=== PATIENT | male | born 1940 | race Caucasian/White ===

== ENCOUNTER 2022-12-26 21:05 | Inpatient (IN) | payer MEDICAID, OTHER ==
[~2022-12-26] VITALS: Ht 182.9 cm; Wt 77.1 kg
[~2022-12-26 21:05] MED LIST: ETOMIDATE 20 MG/10 ML VIAL ONE; SUCCINYLCHOLINE CHLORIDE 200 MG/10 ML VIAL ONE
[2022-12-26] MEDS ORDERED: levoFLOXacin 750MG/D5W 150 ML IV ONE ×2 (21:30→22:35)
[2022-12-26] MEDS ORDERED: ETOMIDATE 20 MG/10 ML VIAL IV ONE (21:30)
[2022-12-26] MEDS ORDERED: CEFTRIAXONE 1 G in IV DEXTROSE 5% 50 ML IV ONE (21:30)
[2022-12-26] MEDS ORDERED: IV NORMAL SALINE 1000 ML BAG IV ONE (21:30)
[2022-12-26] MEDS ORDERED: SUCCINYLCHOLINE CHLORIDE 200 MG/10 ML VIAL IV ONE (21:30)
[2022-12-26] MEDS ORDERED: PROPOFOL 100 ML ONE (21:31)
[2022-12-26] MEDS ORDERED: CARB1TAB21 PO (21:37)
[2022-12-26] MEDS ORDERED: ZOLP5TAB8 PO (21:37)
[2022-12-26] MEDS ORDERED: QUET25TA PO (21:37)
[2022-12-26] MEDS ORDERED: CHOL10005 PO (21:37)
[2022-12-26 21:57] LABS: BASOPHILS % (AUTO) 0.5 % (0.0-2.0); EOSINOPHILS % (AUTO) 0.5 % (0.0-7.0); HEMATOCRIT 38.8 % (36.7-47.1); HEMOGLOBIN 12.9 g/dL (12.5-16.3); LYMPHOCYTES % (AUTO) 12.1 % (20.5-51.5); MEAN CORPUSCULAR HEMOGLOBIN 28.4 uug (23.8-33.4); MEAN CORPUSCULAR HGB CONC 33 g/dL (32.5-36.3); MEAN CORPUSCULAR VOLUME 85.4 fL (73.0-96.2); MONOCYTES # (AUTO) 0.8 K/uL (0.1-1.30); MONOCYTES % (AUTO) 9.8 % (0.0-11.0); NEUTROPHILS # (AUTO) 6.2 K/uL (1.8-8.9); NEUTROPHILS % (AUTO) 77.1 % (38.5-71.5); PLATELET COUNT (AUTO) 126 K/uL (152-348); RED BLOOD CELL COUNT(AUTO) 4.54 MIL/uL (4.06-5.63); RED CELL DISTRIBUTION WIDTH 16.5 % (12.1-16.2)
[2022-12-26 22:03] LABS: DIFFERENTIAL COMMENT 1
[2022-12-26 22:17] LABS: ABG BASE EXCESS -3.8 mmol/L; ABG HCO3 20.6 mmol/L; ABG PCO2 35.2 mmHg (35.0-45.0); ABG PH 7.385 (7.350-7.450); ABG PO2 162.9 mmHg (75.0-100.0); ABG SITE LEFT RADIAL; ABG TOTAL HEMOGLOBIN 13.3 G/dL (13.5-18.0); COHb 1.4 % (0.5-1.5); MetHb 0.2 % (0.0-1.5); O2Hb 97.5 % (94.0-97.0); VENT MODE VENT - A/C; VT, ABG 550 mL
[2022-12-26 22:23] LABS: ALANINE AMINOTRANSFERASE 6 U/L (16-63); ALBUMIN 3.2 g/dL (3.4-5.0); ALKALINE PHOSPHATASE 55 U/L (50-136); ASPARTATE AMINOTRANSFERASE 6 U/L (15-37); BILIRUBIN,DIRECT 0.2 mg/dL (0.0-0.2); BILIRUBIN,TOTAL 0.9 mg/dL (0.2-1.0); CALCIUM 8.3 mg/dL (8.5-10.1); CARBON DIOXIDE 30 mmol/L (21-32); CHLORIDE 107 mmol/L (98-107); CREATININE 2.2 mg/dL (0.6-1.3); GLUCOSE 105 mg/dL (74-106); NT-PRO BNP 2416 pg/mL (0-125); POTASSIUM 5.1 mmol/L (3.5-5.1); SODIUM SERUM 142 mmol/L (136-145); TOTAL PROTEIN, SERUM 6.6 g/dL (6.4-8.2); UREA NITROGEN, BLOOD 45 mg/dL (7-18)
[2022-12-26] MEDS ORDERED: CEFTRIAXONE /D5W 50ML IVPB **ER PYXIS IV ONE (22:35)
[2022-12-26] MEDS ORDERED: ONDANSETRON 4 MG/2 ML VIAL IV PRN (23:15)
[2022-12-26] MEDS ORDERED: PROPOFOL 100 ML IV ONE (23:30)
[2022-12-27] VITALS (36 sets, daily range): BP systolic 51–149; BP diastolic 27–90; TEMP 97.8–101.8; O2SAT 80–100
[2022-12-27 00:34] LABS: *BILIRUBIN,URIN NEGATIVE (NEGATIVE); *BLOOD, URINE 2+ (NEGATIVE); *CLARITY,URINE CLEAR (CLEAR); *COLOR,URINE YELLOW (YELLOW); *KETONES,URINE TRACE (NEGATIVE); *PROTEIN,URINE NEGATIVE (NEGATIVE); *UROBILINOGEN,URINE 0.2 E.U./dl (NORMAL); LEUKOCYTE ESTERASE ,URINE NEGATIVE (NEGATIVE); NITRITE, URINE NEGATIVE (NEGATIVE); PH,URINE 5.5 (5.0-8.0); UGLUCOSE NEGATIVE (NEGATIVE)
[2022-12-27 00:48] LABS: BACTERIA,URINE FEW /HPF (NONE SEEN); RBC,URINE 20-50 /HPF (0-3)
[2022-12-27 00:49] LABS: SQUAMOUS EPITHELIAL CELL,UR FEW /HPF (NONE SEEN)
[2022-12-27] MEDS ORDERED: VANCOMYCIN HCL 500 MG VIAL ONE ×2 (01:32→21:41)
[2022-12-27] MEDS ORDERED: VANCOMYCIN 1000 MG VIAL ONE ×2 (01:32→21:41)
[2022-12-27] MEDS ORDERED: CEFEPIME HCL 1 G VIAL ONE ×2 (01:32→21:41)
[2022-12-27] MEDS: VANCOMYCIN IV 1,500 MG in IV DEXTROSE 5% 500 ML IV ONE ×2 (01:45→02:01)
[2022-12-27] MEDS: CEFEPIME HCL 2 G in IV DEXTROSE 5% 100 ML IV SCH ×3 (01:45→13:23)
[2022-12-27] MEDS: IV NS 1000 ML 1,000 ML IV PRN ×3 (01:59→18:04)
[2022-12-27] MEDS ORDERED: PROPOFOL 100 ML IV ONE (02:15)
[2022-12-27] MEDS ORDERED: PROPOFOL 100 ML ONE ×3 (02:21→17:11)
[2022-12-27 05:27] LABS: BASOPHILS % (AUTO) 0.7 % (0.0-2.0); EOSINOPHILS # (AUTO) 0.1 K/uL (0.0-0.7); EOSINOPHILS % (AUTO) 2.3 % (0.0-7.0); HEMATOCRIT 33.7 % (36.7-47.1); LYMPHOCYTES # (AUTO) 0.8 K/uL (0.8-4.8); LYMPHOCYTES % (AUTO) 21.7 % (20.5-51.5); MEAN CORPUSCULAR HEMOGLOBIN 27.9 uug (23.8-33.4); MEAN CORPUSCULAR HGB CONC 33 g/dL (32.5-36.3); MEAN CORPUSCULAR VOLUME 85.1 fL (73.0-96.2); MONOCYTES # (AUTO) 0.3 K/uL (0.1-1.30); MONOCYTES % (AUTO) 8.8 % (0.0-11.0); NEUTROPHILS # (AUTO) 2.5 K/uL (1.8-8.9); NEUTROPHILS % (AUTO) 66.5 % (38.5-71.5); PLATELET COUNT (AUTO) 97 K/uL (152-348); RED BLOOD CELL COUNT(AUTO) 3.96 MIL/uL (4.06-5.63); RED CELL DISTRIBUTION WIDTH 16.6 % (12.1-16.2); WHITE BLOOD COUNT (AUTO) 3.8 K/uL (3.6-10.2)
[2022-12-27 05:29] LABS: DIFFERENTIAL COMMENT 1
[2022-12-27] MEDS ORDERED: CEFEPIME HCL 2 G in IV DEXTROSE 5% 100 ML IV SCH (06:00)
[2022-12-27 06:06] LABS: CHLORIDE 110 mmol/L (98-107); POTASSIUM 4.9 mmol/L (3.5-5.1); SODIUM SERUM 141 mmol/L (136-145)
[2022-12-27 06:07] LABS: CALCIUM 7.3 mg/dL (8.5-10.1); CARBON DIOXIDE 24 mmol/L (21-32); CREATININE 1.8 mg/dL (0.6-1.3); GLUCOSE 114 mg/dL (74-106); PHOSPHOROUS 3.3 mg/dL (2.5-4.9); UREA NITROGEN, BLOOD 41 mg/dL (7-18)
[2022-12-27 06:08] LABS: ALANINE AMINOTRANSFERASE < 6 U/L (16-63); ALBUMIN 2.5 g/dL (3.4-5.0); ALKALINE PHOSPHATASE 50 U/L (50-136); ASPARTATE AMINOTRANSFERASE 9 U/L (15-37); BILIRUBIN,TOTAL 0.5 mg/dL (0.2-1.0); MAGNESIUM 1.7 mg/dL (1.8-2.4); TOTAL PROTEIN, SERUM 5.6 g/dL (6.4-8.2)
[2022-12-27 06:24] LABS: EOSINOPHILS % (MANUAL) 2 % (0-8); LYMPHOCYTES % (MANUAL) 22 % (20-40); MONOCYTES % (MANUAL) 7 % (2-10); NEUTROPHILS % (MANUAL) 69 % (42-75); PLATELET ESTIMATE MARKED DECREASED
[2022-12-27 06:25] LABS: ANISOCYTOSIS 1+
[2022-12-27] MEDS ORDERED: NOREPINEPHRINE BITARTRATE 32 MG in IV NORMAL SALINE 218 ML IV PRN (07:00)
[2022-12-27] MEDS ORDERED: NOREPINEPHRINE BITARTRATE 4 MG/4 ML VIAL IV ONE (07:01)
[2022-12-27] MEDS: PHENYLEPHRINE IV 100 MG in IV NORMAL SALINE 240 ML IV PRN ×2 (08:17→18:21)
[2022-12-27] MEDS ORDERED: MAGNESIUM SULFATE/D5W 100 ML IV SCH (09:30)
[2022-12-27] MEDS: PROPOFOL 100 ML IV PRN ×2 (10:04→17:53)
[2022-12-27 10:08] LABS: ABG BASE EXCESS -10.3 mmol/L; ABG HCO3 16.6 mmol/L; ABG PCO2 40.3 mmHg (35.0-45.0); ABG PH 7.233 (7.350-7.450); ABG PO2 110.5 mmHg (75.0-100.0); ABG SITE RIGHT RADIAL; ABG TOTAL HEMOGLOBIN 14.8 G/dL (13.5-18.0); COHb 0.9 % (0.5-1.5); MetHb 0.2 % (0.0-1.5); O2Hb 97.1 % (94.0-97.0); VENT MODE VENT - A/C; VT, ABG 550 mL
[2022-12-27] MEDS ORDERED: HEPARIN SODIUM,PORCINE 5,000 UNITS/ML VIAL ONE (11:08)
[2022-12-27] MEDS: HEPARIN SODIUM,PORCINE 5,000 UNITS/ML VIAL SQ SCH ×2 (11:13→21:19)
[2022-12-27] MEDS: ACETAMINOPHEN 650 MG SUPP.RECT RC PRN (16:42)
[2022-12-28] VITALS (29 sets, daily range): BP systolic 88–148; BP diastolic 40–83; TEMP 97.8–103.9; O2SAT 96–100
[2022-12-28] MEDS: CEFEPIME HCL 2 G in IV DEXTROSE 5% 100 ML IV SCH ×2 (01:41→14:25)
[2022-12-28] MEDS: PROPOFOL 100 ML IV PRN ×4 (02:42→18:58)
[2022-12-28] MEDS ORDERED: VANCOMYCIN IV 1,250 MG in IV DEXTROSE 5% 250 ML IV SCH (04:00)
[2022-12-28 05:01] LABS: BASOPHILS % (AUTO) 0.5 % (0.0-2.0); EOSINOPHILS % (AUTO) 0.3 % (0.0-7.0); HEMATOCRIT 39.3 % (36.7-47.1); HEMOGLOBIN 12.8 g/dL (12.5-16.3); LYMPHOCYTES # (AUTO) 0.9 K/uL (0.8-4.8); LYMPHOCYTES % (AUTO) 13.4 % (20.5-51.5); MEAN CORPUSCULAR HEMOGLOBIN 27.8 uug (23.8-33.4); MEAN CORPUSCULAR HGB CONC 33 g/dL (32.5-36.3); MEAN CORPUSCULAR VOLUME 85.6 fL (73.0-96.2); MONOCYTES # (AUTO) 0.7 K/uL (0.1-1.30); MONOCYTES % (AUTO) 10.2 % (0.0-11.0); NEUTROPHILS # (AUTO) 5.1 K/uL (1.8-8.9); NEUTROPHILS % (AUTO) 75.6 % (38.5-71.5); PLATELET COUNT (AUTO) 136 K/uL (152-348); RED CELL DISTRIBUTION WIDTH 17.2 % (12.1-16.2); WHITE BLOOD COUNT (AUTO) 6.7 K/uL (3.6-10.2)
[2022-12-28 05:07] LABS: *SODIUM RNDM,URINE 70 mmol/L (40-220)
[2022-12-28 05:08] LABS: DIFFERENTIAL COMMENT 1
[2022-12-28 05:11] LABS: ALANINE AMINOTRANSFERASE 24 U/L (16-63); ALBUMIN 2.2 g/dL (3.4-5.0); ALKALINE PHOSPHATASE 63 U/L (50-136); ASPARTATE AMINOTRANSFERASE 36 U/L (15-37); BILIRUBIN,TOTAL 0.6 mg/dL (0.2-1.0); CALCIUM 7.9 mg/dL (8.5-10.1); CARBON DIOXIDE 22 mmol/L (21-32); CHLORIDE 110 mmol/L (98-107); CREATININE 2.1 mg/dL (0.6-1.3); GLUCOSE 133 mg/dL (74-106); POTASSIUM 5.4 mmol/L (3.5-5.1); SODIUM SERUM 140 mmol/L (136-145); TOTAL PROTEIN, SERUM 5.8 g/dL (6.4-8.2); UREA NITROGEN, BLOOD 42 mg/dL (7-18)
[2022-12-28] MEDS: IV NS 1000 ML 1,000 ML IV PRN ×2 (06:35→18:58)
[2022-12-28] MEDS: ACETAMINOPHEN 650 MG SUPP.RECT RC PRN ×2 (08:10→18:39)
[2022-12-28 08:13] LABS: ABG BASE EXCESS -5.7 mmol/L; ABG HCO3 19.1 mmol/L; ABG PCO2 35.7 mmHg (35.0-45.0); ABG PH 7.347 (7.350-7.450); ABG PO2 85.1 mmHg (75.0-100.0); ABG SITE LEFT RADIAL; ABG TOTAL HEMOGLOBIN 13.9 G/dL (13.5-18.0); COHb 0.5 % (0.5-1.5); MetHb 0.3 % (0.0-1.5); O2Hb 95.7 % (94.0-97.0); VENT MODE VENT - A/C; VT, ABG 550 mL
[2022-12-28] MEDS: HEPARIN SODIUM,PORCINE 5,000 UNITS/ML VIAL SQ SCH ×2 (08:16→20:53)
[2022-12-28] MEDS ORDERED: SODIUM POLYSTYRENE SULFONATE 15 G/60 ML LIQUID UDC PO ONE (08:30)
[2022-12-28] MEDS ORDERED: SODIUM POLYSTYRENE SULFONATE 15 G/60 ML LIQUID UDC NG ONE (09:00)
[2022-12-28] MEDS: FAMOTIDINE. 20 MG/2 ML VIAL IV SCH (09:24)
[2022-12-28] MEDS: PHENYLEPHRINE IV 100 MG in IV NORMAL SALINE 240 ML IV PRN (11:49)
[2022-12-28] MEDS: JEVITY 1.2 1000 ML LIQUID GT PRN (14:55)
[2022-12-28] MEDS: PROTEIN SUPPLEMENT (PROSTAT) 30 ML LIQUID GT SCH (17:25)
[2022-12-29] VITALS (41 sets, daily range): BP systolic 95–150; BP diastolic 50–100; TEMP 97.7–100; O2SAT 94–100
[2022-12-29] MEDS: CEFEPIME HCL 2 G in IV DEXTROSE 5% 100 ML IV SCH ×2 (02:50→13:31)
[2022-12-29] MEDS: PROPOFOL 100 ML IV PRN ×3 (03:01→21:31)
[2022-12-29 04:46] LABS: BASOPHILS % (AUTO) 0.7 % (0.0-2.0); EOSINOPHILS # (AUTO) 0.2 K/uL (0.0-0.7); EOSINOPHILS % (AUTO) 3.5 % (0.0-7.0); HEMATOCRIT 34.6 % (36.7-47.1); HEMOGLOBIN 11.4 g/dL (12.5-16.3); LYMPHOCYTES # (AUTO) 0.8 K/uL (0.8-4.8); LYMPHOCYTES % (AUTO) 15.4 % (20.5-51.5); MEAN CORPUSCULAR HEMOGLOBIN 27.8 uug (23.8-33.4); MEAN CORPUSCULAR HGB CONC 33 g/dL (32.5-36.3); MEAN CORPUSCULAR VOLUME 84.7 fL (73.0-96.2); MONOCYTES # (AUTO) 0.5 K/uL (0.1-1.30); NEUTROPHILS # (AUTO) 3.7 K/uL (1.8-8.9); NEUTROPHILS % (AUTO) 71.4 % (38.5-71.5); PLATELET COUNT (AUTO) 109 K/uL (152-348); RED BLOOD CELL COUNT(AUTO) 4.09 MIL/uL (4.06-5.63); RED CELL DISTRIBUTION WIDTH 16.9 % (12.1-16.2); WHITE BLOOD COUNT (AUTO) 5.2 K/uL (3.6-10.2)
[2022-12-29 05:19] LABS: CARBON DIOXIDE 22 mmol/L (21-32); CHLORIDE 113 mmol/L (98-107); CREATININE 1.5 mg/dL (0.6-1.3); GLUCOSE 123 mg/dL (74-106); MAGNESIUM 1.9 mg/dL (1.8-2.4); PHOSPHOROUS 2.4 mg/dL (2.5-4.9); POTASSIUM 4.3 mmol/L (3.5-5.1); SODIUM SERUM 144 mmol/L (136-145); UREA NITROGEN, BLOOD 36 mg/dL (7-18); VANCOMYCIN,RANDOM 14.5 ug/mL (18.0-26.0)
[2022-12-29 05:20] LABS: DIFFERENTIAL COMMENT 1
[2022-12-29] MEDS ORDERED: ACETAMINOPHEN 650 MG/20.3 ML LIQUID UDC NG PRN (07:30)
[2022-12-29] MEDS: IV NS 1000 ML 1,000 ML IV PRN ×2 (07:49→21:30)
[2022-12-29 08:07] LABS: ABG BASE EXCESS -5.9 mmol/L; ABG HCO3 17.5 mmol/L; ABG PCO2 28.1 mmHg (35.0-45.0); ABG PH 7.412 (7.350-7.450); ABG PO2 66.4 mmHg (75.0-100.0); ABG SITE RIGHT RADIAL; ABG TOTAL HEMOGLOBIN 11.8 G/dL (13.5-18.0); COHb 0.7 % (0.5-1.5); MetHb 0.3 % (0.0-1.5); O2Hb 92.6 % (94.0-97.0); VENT MODE VENT - A/C; VT, ABG 550 mL
[2022-12-29] MEDS: FAMOTIDINE. 20 MG/2 ML VIAL IV SCH (08:32)
[2022-12-29] MEDS: PROTEIN SUPPLEMENT (PROSTAT) 30 ML LIQUID GT SCH ×2 (08:32→17:07)
[2022-12-29] MEDS: HEPARIN SODIUM,PORCINE 5,000 UNITS/ML VIAL SQ SCH ×2 (08:34→21:22)
[2022-12-29] MEDS ORDERED: VANCOMYCIN IV 1,250 MG in IV DEXTROSE 5% 250 ML IV ONE (10:00)
[2022-12-29] MEDS ORDERED: VANCOMYCIN IV 1,500 MG in IV DEXTROSE 5% 500 ML IV ONE (10:30)
[2022-12-29] MEDS ORDERED: NEUTRA PHOS PACKET PO ONE ×2 (16:00→18:00)
[2022-12-29] MEDS ORDERED: HEPARIN SODIUM,PORCINE 5,000 UNITS/ML VIAL ONE (21:09)
[2022-12-29] MEDS ORDERED: PROPOFOL 100 ML ONE (21:10)
[2022-12-29] MEDS ORDERED: CEFEPIME HCL 1 G VIAL ONE (23:50)
[2022-12-30] VITALS (32 sets, daily range): BP systolic 60–147; BP diastolic 49–74; TEMP 97.7–98.2; O2SAT 91–98
[2022-12-30] MEDS: JEVITY 1.2 1000 ML LIQUID GT PRN (00:01)
[2022-12-30] MEDS: CEFEPIME HCL 2 G in IV DEXTROSE 5% 100 ML IV SCH ×2 (01:27→13:02)
[2022-12-30 05:19] LABS: BASOPHILS % (AUTO) 0.7 % (0.0-2.0); EOSINOPHILS # (AUTO) 0.2 K/uL (0.0-0.7); EOSINOPHILS % (AUTO) 6.9 % (0.0-7.0); HEMATOCRIT 30.7 % (36.7-47.1); HEMOGLOBIN 10.2 g/dL (12.5-16.3); LYMPHOCYTES # (AUTO) 0.6 K/uL (0.8-4.8); LYMPHOCYTES % (AUTO) 18.3 % (20.5-51.5); MEAN CORPUSCULAR HEMOGLOBIN 28.2 uug (23.8-33.4); MEAN CORPUSCULAR HGB CONC 33 g/dL (32.5-36.3); MEAN CORPUSCULAR VOLUME 84.7 fL (73.0-96.2); MONOCYTES # (AUTO) 0.3 K/uL (0.1-1.30); MONOCYTES % (AUTO) 10.4 % (0.0-11.0); NEUTROPHILS % (AUTO) 63.7 % (38.5-71.5); PLATELET COUNT (AUTO) 89 K/uL (152-348); RED BLOOD CELL COUNT(AUTO) 3.63 MIL/uL (4.06-5.63); RED CELL DISTRIBUTION WIDTH 17.2 % (12.1-16.2); WHITE BLOOD COUNT (AUTO) 3.1 K/uL (3.6-10.2)
[2022-12-30 05:33] LABS: DIFFERENTIAL COMMENT 1
[2022-12-30 05:34] LABS: ALANINE AMINOTRANSFERASE 25 U/L (16-63); ALBUMIN 1.7 g/dL (3.4-5.0); ALKALINE PHOSPHATASE 55 U/L (50-136); ASPARTATE AMINOTRANSFERASE 12 U/L (15-37); BILIRUBIN,TOTAL 0.5 mg/dL (0.2-1.0); CALCIUM 7.6 mg/dL (8.5-10.1); CARBON DIOXIDE 24 mmol/L (21-32); CHLORIDE 113 mmol/L (98-107); CREATININE 1.4 mg/dL (0.6-1.3); GLUCOSE 136 mg/dL (74-106); MAGNESIUM 1.3 mg/dL (1.8-2.4); PHOSPHOROUS 2.8 mg/dL (2.5-4.9); SODIUM SERUM 144 mmol/L (136-145); UREA NITROGEN, BLOOD 35 mg/dL (7-18)
[2022-12-30] MEDS ORDERED: PROPOFOL 100 ML ONE ×3 (05:55→23:57)
[2022-12-30] MEDS: PROPOFOL 100 ML IV PRN ×2 (05:56→15:53)
[2022-12-30] MEDS ORDERED: HEPARIN SODIUM,PORCINE 5,000 UNITS/ML VIAL ONE ×2 (07:45→20:24)
[2022-12-30] MEDS ORDERED: FAMOTIDINE. 20 MG/2 ML VIAL IV ONE (07:46)
[2022-12-30 07:59] LABS: ABG BASE EXCESS -4.4 mmol/L; ABG HCO3 18.9 mmol/L; ABG PCO2 30.5 mmHg (35.0-45.0); ABG PH 7.409 (7.350-7.450); ABG PO2 66.5 mmHg (75.0-100.0); ABG SITE LEFT RADIAL; ABG TOTAL HEMOGLOBIN 15.5 G/dL (13.5-18.0); COHb 0.8 % (0.5-1.5); MetHb 0.2 % (0.0-1.5); O2Hb 92.7 % (94.0-97.0); VENT MODE VENT - A/C; VT, ABG 550 mL
[2022-12-30] MEDS: FAMOTIDINE. 20 MG/2 ML VIAL IV SCH (08:01)
[2022-12-30] MEDS: HEPARIN SODIUM,PORCINE 5,000 UNITS/ML VIAL SQ SCH ×2 (08:02→20:26)
[2022-12-30] MEDS: PROTEIN SUPPLEMENT (PROSTAT) 30 ML LIQUID GT SCH ×2 (08:24→17:19)
[2022-12-30] MEDS ORDERED: MAGNESIUM SULFATE/D5W 200 ML ONE (09:23)
[2022-12-30] MEDS: MAGNESIUM SULFATE/D5W 100 ML IV SCH ×2 (09:24→10:25)
[2022-12-30] MEDS: IV NS 1000 ML 1,000 ML IV PRN (12:58)
[2022-12-31] VITALS (25 sets, daily range): BP systolic 109–184; BP diastolic 54–100; TEMP 97.8–98.7; O2SAT 94–99
[2022-12-31] MEDS: PROPOFOL 100 ML IV PRN ×2 (00:02→07:23)
[2022-12-31] MEDS: CEFEPIME HCL 2 G in IV DEXTROSE 5% 100 ML IV SCH (01:08)
[2022-12-31] MEDS: IV NS 1000 ML 1,000 ML IV PRN ×2 (01:08→15:58)
[2022-12-31 04:59] LABS: BASOPHILS % (AUTO) 1.1 % (0.0-2.0); EOSINOPHILS # (AUTO) 0.2 K/uL (0.0-0.7); EOSINOPHILS % (AUTO) 7.5 % (0.0-7.0); HEMOGLOBIN 10.2 g/dL (12.5-16.3); LYMPHOCYTES # (AUTO) 0.6 K/uL (0.8-4.8); LYMPHOCYTES % (AUTO) 17.7 % (20.5-51.5); MEAN CORPUSCULAR HEMOGLOBIN 27.9 uug (23.8-33.4); MEAN CORPUSCULAR HGB CONC 33 g/dL (32.5-36.3); MEAN CORPUSCULAR VOLUME 84.5 fL (73.0-96.2); MONOCYTES # (AUTO) 0.5 K/uL (0.1-1.30); MONOCYTES % (AUTO) 14.9 % (0.0-11.0); NEUTROPHILS # (AUTO) 1.9 K/uL (1.8-8.9); NEUTROPHILS % (AUTO) 58.8 % (38.5-71.5); PLATELET COUNT (AUTO) 95 K/uL (152-348); RED BLOOD CELL COUNT(AUTO) 3.67 MIL/uL (4.06-5.63); RED CELL DISTRIBUTION WIDTH 16.7 % (12.1-16.2); WHITE BLOOD COUNT (AUTO) 3.3 K/uL (3.6-10.2)
[2022-12-31 05:09] LABS: DIFFERENTIAL COMMENT 1
[2022-12-31 05:18] LABS: CALCIUM 7.2 mg/dL (8.5-10.1); CARBON DIOXIDE 23 mmol/L (21-32); CHLORIDE 113 mmol/L (98-107); CREATININE 1.2 mg/dL (0.6-1.3); GLUCOSE 144 mg/dL (74-106); PHOSPHOROUS 2.5 mg/dL (2.5-4.9); POTASSIUM 4.3 mmol/L (3.5-5.1); SODIUM SERUM 143 mmol/L (136-145); TRIGLYCERIDES 116 MG/DL (30-150); UREA NITROGEN, BLOOD 41 mg/dL (7-18)
[2022-12-31] MEDS ORDERED: PROPOFOL 100 ML ONE (07:21)
[2022-12-31] MEDS ORDERED: HEPARIN SODIUM,PORCINE 5,000 UNITS/ML VIAL ONE ×2 (07:50→21:02)
[2022-12-31] MEDS ORDERED: FAMOTIDINE. 20 MG/2 ML VIAL IV ONE (07:51)
[2022-12-31] MEDS: FAMOTIDINE. 20 MG/2 ML VIAL IV SCH (07:53)
[2022-12-31] MEDS: HEPARIN SODIUM,PORCINE 5,000 UNITS/ML VIAL SQ SCH ×2 (07:54→21:07)
[2022-12-31] MEDS: PROTEIN SUPPLEMENT (PROSTAT) 30 ML LIQUID GT SCH ×2 (07:56→17:17)
[2022-12-31] MEDS ORDERED: ENALAPRILAT DIHYDRATE 1.25 MG/1 ML VIAL IV ONE ×2 (08:54→20:39)
[2022-12-31] MEDS: ENALAPRILAT DIHYDRATE 1.25 MG/1 ML VIAL IV PRN ×2 (08:56→20:42)
[2022-12-31] MEDS: MEROPENEM 1 G in IV NORMAL SALINE 100 ML IV SCH ×2 (09:52→17:17)
[2022-12-31] MEDS ORDERED: MEROPENEM 1 G in IV NORMAL SALINE 100 ML IV SCH (10:00)
[2023-01-01] VITALS (26 sets, daily range): BP systolic 134–181; BP diastolic 55–83; TEMP 98.3–98.9; O2SAT 92–99
[2023-01-01 00:04] LABS: ABG BASE EXCESS -3.7 mmol/L; ABG HCO3 20.2 mmol/L; ABG PCO2 33.1 mmHg (35.0-45.0); ABG PH 7.404 (7.350-7.450); ABG PO2 88.2 mmHg (75.0-100.0); ABG SITE LEFT RADIAL; ABG TOTAL HEMOGLOBIN 12.5 G/dL (13.5-18.0); COHb 0.6 % (0.5-1.5); MetHb 0.3 % (0.0-1.5); O2Hb 96.1 % (94.0-97.0); VENT MODE CPAP
[2023-01-01] MEDS: MEROPENEM 1 G in IV NORMAL SALINE 100 ML IV SCH ×3 (01:22→18:11)
[2023-01-01 04:44] LABS: BASOPHILS % (AUTO) 0.7 % (0.0-2.0); EOSINOPHILS # (AUTO) 0.2 K/uL (0.0-0.7); EOSINOPHILS % (AUTO) 3.7 % (0.0-7.0); HEMATOCRIT 32.2 % (36.7-47.1); HEMOGLOBIN 10.6 g/dL (12.5-16.3); LYMPHOCYTES # (AUTO) 0.7 K/uL (0.8-4.8); LYMPHOCYTES % (AUTO) 14.4 % (20.5-51.5); MEAN CORPUSCULAR HEMOGLOBIN 27.9 uug (23.8-33.4); MEAN CORPUSCULAR HGB CONC 33 g/dL (32.5-36.3); MEAN CORPUSCULAR VOLUME 84.6 fL (73.0-96.2); MONOCYTES # (AUTO) 0.8 K/uL (0.1-1.30); MONOCYTES % (AUTO) 16.9 % (0.0-11.0); NEUTROPHILS # (AUTO) 2.9 K/uL (1.8-8.9); NEUTROPHILS % (AUTO) 64.3 % (38.5-71.5); PLATELET COUNT (AUTO) 115 K/uL (152-348); RED BLOOD CELL COUNT(AUTO) 3.81 MIL/uL (4.06-5.63); RED CELL DISTRIBUTION WIDTH 16.3 % (12.1-16.2); WHITE BLOOD COUNT (AUTO) 4.6 K/uL (3.6-10.2)
[2023-01-01 04:50] LABS: DIFFERENTIAL COMMENT 1
[2023-01-01 04:53] LABS: CALCIUM 7.6 mg/dL (8.5-10.1); CREATININE 1.2 mg/dL (0.6-1.3); MAGNESIUM 1.8 mg/dL (1.8-2.4); PHOSPHOROUS 2.9 mg/dL (2.5-4.9); POTASSIUM 4.7 mmol/L (3.5-5.1)
[2023-01-01] MEDS ORDERED: ENALAPRILAT DIHYDRATE 1.25 MG/1 ML VIAL IV ONE (05:42)
[2023-01-01] MEDS: ENALAPRILAT DIHYDRATE 1.25 MG/1 ML VIAL IV PRN ×2 (05:44→18:13)
[2023-01-01 06:58] LABS: ABG BASE EXCESS 0.2 mmol/L; ABG HCO3 23.5 mmol/L; ABG PCO2 34.1 mmHg (35.0-45.0); ABG PH 7.457 (7.350-7.450); ABG PO2 67.9 mmHg (75.0-100.0); ABG SITE LEFT RADIAL; ABG TOTAL HEMOGLOBIN 12.4 G/dL (13.5-18.0); COHb 0.5 % (0.5-1.5); CPAP,BG 8 cmH20; O2Hb 94.1 % (94.0-97.0); VENT MODE CPAP
[2023-01-01] MEDS ORDERED: DC PROPOFOL ONCE EXTUBATED XX PRN (08:15)
[2023-01-01] MEDS ORDERED: HEPARIN SODIUM,PORCINE 5,000 UNITS/ML VIAL ONE ×2 (08:38→20:13)
[2023-01-01] MEDS ORDERED: FAMOTIDINE. 20 MG/2 ML VIAL IV ONE (08:38)
[2023-01-01] MEDS: FAMOTIDINE. 20 MG/2 ML VIAL IV SCH (08:39)
[2023-01-01] MEDS: HEPARIN SODIUM,PORCINE 5,000 UNITS/ML VIAL SQ SCH ×2 (08:40→20:19)
[2023-01-01] MEDS: PROTEIN SUPPLEMENT (PROSTAT) 30 ML LIQUID GT SCH ×2 (08:43→18:12)
[2023-01-01 11:40] LABS: ANISOCYTOSIS 2+; BAND % (MANUAL) 2 % (0-10); EOSINOPHILS % (MANUAL) 4 % (0-8); LYMPHOCYTES % (MANUAL) 24 % (20-40); MONOCYTES % (MANUAL) 14 % (2-10); NEUTROPHILS % (MANUAL) 56 % (42-75); PLATELET ESTIMATE DECREASED
[2023-01-01] MEDS: IV NS 1000 ML 1,000 ML IV PRN (18:14)
[2023-01-01] MEDS ORDERED: FUROSEMIDE 40 MG/4 ML VIAL IV ONE (18:45)
[2023-01-01] MEDS ORDERED: METOPROLOL TARTRATE 5 MG/5 ML VIAL IVP PRN (19:45)
[2023-01-01] MEDS ORDERED: FUROSEMIDE 40 MG/4 ML VIAL ONE (20:13)
[2023-01-02] VITALS (29 sets, daily range): BP systolic 127–162; BP diastolic 55–89; TEMP 98.4–99.2; O2SAT 91–99
[2023-01-02] MEDS: MEROPENEM 1 G in IV NORMAL SALINE 100 ML IV SCH ×3 (02:13→17:01)
[2023-01-02 04:38] LABS: BASOPHILS % (AUTO) 0.8 % (0.0-2.0); EOSINOPHILS # (AUTO) 0.2 K/uL (0.0-0.7); HEMATOCRIT 34.3 % (36.7-47.1); HEMOGLOBIN 11.3 g/dL (12.5-16.3); LYMPHOCYTES # (AUTO) 0.6 K/uL (0.8-4.8); LYMPHOCYTES % (AUTO) 11.2 % (20.5-51.5); MEAN CORPUSCULAR HEMOGLOBIN 27.8 uug (23.8-33.4); MEAN CORPUSCULAR HGB CONC 33 g/dL (32.5-36.3); MEAN CORPUSCULAR VOLUME 84.3 fL (73.0-96.2); MONOCYTES # (AUTO) 0.8 K/uL (0.1-1.30); NEUTROPHILS # (AUTO) 3.7 K/uL (1.8-8.9); PLATELET COUNT (AUTO) 123 K/uL (152-348); RED BLOOD CELL COUNT(AUTO) 4.07 MIL/uL (4.06-5.63); RED CELL DISTRIBUTION WIDTH 16.6 % (12.1-16.2); WHITE BLOOD COUNT (AUTO) 5.4 K/uL (3.6-10.2)
[2023-01-02 04:56] LABS: CREATININE 1.2 mg/dL (0.6-1.3); MAGNESIUM 1.7 mg/dL (1.8-2.4); PHOSPHOROUS 3.5 mg/dL (2.5-4.9); POTASSIUM 4.7 mmol/L (3.5-5.1)
[2023-01-02 05:01] LABS: DIFFERENTIAL COMMENT 1
[2023-01-02 05:14] LABS: NEUTROPHILS % (MANUAL) 0 % (42-75)
[2023-01-02] MEDS ORDERED: FAMOTIDINE 20 MG TABLET ONE (09:02)
[2023-01-02] MEDS ORDERED: HEPARIN SODIUM,PORCINE 5,000 UNITS/ML VIAL ONE ×2 (09:02→20:18)
[2023-01-02] MEDS: PROTEIN SUPPLEMENT (PROSTAT) 30 ML LIQUID GT SCH ×2 (09:06→16:54)
[2023-01-02] MEDS: HEPARIN SODIUM,PORCINE 5,000 UNITS/ML VIAL SQ SCH ×2 (09:06→20:21)
[2023-01-02] MEDS: FAMOTIDINE 20 MG TABLET GT SCH (09:06)
[2023-01-02] MEDS ORDERED: FUROSEMIDE 40 MG/4 ML VIAL IV ONE (11:15)
[2023-01-02 11:33] LABS: ABG BASE EXCESS 5.1 mmol/L; ABG HCO3 28.6 mmol/L; ABG PCO2 38.1 mmHg (35.0-45.0); ABG PH 7.493 (7.350-7.450); ABG PO2 72.3 mmHg (75.0-100.0); ABG SITE RIGHT RADIAL; ABG TOTAL HEMOGLOBIN 12.2 G/dL (13.5-18.0); COHb 0.5 % (0.5-1.5); O2Hb 94.7 % (94.0-97.0)
[2023-01-02 11:33] LABS: ABG BASE EXCESS 1.9 mmol/L; ABG HCO3 24.5 mmol/L; ABG PCO2 31.9 mmHg (35.0-45.0); ABG PH 7.503 (7.350-7.450); ABG PO2 65.8 mmHg (75.0-100.0); ABG SITE RIGHT RADIAL; ABG TOTAL HEMOGLOBIN 12.1 G/dL (13.5-18.0); COHb 0.5 % (0.5-1.5); MetHb 0.1 % (0.0-1.5)
[2023-01-02] MEDS ORDERED: FUROSEMIDE 40 MG/4 ML VIAL ONE (11:42)
[2023-01-02] MEDS ORDERED: ALBUTEROL SULFATE 2.5 MG/3 ML NEBU ONE ×2 (11:57→23:20)
[2023-01-02] MEDS ORDERED: ACETYLCYSTEINE 10% 4ML VIAL ONE (11:57)
[2023-01-02] MEDS: ALBUTEROL SULFATE 2.5 MG/3 ML NEBU NEB PRN ×2 (12:01→23:17)
[2023-01-02] MEDS: ACETYLCYSTEINE 10% 4ML VIAL NEB SCH ×3 (12:02→23:17)
[2023-01-02] MEDS ORDERED: MAGNESIUM SULFATE/D5W 200 ML ONE (14:29)
[2023-01-02] MEDS: MAGNESIUM SULFATE/D5W 100 ML IV SCH ×2 (14:30→16:08)
[2023-01-02] MEDS: JEVITY 1.2 1000 ML LIQUID GT PRN (23:05)
[2023-01-02] MEDS: IV NORMAL SALINE 250 ML IV PRN (23:19)
[2023-01-02] MEDS ORDERED: ACETYLCYSTEINE 20% 800 MG/4 ML VIAL ONE (23:20)
[2023-01-03] VITALS (30 sets, daily range): BP systolic 124–163; BP diastolic 57–92; TEMP 97.8–100.9; O2SAT 93–99
[2023-01-03] MEDS: MEROPENEM 1 G in IV NORMAL SALINE 100 ML IV SCH ×3 (01:20→21:57)
[2023-01-03 04:54] LABS: EOSINOPHILS # (AUTO) 0.3 K/uL (0.0-0.7); EOSINOPHILS % (AUTO) 6.2 % (0.0-7.0); HEMATOCRIT 33.7 % (36.7-47.1); HEMOGLOBIN 11.1 g/dL (12.5-16.3); LYMPHOCYTES # (AUTO) 0.6 K/uL (0.8-4.8); LYMPHOCYTES % (AUTO) 13.8 % (20.5-51.5); MEAN CORPUSCULAR HEMOGLOBIN 27.8 uug (23.8-33.4); MEAN CORPUSCULAR HGB CONC 33 g/dL (32.5-36.3); MEAN CORPUSCULAR VOLUME 83.9 fL (73.0-96.2); MONOCYTES # (AUTO) 0.7 K/uL (0.1-1.30); MONOCYTES % (AUTO) 15.6 % (0.0-11.0); NEUTROPHILS # (AUTO) 2.9 K/uL (1.8-8.9); NEUTROPHILS % (AUTO) 63.4 % (38.5-71.5); PLATELET COUNT (AUTO) 140 K/uL (152-348); RED BLOOD CELL COUNT(AUTO) 4.02 MIL/uL (4.06-5.63); RED CELL DISTRIBUTION WIDTH 16.5 % (12.1-16.2); WHITE BLOOD COUNT (AUTO) 4.5 K/uL (3.6-10.2)
[2023-01-03 04:56] LABS: DIFFERENTIAL COMMENT 1
[2023-01-03 05:07] LABS: ALBUMIN 2.2 g/dL (3.4-5.0); BILIRUBIN,TOTAL 0.4 mg/dL (0.2-1.0); CALCIUM 8.4 mg/dL (8.5-10.1); CREATININE 1.3 mg/dL (0.6-1.3); MAGNESIUM 2.6 mg/dL (1.8-2.4); PHOSPHOROUS 4.1 mg/dL (2.5-4.9); POTASSIUM 4.8 mmol/L (3.5-5.1)
[2023-01-03 05:27] LABS: ANISOCYTOSIS 1+; LYMPHOCYTES % (MANUAL) 19 % (20-40); MONOCYTES % (MANUAL) 11 % (2-10); NEUTROPHILS % (MANUAL) 70 % (42-75)
[2023-01-03 05:28] LABS: PLATELET ESTIMATE MODERATELY DECREASED
[2023-01-03] MEDS ORDERED: ACETYLCYSTEINE 10% 4ML VIAL ONE ×2 (07:09→14:24)
[2023-01-03] MEDS ORDERED: ALBUTEROL SULFATE 2.5 MG/3 ML NEBU ONE ×3 (07:09→22:27)
[2023-01-03] MEDS: ALBUTEROL SULFATE 2.5 MG/3 ML NEBU NEB PRN ×3 (07:10→23:02)
[2023-01-03] MEDS: ACETYLCYSTEINE 10% 4ML VIAL NEB SCH ×3 (07:10→23:02)
[2023-01-03] MEDS ORDERED: HEPARIN SODIUM,PORCINE 5,000 UNITS/ML VIAL ONE ×2 (08:43→21:45)
[2023-01-03] MEDS ORDERED: FAMOTIDINE 20 MG TABLET ONE (08:43)
[2023-01-03] MEDS: FAMOTIDINE 20 MG TABLET GT SCH (08:47)
[2023-01-03] MEDS: HEPARIN SODIUM,PORCINE 5,000 UNITS/ML VIAL SQ SCH ×2 (08:48→21:53)
[2023-01-03] MEDS: PROTEIN SUPPLEMENT (PROSTAT) 30 ML LIQUID GT SCH ×2 (08:50→16:30)
[2023-01-03] MEDS ORDERED: FUROSEMIDE 20 MG/2 ML VIAL ONE (09:43)
[2023-01-03] MEDS: FUROSEMIDE 20 MG/2 ML VIAL IV SCH (09:45)
[2023-01-03] MEDS ORDERED: MEROPENEM 1GM/NS 100ML IVPB **ER PYXIS ONLY IV ONE (21:45)
[2023-01-03] MEDS ORDERED: ACETYLCYSTEINE 20% 800 MG/4 ML VIAL ONE (22:27)
[2023-01-04] VITALS (22 sets, daily range): BP systolic 110–161; BP diastolic 41–88; TEMP 98.2–100.1; O2SAT 92–100
[2023-01-04] MEDS ORDERED: ENALAPRILAT DIHYDRATE 1.25 MG/1 ML VIAL IV ONE (06:21)
[2023-01-04] MEDS ORDERED: ACETYLCYSTEINE 10% 4ML VIAL ONE ×2 (07:24→23:36)
[2023-01-04] MEDS ORDERED: ALBUTEROL SULFATE 2.5 MG/3 ML NEBU ONE (07:24)
[2023-01-04] MEDS: ACETYLCYSTEINE 10% 4ML VIAL NEB SCH ×3 (07:44→23:38)
[2023-01-04] MEDS: ALBUTEROL SULFATE 2.5 MG/3 ML NEBU NEB PRN ×3 (07:45→23:39)
[2023-01-04] MEDS ORDERED: FAMOTIDINE 20 MG TABLET ONE (09:11)
[2023-01-04] MEDS ORDERED: FUROSEMIDE 20 MG/2 ML VIAL ONE (09:11)
[2023-01-04] MEDS ORDERED: HEPARIN SODIUM,PORCINE 5,000 UNITS/ML VIAL ONE (09:11)
[2023-01-04] MEDS: MEROPENEM 1 G in IV NORMAL SALINE 100 ML IV SCH ×2 (09:20→21:03)
[2023-01-04] MEDS: FUROSEMIDE 20 MG/2 ML VIAL IV SCH (09:20)
[2023-01-04] MEDS: FAMOTIDINE 20 MG TABLET GT SCH (09:20)
[2023-01-04] MEDS: HEPARIN SODIUM,PORCINE 5,000 UNITS/ML VIAL SQ SCH ×2 (09:21→21:00)
[2023-01-04] MEDS: PROTEIN SUPPLEMENT (PROSTAT) 30 ML LIQUID GT SCH ×2 (09:25→18:39)
[2023-01-04] MEDS: JEVITY 1.2 1000 ML LIQUID GT PRN (18:38)
[2023-01-04] MEDS ORDERED: HEPARIN SODIUM,PORCINE 5,000 UNITS/ML VIAL SQ ONE (21:45)
[2023-01-05] VITALS (11 sets, daily range): BP systolic 124–153; BP diastolic 62–75; TEMP 97.6–99.5; O2SAT 93–99
[2023-01-05 07:02] LABS: BASOPHILS # (AUTO) 0.1 K/UL (0.0-0.2); BASOPHILS % (AUTO) 0.7 % (0.0-2.0); EOSINOPHILS # (AUTO) 0.3 K/uL (0.0-0.7); HEMATOCRIT 36.5 % (36.7-47.1); LYMPHOCYTES # (AUTO) 0.9 K/uL (0.8-4.8); LYMPHOCYTES % (AUTO) 10.5 % (20.5-51.5); MEAN CORPUSCULAR HEMOGLOBIN 27.6 uug (23.8-33.4); MEAN CORPUSCULAR HGB CONC 33 g/dL (32.5-36.3); MEAN CORPUSCULAR VOLUME 84.2 fL (73.0-96.2); MONOCYTES # (AUTO) 0.9 K/uL (0.1-1.30); MONOCYTES % (AUTO) 10.2 % (0.0-11.0); NEUTROPHILS # (AUTO) 6.4 K/uL (1.8-8.9); NEUTROPHILS % (AUTO) 75.6 % (38.5-71.5); PLATELET COUNT (AUTO) 186 K/uL (152-348); RED BLOOD CELL COUNT(AUTO) 4.34 MIL/uL (4.06-5.63); RED CELL DISTRIBUTION WIDTH 15.9 % (12.1-16.2); WHITE BLOOD COUNT (AUTO) 8.5 K/uL (3.6-10.2)
[2023-01-05 07:07] LABS: DIFFERENTIAL COMMENT 1
[2023-01-05 07:11] LABS: CALCIUM 8.5 mg/dL (8.5-10.1); CREATININE 1.3 mg/dL (0.6-1.3); MAGNESIUM 2.6 mg/dL (1.8-2.4); PHOSPHOROUS 4.4 mg/dL (2.5-4.9); POTASSIUM 5.2 mmol/L (3.5-5.1)
[2023-01-05] MEDS: ACETYLCYSTEINE 10% 4ML VIAL NEB SCH ×3 (07:59→23:31)
[2023-01-05] MEDS: ALBUTEROL SULFATE 2.5 MG/3 ML NEBU NEB PRN ×3 (07:59→23:31)
[2023-01-05] MEDS ORDERED: SODIUM POLYSTYRENE SULFONATE 15 G/60 ML LIQUID UDC PO ONE (08:00)
[2023-01-05] MEDS: PROTEIN SUPPLEMENT (PROSTAT) 30 ML LIQUID GT SCH ×2 (08:27→17:50)
[2023-01-05] MEDS: FUROSEMIDE 20 MG/2 ML VIAL IV SCH (08:28)
[2023-01-05 09:16] LABS: ABG HCO3 26.6 mmol/L; ABG PCO2 37.3 mmHg (35.0-45.0); ABG PH 7.471 (7.350-7.450); ABG SITE RIGHT RADIAL; COHb 0.9 % (0.5-1.5); MetHb 0.1 % (0.0-1.5); O2Hb 90.5 % (94.0-97.0); VENT MODE Nasal Cannula
[2023-01-05] MEDS: FAMOTIDINE 20 MG TABLET GT SCH (09:19)
[2023-01-05] MEDS: JEVITY 1.2 1000 ML LIQUID GT PRN (10:33)
[2023-01-05] MEDS: HEPARIN SODIUM,PORCINE 5,000 UNITS/ML VIAL SQ SCH ×2 (10:34→20:46)
[2023-01-05] MEDS ORDERED: HEPARIN SODIUM,PORCINE 5,000 UNITS/ML VIAL ONE (20:43)
[2023-01-06] VITALS (10 sets, daily range): BP systolic 137–155; BP diastolic 67–88; TEMP 97.7–99; O2SAT 95–99
[2023-01-06] MEDS: ACETYLCYSTEINE 10% 4ML VIAL NEB SCH ×3 (07:13→23:53)
[2023-01-06] MEDS: ALBUTEROL SULFATE 2.5 MG/3 ML NEBU NEB PRN ×3 (07:14→23:53)
[2023-01-06 07:24] LABS: BASOPHILS % (AUTO) 0.3 % (0.0-2.0); EOSINOPHILS # (AUTO) 0.1 K/uL (0.0-0.7); EOSINOPHILS % (AUTO) 1.2 % (0.0-7.0); HEMOGLOBIN 12.1 g/dL (12.5-16.3); LYMPHOCYTES # (AUTO) 0.9 K/uL (0.8-4.8); MEAN CORPUSCULAR HEMOGLOBIN 27.5 uug (23.8-33.4); MEAN CORPUSCULAR HGB CONC 33 g/dL (32.5-36.3); MEAN CORPUSCULAR VOLUME 84.2 fL (73.0-96.2); MONOCYTES # (AUTO) 0.9 K/uL (0.1-1.30); MONOCYTES % (AUTO) 7.5 % (0.0-11.0); NEUTROPHILS # (AUTO) 9.6 K/uL (1.8-8.9); PLATELET COUNT (AUTO) 226 K/uL (152-348); RED CELL DISTRIBUTION WIDTH 15.9 % (12.1-16.2); WHITE BLOOD COUNT (AUTO) 11.6 K/uL (3.6-10.2)
[2023-01-06 07:25] LABS: DIFFERENTIAL COMMENT 1
[2023-01-06 07:29] LABS: CALCIUM 8.9 mg/dL (8.5-10.1); CARBON DIOXIDE 33 mmol/L (21-32); CHLORIDE 106 mmol/L (98-107); CREATININE 1.4 mg/dL (0.6-1.3); GLUCOSE 112 mg/dL (74-106); MAGNESIUM 2.7 mg/dL (1.8-2.4); PHOSPHOROUS 4.7 mg/dL (2.5-4.9); POTASSIUM 4.5 mmol/L (3.5-5.1); SODIUM SERUM 143 mmol/L (136-145); UREA NITROGEN, BLOOD 68 mg/dL (7-18)
[2023-01-06] MEDS: FUROSEMIDE 20 MG/2 ML VIAL IV SCH (08:24)
[2023-01-06] MEDS: PROTEIN SUPPLEMENT (PROSTAT) 30 ML LIQUID GT SCH ×2 (08:25→16:57)
[2023-01-06] MEDS: HEPARIN SODIUM,PORCINE 5,000 UNITS/ML VIAL SQ SCH ×2 (09:11→21:05)
[2023-01-06] MEDS: FAMOTIDINE 20 MG TABLET GT SCH (09:12)
[2023-01-07] VITALS (18 sets, daily range): BP systolic 110–163; BP diastolic 73–83; TEMP 98.2–99; O2SAT 94–100
[2023-01-07 07:00] LABS: BASOPHILS % (AUTO) 0.5 % (0.0-2.0); EOSINOPHILS # (AUTO) 0.1 K/uL (0.0-0.7); EOSINOPHILS % (AUTO) 1.2 % (0.0-7.0); HEMATOCRIT 38.4 % (36.7-47.1); HEMOGLOBIN 12.5 g/dL (12.5-16.3); LYMPHOCYTES # (AUTO) 0.9 K/uL (0.8-4.8); LYMPHOCYTES % (AUTO) 9.2 % (20.5-51.5); MEAN CORPUSCULAR HEMOGLOBIN 27.7 uug (23.8-33.4); MEAN CORPUSCULAR HGB CONC 33 g/dL (32.5-36.3); MEAN CORPUSCULAR VOLUME 84.9 fL (73.0-96.2); MONOCYTES # (AUTO) 0.9 K/uL (0.1-1.30); MONOCYTES % (AUTO) 8.9 % (0.0-11.0); NEUTROPHILS # (AUTO) 7.8 K/uL (1.8-8.9); NEUTROPHILS % (AUTO) 80.2 % (38.5-71.5); PLATELET COUNT (AUTO) 256 K/uL (152-348); RED BLOOD CELL COUNT(AUTO) 4.53 MIL/uL (4.06-5.63); RED CELL DISTRIBUTION WIDTH 16.2 % (12.1-16.2); WHITE BLOOD COUNT (AUTO) 9.7 K/uL (3.6-10.2)
[2023-01-07 07:01] LABS: DIFFERENTIAL COMMENT 1
[2023-01-07 07:04] LABS: MAGNESIUM 2.9 mg/dL (1.8-2.4); PHOSPHOROUS 5.3 mg/dL (2.5-4.9)
[2023-01-07 07:19] LABS: CARBON DIOXIDE 30 mmol/L (21-32); CHLORIDE 108 mmol/L (98-107); CREATININE 1.6 mg/dL (0.6-1.3); GLUCOSE 146 mg/dL (74-106); POTASSIUM 5.1 mmol/L (3.5-5.1); SODIUM SERUM 148 mmol/L (136-145)
[2023-01-07] MEDS: ACETYLCYSTEINE 10% 4ML VIAL NEB SCH ×3 (07:51→23:36)
[2023-01-07] MEDS: ALBUTEROL SULFATE 2.5 MG/3 ML NEBU NEB PRN ×2 (07:51→23:37)
[2023-01-07 07:53] LABS: UREA NITROGEN, BLOOD 81 mg/dL (7-18)
[2023-01-07] MEDS: FUROSEMIDE 20 MG/2 ML VIAL IV SCH (09:53)
[2023-01-07] MEDS: FAMOTIDINE 20 MG TABLET GT SCH (09:53)
[2023-01-07] MEDS: HEPARIN SODIUM,PORCINE 5,000 UNITS/ML VIAL SQ SCH ×2 (09:54→21:03)
[2023-01-07] MEDS: CLOTRIMAZOLE 1% CREAM 30 GM TUBE TOP SCH ×2 (09:54→17:10)
[2023-01-07] MEDS: PROTEIN SUPPLEMENT (PROSTAT) 30 ML LIQUID GT SCH ×2 (09:55→17:00)
[2023-01-07] MEDS: ALBUTEROL SULFATE 2.5 MG/3 ML NEBU NEB SCH ×3 (11:29→19:25)
[2023-01-07] MEDS: IPRATROPIUM BROMIDE 0.5 MG/2.5 ML NEBU NEB SCH ×3 (11:29→19:25)
[2023-01-08] VITALS (16 sets, daily range): BP systolic 144–167; BP diastolic 67–80; TEMP 97.8–102.5; O2SAT 94–99
[2023-01-08] MEDS ORDERED: ACETAMINOPHEN 650 MG SUPP.RECT RC ONE (03:20)
[2023-01-08] MEDS: ACETAMINOPHEN 650 MG SUPP.RECT RC PRN (03:21)
[2023-01-08 07:18] LABS: BASOPHILS # (AUTO) 0.1 K/UL (0.0-0.2); EOSINOPHILS % (AUTO) 0.1 % (0.0-7.0); HEMOGLOBIN 12.7 g/dL (12.5-16.3); LYMPHOCYTES # (AUTO) 0.6 K/uL (0.8-4.8); LYMPHOCYTES % (AUTO) 7.4 % (20.5-51.5); MEAN CORPUSCULAR HEMOGLOBIN 27.8 uug (23.8-33.4); MEAN CORPUSCULAR HGB CONC 33 g/dL (32.5-36.3); MEAN CORPUSCULAR VOLUME 85.3 fL (73.0-96.2); MONOCYTES # (AUTO) 0.9 K/uL (0.1-1.30); MONOCYTES % (AUTO) 10.4 % (0.0-11.0); NEUTROPHILS # (AUTO) 6.9 K/uL (1.8-8.9); NEUTROPHILS % (AUTO) 81.1 % (38.5-71.5); PLATELET COUNT (AUTO) 289 K/uL (152-348); RED BLOOD CELL COUNT(AUTO) 4.57 MIL/uL (4.06-5.63); WHITE BLOOD COUNT (AUTO) 8.6 K/uL (3.6-10.2)
[2023-01-08] MEDS: IPRATROPIUM BROMIDE 0.5 MG/2.5 ML NEBU NEB SCH ×4 (07:35→21:55)
[2023-01-08] MEDS: ACETYLCYSTEINE 10% 4ML VIAL NEB SCH ×3 (07:35→22:35)
[2023-01-08] MEDS: ALBUTEROL SULFATE 2.5 MG/3 ML NEBU NEB SCH ×4 (07:35→21:56)
[2023-01-08 07:36] LABS: DIFFERENTIAL COMMENT 1
[2023-01-08 07:41] LABS: CALCIUM 9.2 mg/dL (8.5-10.1); CARBON DIOXIDE 32 mmol/L (21-32); CHLORIDE 109 mmol/L (98-107); CREATININE 1.8 mg/dL (0.6-1.3); GLUCOSE 118 mg/dL (74-106); POTASSIUM 5.4 mmol/L (3.5-5.1); SODIUM SERUM 149 mmol/L (136-145)
[2023-01-08 07:45] LABS: MAGNESIUM 3.3 mg/dL (1.8-2.4); PHOSPHOROUS 5.5 mg/dL (2.5-4.9)
[2023-01-08 08:12] LABS: UREA NITROGEN, BLOOD 100 mg/dL (7-18)
[2023-01-08] MEDS ORDERED: SODIUM POLYSTYRENE SULFONATE 15 G/60 ML LIQUID UDC PO ONE (09:00)
[2023-01-08] MEDS: IV 1/2NS 1000 ML 1,000 ML IV PRN ×2 (09:22→21:02)
[2023-01-08] MEDS: CLOTRIMAZOLE 1% CREAM 30 GM TUBE TOP SCH ×2 (09:39→17:49)
[2023-01-08] MEDS: FAMOTIDINE 20 MG TABLET GT SCH (11:30)
[2023-01-08] MEDS: PROTEIN SUPPLEMENT (PROSTAT) 30 ML LIQUID GT SCH ×2 (11:30→17:49)
[2023-01-08] MEDS: HEPARIN SODIUM,PORCINE 5,000 UNITS/ML VIAL SQ SCH ×3 (11:31→21:04)
[2023-01-08] MEDS: JEVITY 1.2 1000 ML LIQUID GT PRN (11:32)
[2023-01-08 15:15] LABS: CALCIUM 8.7 mg/dL (8.5-10.1); CARBON DIOXIDE 30 mmol/L (21-32); CHLORIDE 111 mmol/L (98-107); CREATININE 1.8 mg/dL (0.6-1.3); GLUCOSE 141 mg/dL (74-106); POTASSIUM 4.8 mmol/L (3.5-5.1); SODIUM SERUM 152 mmol/L (136-145)
[2023-01-08 15:21] LABS: UREA NITROGEN, BLOOD 102 mg/dL (7-18)
[2023-01-08 18:30] LABS: *BILIRUBIN,URIN NEGATIVE (NEGATIVE); *BLOOD, URINE 2+ (NEGATIVE); *CLARITY,URINE CLEAR (CLEAR); *COLOR,URINE YELLOW (YELLOW); *KETONES,URINE NEGATIVE (NEGATIVE); *PROTEIN,URINE 2+ (NEGATIVE); LEUKOCYTE ESTERASE ,URINE NEGATIVE (NEGATIVE); NITRITE, URINE NEGATIVE (NEGATIVE); UGLUCOSE NEGATIVE (NEGATIVE)
[2023-01-08 18:59] LABS: *CREATININE,URINE 82.2 mg/dL (30-125); *SODIUM RNDM,URINE 30 mmol/L (40-220)
[2023-01-08 19:00] LABS: *URINE TOTAL PROTEIN RANDOM < 6.0 mg/dL (<150/24HR)
[2023-01-08 19:15] LABS: BACTERIA,URINE MODERATE /HPF (NONE SEEN); SQUAMOUS EPITHELIAL CELL,UR FEW /HPF (NONE SEEN); WBC,URINE 0-3 /HPF (0-3)
[2023-01-08 19:16] LABS: URIC ACID CRYSTALS,URINE FEW /HPF (NONE SEEN)
[2023-01-08 19:17] LABS: URINE AMORPHOUS URATE FEW /HPF
[2023-01-08] MEDS ORDERED: ACETAMINOPHEN 650 MG SUPP.RECT RC PRN (20:15)
[2023-01-08] MEDS: ACETAMINOPHEN 650 MG/20.3 ML LIQUID UDC GT PRN (20:21)
[2023-01-08] MEDS ORDERED: IV NORMAL SALINE 500 ML BAG IV ONE (21:30)
[2023-01-09] VITALS (15 sets, daily range): BP systolic 122–150; BP diastolic 56–71; TEMP 98.2–100.4; O2SAT 94–100
[2023-01-09 06:58] LABS: BASOPHILS % (AUTO) 0.4 % (0.0-2.0); HEMATOCRIT 36.1 % (36.7-47.1); HEMOGLOBIN 11.9 g/dL (12.5-16.3); LYMPHOCYTES # (AUTO) 0.5 K/uL (0.8-4.8); LYMPHOCYTES % (AUTO) 4.6 % (20.5-51.5); MEAN CORPUSCULAR HGB CONC 33 g/dL (32.5-36.3); MEAN CORPUSCULAR VOLUME 85.2 fL (73.0-96.2); MONOCYTES # (AUTO) 1.1 K/uL (0.1-1.30); MONOCYTES % (AUTO) 10.3 % (0.0-11.0); NEUTROPHILS # (AUTO) 9.3 K/uL (1.8-8.9); NEUTROPHILS % (AUTO) 84.7 % (38.5-71.5); PLATELET COUNT (AUTO) 259 K/uL (152-348); RED BLOOD CELL COUNT(AUTO) 4.24 MIL/uL (4.06-5.63); RED CELL DISTRIBUTION WIDTH 15.8 % (12.1-16.2)
[2023-01-09 07:11] LABS: DIFFERENTIAL COMMENT 1
[2023-01-09 07:13] LABS: CALCIUM 8.4 mg/dL (8.5-10.1); CARBON DIOXIDE 30 mmol/L (21-32); CHLORIDE 112 mmol/L (98-107); CREATININE 1.7 mg/dL (0.6-1.3); GLUCOSE 133 mg/dL (74-106); POTASSIUM 3.9 mmol/L (3.5-5.1); SODIUM SERUM 152 mmol/L (136-145)
[2023-01-09 07:17] LABS: MAGNESIUM 2.8 mg/dL (1.8-2.4); PHOSPHOROUS 5.6 mg/dL (2.5-4.9)
[2023-01-09 07:18] LABS: UREA NITROGEN, BLOOD 97 mg/dL (7-18)
[2023-01-09] MEDS: IPRATROPIUM BROMIDE 0.5 MG/2.5 ML NEBU NEB SCH ×4 (08:45→21:14)
[2023-01-09] MEDS: ALBUTEROL SULFATE 2.5 MG/3 ML NEBU NEB SCH ×4 (08:45→21:14)
[2023-01-09] MEDS: ACETYLCYSTEINE 10% 4ML VIAL NEB SCH ×3 (08:45→21:15)
[2023-01-09] MEDS: HEPARIN SODIUM,PORCINE 5,000 UNITS/ML VIAL SQ SCH ×2 (11:38→21:48)
[2023-01-09] MEDS: FAMOTIDINE 20 MG TABLET GT SCH (11:40)
[2023-01-09] MEDS: CLOTRIMAZOLE 1% CREAM 30 GM TUBE TOP SCH ×2 (11:41→17:00)
[2023-01-09] MEDS: PROTEIN SUPPLEMENT (PROSTAT) 30 ML LIQUID GT SCH ×2 (11:42→17:00)
[2023-01-09] MEDS ORDERED: MEROPENEM 500 MG in IV NORMAL SALINE 50 ML IV SCH (13:00)
[2023-01-09] MEDS: MEROPENEM 500 MG in IV NORMAL SALINE 50 ML IV SCH (14:42)
[2023-01-09] MEDS: JEVITY 1.2 1000 ML LIQUID GT PRN (15:08)
[2023-01-09] MEDS: IV 1/2NS 1000 ML 1,000 ML IV PRN (22:15)
[2023-01-10] VITALS (21 sets, daily range): BP systolic 95–155; BP diastolic 32–61; TEMP 98.2–101.2; O2SAT 92–99
[2023-01-10] MEDS: MEROPENEM 500 MG in IV NORMAL SALINE 50 ML IV SCH (01:53)
[2023-01-10 06:23] LABS: BASOPHILS % (AUTO) 0.7 % (0.0-2.0); EOSINOPHILS % (AUTO) 0.1 % (0.0-7.0); HEMATOCRIT 33.7 % (36.7-47.1); HEMOGLOBIN 10.7 g/dL (12.5-16.3); LYMPHOCYTES # (AUTO) 0.5 K/uL (0.8-4.8); LYMPHOCYTES % (AUTO) 8.8 % (20.5-51.5); MEAN CORPUSCULAR HEMOGLOBIN 27.4 uug (23.8-33.4); MEAN CORPUSCULAR HGB CONC 32 g/dL (32.5-36.3); MEAN CORPUSCULAR VOLUME 85.9 fL (73.0-96.2); MONOCYTES # (AUTO) 0.8 K/uL (0.1-1.30); MONOCYTES % (AUTO) 15.3 % (0.0-11.0); NEUTROPHILS # (AUTO) 4.1 K/uL (1.8-8.9); NEUTROPHILS % (AUTO) 75.1 % (38.5-71.5); PLATELET COUNT (AUTO) 253 K/uL (152-348); RED BLOOD CELL COUNT(AUTO) 3.92 MIL/uL (4.06-5.63); RED CELL DISTRIBUTION WIDTH 15.7 % (12.1-16.2); WHITE BLOOD COUNT (AUTO) 5.5 K/uL (3.6-10.2)
[2023-01-10 06:44] LABS: CALCIUM 8.1 mg/dL (8.5-10.1); CARBON DIOXIDE 32 mmol/L (21-32); CHLORIDE 113 mmol/L (98-107); CREATININE 1.4 mg/dL (0.6-1.3); GLUCOSE 148 mg/dL (74-106); POTASSIUM 3.7 mmol/L (3.5-5.1); SODIUM SERUM 151 mmol/L (136-145)
[2023-01-10 06:45] LABS: MAGNESIUM 2.7 mg/dL (1.8-2.4)
[2023-01-10 06:46] LABS: DIFFERENTIAL COMMENT 1
[2023-01-10 07:15] LABS: UREA NITROGEN, BLOOD 87 mg/dL (7-18)
[2023-01-10] MEDS: ALBUTEROL SULFATE 2.5 MG/3 ML NEBU NEB SCH ×4 (07:50→19:30)
[2023-01-10] MEDS: IPRATROPIUM BROMIDE 0.5 MG/2.5 ML NEBU NEB SCH ×4 (07:50→19:30)
[2023-01-10] MEDS: ACETYLCYSTEINE 10% 4ML VIAL NEB SCH ×3 (07:51→23:30)
[2023-01-10] MEDS: FAMOTIDINE 20 MG TABLET GT SCH (09:09)
[2023-01-10] MEDS: HEPARIN SODIUM,PORCINE 5,000 UNITS/ML VIAL SQ SCH ×2 (09:10→21:38)
[2023-01-10] MEDS: CLOTRIMAZOLE 1% CREAM 30 GM TUBE TOP SCH ×2 (09:15→17:00)
[2023-01-10] MEDS: PROTEIN SUPPLEMENT (PROSTAT) 30 ML LIQUID GT SCH ×2 (09:15→17:00)
[2023-01-10 09:24] LABS: BAND % (MANUAL) 2 % (0-10); LYMPHOCYTES % (MANUAL) 13 % (20-40); MONOCYTES % (MANUAL) 16 % (2-10); NEUTROPHILS % (MANUAL) 69 % (42-75); PLATELET ESTIMATE ADEQUATE
[2023-01-10] MEDS ORDERED: ETOMIDATE 20 MG/10 ML VIAL ONE (12:30)
[2023-01-10] MEDS ORDERED: SUCCINYLCHOLINE CHLORIDE 200 MG/10 ML VIAL ONE (12:30)
[2023-01-10] MEDS: IV 1/2NS 1000 ML 1,000 ML IV PRN ×2 (12:56→23:15)
[2023-01-10] MEDS ORDERED: PROPOFOL 100 ML ONE (13:18)
[2023-01-10] MEDS: MEROPENEM 1 G in IV NORMAL SALINE 100 ML IV SCH (14:22)
[2023-01-10 14:58] LABS: ABG BASE EXCESS -4.2 mmol/L; ABG HCO3 28.2 mmol/L; ABG PCO2 98.6 mmHg (35.0-45.0); ABG PH 7.074 (7.350-7.450); ABG PO2 100.8 mmHg (75.0-100.0); ABG SITE LEFT RADIAL; ABG TOTAL HEMOGLOBIN 12.9 G/dL (13.5-18.0); COHb 0.2 % (0.5-1.5); MetHb 0.4 % (0.0-1.5)
[2023-01-10 14:58] LABS: ABG BASE EXCESS 1.4 mmol/L; ABG HCO3 27.6 mmol/L; ABG PCO2 50.7 mmHg (35.0-45.0); ABG PH 7.354 (7.350-7.450); ABG PO2 38.5 mmHg (75.0-100.0); ABG SITE LEFT RADIAL; ABG TOTAL HEMOGLOBIN 12.4 G/dL (13.5-18.0); COHb 0.2 % (0.5-1.5); MetHb 0.3 % (0.0-1.5); VENT MODE VENT - A/C; VT, ABG 450 mL
[2023-01-10] MEDS ORDERED: DILTIAZEM HCL 25 MG IV IV ONE (15:15)
[2023-01-10] MEDS ORDERED: [UNRECOGNIZED DRUG - OTHER] IV ONE (15:35)
[2023-01-10] MEDS ORDERED: DILTIAZEM HCL 25 MG IV ONE (15:40)
[2023-01-10] MEDS ORDERED: IPRATROPIUM BROMIDE 0.5 MG/2.5 ML NEBU ONE (16:22)
[2023-01-10] MEDS ORDERED: ACETYLCYSTEINE 10% 4ML VIAL ONE (16:22)
[2023-01-10] MEDS: PROPOFOL 100 ML IV PRN ×2 (16:24→21:02)
[2023-01-10] MEDS: ACETAMINOPHEN 650 MG/20.3 ML LIQUID UDC GT PRN (21:02)
[2023-01-10] MEDS: JEVITY 1.2 1000 ML LIQUID GT PRN (22:00)
[2023-01-11] VITALS (34 sets, daily range): BP systolic 70–126; BP diastolic 14–75; TEMP 98–101; O2SAT 92–100
[2023-01-11] LABS: *BILIRUBIN,URIN NEGATIVE (NEGATIVE); *BLOOD, URINE 2+ (NEGATIVE); *CLARITY,URINE CLEAR (CLEAR); *COLOR,URINE YELLOW (YELLOW); *KETONES,URINE NEGATIVE (NEGATIVE); *PROTEIN,URINE 1+ (NEGATIVE); *UROBILINOGEN,URINE 0.2 E.U./dl (NORMAL); LEUKOCYTE ESTERASE ,URINE NEGATIVE (NEGATIVE); NITRITE, URINE NEGATIVE (NEGATIVE); UGLUCOSE NEGATIVE (NEGATIVE)
[2023-01-11 01:00] LABS: BACTERIA,URINE FEW /HPF (NONE SEEN); SQUAMOUS EPITHELIAL CELL,UR NONE SEEN /HPF (NONE SEEN); WBC,URINE 0-3 /HPF (0-3)
[2023-01-11] MEDS ORDERED: NOREPINEPHRINE BITARTRATE 4 MG/4 ML VIAL IV ONE (01:21)
[2023-01-11] MEDS ORDERED: NOREPINEPHRINE BITARTRATE 8 MG in IV NORMAL SALINE 242 ML IV PRN (01:30)
[2023-01-11] MEDS: MEROPENEM 1 G in IV NORMAL SALINE 100 ML IV SCH ×2 (01:35→15:01)
[2023-01-11] MEDS: NOREPINEPHRINE BITARTRATE 8 MG in IV NORMAL SALINE 242 ML IV PRN (01:40)
[2023-01-11 04:47] LABS: BASOPHILS % (AUTO) 0.7 % (0.0-2.0); EOSINOPHILS # (AUTO) 0.1 K/uL (0.0-0.7); EOSINOPHILS % (AUTO) 1.4 % (0.0-7.0); HEMOGLOBIN 9.8 g/dL (12.5-16.3); LYMPHOCYTES # (AUTO) 0.5 K/uL (0.8-4.8); LYMPHOCYTES % (AUTO) 11.2 % (20.5-51.5); MEAN CORPUSCULAR HGB CONC 33 g/dL (32.5-36.3); MONOCYTES # (AUTO) 0.6 K/uL (0.1-1.30); MONOCYTES % (AUTO) 14.6 % (0.0-11.0); NEUTROPHILS # (AUTO) 3.2 K/uL (1.8-8.9); NEUTROPHILS % (AUTO) 72.1 % (38.5-71.5); PLATELET COUNT (AUTO) 230 K/uL (152-348); RED BLOOD CELL COUNT(AUTO) 3.49 MIL/uL (4.06-5.63); RED CELL DISTRIBUTION WIDTH 16.4 % (12.1-16.2); WHITE BLOOD COUNT (AUTO) 4.4 K/uL (3.6-10.2)
[2023-01-11 04:58] LABS: DIFFERENTIAL COMMENT 1
[2023-01-11 05:01] LABS: CALCIUM 7.6 mg/dL (8.5-10.1); CARBON DIOXIDE 27 mmol/L (21-32); CHLORIDE 110 mmol/L (98-107); CREATININE 1.8 mg/dL (0.6-1.3); GLUCOSE 179 mg/dL (74-106); POTASSIUM 3.7 mmol/L (3.5-5.1); SODIUM SERUM 146 mmol/L (136-145)
[2023-01-11 05:04] LABS: MAGNESIUM 2.5 mg/dL (1.8-2.4); PHOSPHOROUS 3.6 mg/dL (2.5-4.9)
[2023-01-11 05:13] LABS: UREA NITROGEN, BLOOD 97 mg/dL (7-18)
[2023-01-11] MEDS: PROPOFOL 100 ML IV PRN ×3 (05:42→19:36)
[2023-01-11] MEDS: FAMOTIDINE 20 MG TABLET GT SCH (08:01)
[2023-01-11] MEDS: HEPARIN SODIUM,PORCINE 5,000 UNITS/ML VIAL SQ SCH ×2 (08:04→20:10)
[2023-01-11] MEDS: PROTEIN SUPPLEMENT (PROSTAT) 30 ML LIQUID GT SCH ×2 (08:05→17:38)
[2023-01-11] MEDS: ALBUTEROL SULFATE 2.5 MG/3 ML NEBU NEB SCH ×4 (08:46→19:27)
[2023-01-11] MEDS: IPRATROPIUM BROMIDE 0.5 MG/2.5 ML NEBU NEB SCH ×4 (08:46→19:27)
[2023-01-11] MEDS: ACETYLCYSTEINE 10% 4ML VIAL NEB SCH ×3 (08:48→23:39)
[2023-01-11 08:58] LABS: ABG BASE EXCESS -1.2 mmol/L; ABG HCO3 23.5 mmol/L; ABG PCO2 39.3 mmHg (35.0-45.0); ABG PH 7.394 (7.350-7.450); ABG PO2 173.7 mmHg (75.0-100.0); ABG SITE RIGHT RADIAL; ABG TOTAL HEMOGLOBIN 11.2 G/dL (13.5-18.0); COHb 0.3 % (0.5-1.5); MetHb 0.2 % (0.0-1.5); O2Hb 98.6 % (94.0-97.0); VENT MODE VENT - A/C; VT, ABG 450 mL
[2023-01-11] MEDS: CLOTRIMAZOLE 1% CREAM 30 GM TUBE TOP SCH ×2 (09:02→17:38)
[2023-01-11] MEDS: IV 1/2NS 1000 ML 1,000 ML IV PRN ×2 (09:47→19:36)
[2023-01-11] MEDS: ACETAMINOPHEN 650 MG/20.3 ML LIQUID UDC GT PRN (17:37)
[2023-01-11] MEDS: ALBUTEROL SULFATE 2.5 MG/3 ML NEBU NEB PRN (23:39)
[2023-01-12] VITALS (24 sets, daily range): BP systolic 93–134; BP diastolic 45–82; TEMP 98–101.6; O2SAT 99–100
[2023-01-12] MEDS: PROPOFOL 100 ML IV PRN ×5 (01:06→23:03)
[2023-01-12] MEDS: MEROPENEM 1 G in IV NORMAL SALINE 100 ML IV SCH ×2 (01:07→13:29)
[2023-01-12 04:50] LABS: BASOPHILS % (AUTO) 0.8 % (0.0-2.0); EOSINOPHILS # (AUTO) 0.4 K/uL (0.0-0.7); EOSINOPHILS % (AUTO) 8.7 % (0.0-7.0); HEMATOCRIT 30.5 % (36.7-47.1); HEMOGLOBIN 10.1 g/dL (12.5-16.3); LYMPHOCYTES # (AUTO) 0.3 K/uL (0.8-4.8); LYMPHOCYTES % (AUTO) 7.5 % (20.5-51.5); MEAN CORPUSCULAR HEMOGLOBIN 28.1 uug (23.8-33.4); MEAN CORPUSCULAR HGB CONC 33 g/dL (32.5-36.3); MEAN CORPUSCULAR VOLUME 84.5 fL (73.0-96.2); MONOCYTES # (AUTO) 0.5 K/uL (0.1-1.30); MONOCYTES % (AUTO) 11.8 % (0.0-11.0); NEUTROPHILS # (AUTO) 3.3 K/uL (1.8-8.9); NEUTROPHILS % (AUTO) 71.2 % (38.5-71.5); PLATELET COUNT (AUTO) 235 K/uL (152-348); RED BLOOD CELL COUNT(AUTO) 3.61 MIL/uL (4.06-5.63); RED CELL DISTRIBUTION WIDTH 16.1 % (12.1-16.2); WHITE BLOOD COUNT (AUTO) 4.6 K/uL (3.6-10.2)
[2023-01-12] MEDS: IV 1/2NS 1000 ML 1,000 ML IV PRN (04:58)
[2023-01-12 05:04] LABS: DIFFERENTIAL COMMENT 1
[2023-01-12 05:09] LABS: CALCIUM 7.8 mg/dL (8.5-10.1); CARBON DIOXIDE 25 mmol/L (21-32); CHLORIDE 108 mmol/L (98-107); CREATININE 1.5 mg/dL (0.6-1.3); GLUCOSE 119 mg/dL (74-106); MAGNESIUM 2.3 mg/dL (1.8-2.4); POTASSIUM 4.1 mmol/L (3.5-5.1); SODIUM SERUM 143 mmol/L (136-145)
[2023-01-12 05:59] LABS: UREA NITROGEN, BLOOD 89 mg/dL (7-18)
[2023-01-12] MEDS: IPRATROPIUM BROMIDE 0.5 MG/2.5 ML NEBU NEB SCH ×4 (07:26→19:17)
[2023-01-12] MEDS: ALBUTEROL SULFATE 2.5 MG/3 ML NEBU NEB SCH ×4 (07:26→19:18)
[2023-01-12] MEDS: ACETYLCYSTEINE 10% 4ML VIAL NEB SCH ×3 (07:27→23:22)
[2023-01-12] MEDS: FAMOTIDINE 20 MG TABLET GT SCH (08:56)
[2023-01-12] MEDS: HEPARIN SODIUM,PORCINE 5,000 UNITS/ML VIAL SQ SCH ×2 (09:02→20:34)
[2023-01-12 10:21] LABS: ABG BASE EXCESS -0.2 mmol/L; ABG HCO3 24.1 mmol/L; ABG PCO2 37.6 mmHg (35.0-45.0); ABG PH 7.424 (7.350-7.450); ABG PO2 71.9 mmHg (75.0-100.0); ABG SITE LEFT RADIAL; ABG TOTAL HEMOGLOBIN 10.1 G/dL (13.5-18.0); COHb 0.3 % (0.5-1.5); MetHb 0.3 % (0.0-1.5); O2Hb 94.7 % (94.0-97.0); VENT MODE VENT - A/C; VT, ABG 450 mL
[2023-01-12] MEDS: ACETAMINOPHEN 650 MG/20.3 ML LIQUID UDC GT PRN (20:33)
[2023-01-12] MEDS: PROTEIN SUPPLEMENT (PROSTAT) 30 ML LIQUID GT SCH (20:54)
[2023-01-12] MEDS: CLOTRIMAZOLE 1% CREAM 30 GM TUBE TOP SCH (20:54)
[2023-01-12] MEDS: ALBUTEROL SULFATE 2.5 MG/3 ML NEBU NEB PRN (23:22)
[2023-01-13] VITALS (21 sets, daily range): BP systolic 91–139; BP diastolic 46–73; TEMP 99.6–102.4; O2SAT 96–100
[2023-01-13] MEDS: IV 1/2NS 1000 ML 1,000 ML IV PRN ×2 (01:08→15:21)
[2023-01-13] MEDS: MEROPENEM 1 G in IV NORMAL SALINE 100 ML IV SCH ×2 (01:34→15:17)
[2023-01-13] MEDS: PROPOFOL 100 ML IV PRN ×5 (03:40→23:09)
[2023-01-13 05:11] LABS: BASOPHILS # (AUTO) 0.1 K/UL (0.0-0.2); BASOPHILS % (AUTO) 1.5 % (0.0-2.0); EOSINOPHILS # (AUTO) 0.6 K/uL (0.0-0.7); EOSINOPHILS % (AUTO) 16.5 % (0.0-7.0); HEMATOCRIT 27.9 % (36.7-47.1); HEMOGLOBIN 9.1 g/dL (12.5-16.3); LYMPHOCYTES # (AUTO) 0.4 K/uL (0.8-4.8); LYMPHOCYTES % (AUTO) 10.7 % (20.5-51.5); MEAN CORPUSCULAR HEMOGLOBIN 27.6 uug (23.8-33.4); MEAN CORPUSCULAR HGB CONC 33 g/dL (32.5-36.3); MEAN CORPUSCULAR VOLUME 84.9 fL (73.0-96.2); MONOCYTES # (AUTO) 0.4 K/uL (0.1-1.30); MONOCYTES % (AUTO) 12.7 % (0.0-11.0); NEUTROPHILS % (AUTO) 58.6 % (38.5-71.5); PLATELET COUNT (AUTO) 209 K/uL (152-348); RED BLOOD CELL COUNT(AUTO) 3.29 MIL/uL (4.06-5.63); RED CELL DISTRIBUTION WIDTH 15.9 % (12.1-16.2); WHITE BLOOD COUNT (AUTO) 3.5 K/uL (3.6-10.2)
[2023-01-13 05:29] LABS: DIFFERENTIAL COMMENT 1
[2023-01-13 05:36] LABS: ALANINE AMINOTRANSFERASE 32 U/L (16-63); ALBUMIN 1.6 g/dL (3.4-5.0); ALKALINE PHOSPHATASE 62 U/L (50-136); ASPARTATE AMINOTRANSFERASE 24 U/L (15-37); BILIRUBIN,TOTAL 0.2 mg/dL (0.2-1.0); CALCIUM 7.5 mg/dL (8.5-10.1); CARBON DIOXIDE 24 mmol/L (21-32); CHLORIDE 109 mmol/L (98-107); CREATININE 1.2 mg/dL (0.6-1.3); GLUCOSE 105 mg/dL (74-106); MAGNESIUM 2.2 mg/dL (1.8-2.4); PHOSPHOROUS 4.2 mg/dL (2.5-4.9); POTASSIUM 4.4 mmol/L (3.5-5.1); SODIUM SERUM 143 mmol/L (136-145); TOTAL PROTEIN, SERUM 5.4 g/dL (6.4-8.2); UREA NITROGEN, BLOOD 68 mg/dL (7-18)
[2023-01-13] MEDS: ALBUTEROL SULFATE 2.5 MG/3 ML NEBU NEB SCH ×4 (07:06→20:49)
[2023-01-13] MEDS: ACETYLCYSTEINE 10% 4ML VIAL NEB SCH ×3 (07:06→20:51)
[2023-01-13] MEDS: IPRATROPIUM BROMIDE 0.5 MG/2.5 ML NEBU NEB SCH ×4 (07:06→20:49)
[2023-01-13] MEDS: FAMOTIDINE 20 MG TABLET GT SCH (09:14)
[2023-01-13] MEDS: ACETAMINOPHEN 650 MG/20.3 ML LIQUID UDC GT PRN ×2 (09:14→20:15)
[2023-01-13] MEDS: HEPARIN SODIUM,PORCINE 5,000 UNITS/ML VIAL SQ SCH ×2 (09:15→20:17)
[2023-01-13] MEDS: PROTEIN SUPPLEMENT (PROSTAT) 30 ML LIQUID GT SCH ×2 (09:16→18:20)
[2023-01-13 09:17] LABS: ABG HCO3 23.3 mmol/L; ABG PCO2 37.1 mmHg (35.0-45.0); ABG PH 7.415 (7.350-7.450); ABG PO2 67.4 mmHg (75.0-100.0); ABG SITE RIGHT RADIAL; ABG TOTAL HEMOGLOBIN 11.4 G/dL (13.5-18.0); MetHb 0.2 % (0.0-1.5); O2Hb 94.2 % (94.0-97.0); VENT MODE VENT - A/C; VT, ABG 450 mL
[2023-01-13] MEDS: CLOTRIMAZOLE 1% CREAM 30 GM TUBE TOP SCH ×2 (09:17→18:20)
[2023-01-14] VITALS (23 sets, daily range): BP systolic 112–147; BP diastolic 51–99; TEMP 98.1–100.5; O2SAT 98–100
[2023-01-14] MEDS: IV 1/2NS 1000 ML 1,000 ML IV PRN ×3 (01:49→22:28)
[2023-01-14] MEDS: MEROPENEM 1 G in IV NORMAL SALINE 100 ML IV SCH ×3 (01:50→21:07)
[2023-01-14] MEDS: PROPOFOL 100 ML IV PRN ×4 (04:12→23:10)
[2023-01-14 04:48] LABS: BASOPHILS % (AUTO) 0.8 % (0.0-2.0); EOSINOPHILS # (AUTO) 0.6 K/uL (0.0-0.7); EOSINOPHILS % (AUTO) 12.6 % (0.0-7.0); HEMATOCRIT 30.2 % (36.7-47.1); HEMOGLOBIN 9.8 g/dL (12.5-16.3); LYMPHOCYTES # (AUTO) 0.7 K/uL (0.8-4.8); MEAN CORPUSCULAR HEMOGLOBIN 27.4 uug (23.8-33.4); MEAN CORPUSCULAR HGB CONC 32 g/dL (32.5-36.3); MEAN CORPUSCULAR VOLUME 84.8 fL (73.0-96.2); MONOCYTES # (AUTO) 0.7 K/uL (0.1-1.30); MONOCYTES % (AUTO) 14.8 % (0.0-11.0); NEUTROPHILS # (AUTO) 2.6 K/uL (1.8-8.9); NEUTROPHILS % (AUTO) 56.8 % (38.5-71.5); PLATELET COUNT (AUTO) 207 K/uL (152-348); RED BLOOD CELL COUNT(AUTO) 3.56 MIL/uL (4.06-5.63); RED CELL DISTRIBUTION WIDTH 16.7 % (12.1-16.2); WHITE BLOOD COUNT (AUTO) 4.5 K/uL (3.6-10.2)
[2023-01-14 04:55] LABS: DIFFERENTIAL COMMENT 1
[2023-01-14 04:59] LABS: CALCIUM 7.7 mg/dL (8.5-10.1); CARBON DIOXIDE 23 mmol/L (21-32); CHLORIDE 109 mmol/L (98-107); CREATININE 1.1 mg/dL (0.6-1.3); GLUCOSE 103 mg/dL (74-106); PHOSPHOROUS 4.5 mg/dL (2.5-4.9); POTASSIUM 4.5 mmol/L (3.5-5.1); SODIUM SERUM 143 mmol/L (136-145); TRIGLYCERIDES 124 MG/DL (30-150); UREA NITROGEN, BLOOD 56 mg/dL (7-18)
[2023-01-14 06:27] LABS: ABG BASE EXCESS -4.3 mmol/L; ABG HCO3 19.2 mmol/L; ABG PCO2 29.7 mmHg (35.0-45.0); ABG PH 7.428 (7.350-7.450); ABG PO2 75.4 mmHg (75.0-100.0); ABG SITE RIGHT RADIAL; ABG TOTAL HEMOGLOBIN 10.1 G/dL (13.5-18.0); COHb 0.2 % (0.5-1.5); MetHb 0.5 % (0.0-1.5); O2Hb 94.2 % (94.0-97.0); VENT MODE VENT - A/C; VT, ABG 450 mL
[2023-01-14] MEDS: ACETYLCYSTEINE 10% 4ML VIAL NEB SCH ×3 (07:18→21:15)
[2023-01-14] MEDS: IPRATROPIUM BROMIDE 0.5 MG/2.5 ML NEBU NEB SCH ×4 (07:19→21:14)
[2023-01-14] MEDS: ALBUTEROL SULFATE 2.5 MG/3 ML NEBU NEB SCH ×4 (07:19→21:14)
[2023-01-14] MEDS: FAMOTIDINE 20 MG TABLET GT SCH (09:00)
[2023-01-14] MEDS: PROTEIN SUPPLEMENT (PROSTAT) 30 ML LIQUID GT SCH ×2 (09:00→16:46)
[2023-01-14] MEDS: CLOTRIMAZOLE 1% CREAM 30 GM TUBE TOP SCH ×3 (09:10→16:46)
[2023-01-14] MEDS: HEPARIN SODIUM,PORCINE 5,000 UNITS/ML VIAL SQ SCH ×2 (09:12→20:35)
[2023-01-14] MEDS: ACETAMINOPHEN 650 MG/20.3 ML LIQUID UDC GT PRN (09:47)
[2023-01-14] MEDS ORDERED: CEFAZOLIN 1 G VIAL ONE (12:29)
[2023-01-14] MEDS ORDERED: PROPOFOL 200 MG/20 ML BOTTLE ONE (12:29)
[2023-01-14] MEDS ORDERED: LIDOCAINE-MPF 2% 5 ML VIAL ONE (12:29)
[2023-01-14] MEDS: IV NORMAL SALINE 250 ML IV PRN (22:28)
[2023-01-15] VITALS (25 sets, daily range): BP systolic 111–181; BP diastolic 47–91; TEMP 98.6–100.5; O2SAT 95–100
[2023-01-15 05:02] LABS: BASOPHILS % (AUTO) 0.7 % (0.0-2.0); EOSINOPHILS # (AUTO) 0.5 K/uL (0.0-0.7); EOSINOPHILS % (AUTO) 13.6 % (0.0-7.0); HEMATOCRIT 28.9 % (36.7-47.1); HEMOGLOBIN 9.6 g/dL (12.5-16.3); LYMPHOCYTES # (AUTO) 0.7 K/uL (0.8-4.8); MEAN CORPUSCULAR HEMOGLOBIN 27.6 uug (23.8-33.4); MEAN CORPUSCULAR HGB CONC 33 g/dL (32.5-36.3); MEAN CORPUSCULAR VOLUME 83.2 fL (73.0-96.2); MONOCYTES # (AUTO) 0.7 K/uL (0.1-1.30); MONOCYTES % (AUTO) 17.4 % (0.0-11.0); NEUTROPHILS % (AUTO) 50.3 % (38.5-71.5); PLATELET COUNT (AUTO) 188 K/uL (152-348); RED BLOOD CELL COUNT(AUTO) 3.47 MIL/uL (4.06-5.63); WHITE BLOOD COUNT (AUTO) 3.9 K/uL (3.6-10.2)
[2023-01-15] MEDS: MEROPENEM 1 G in IV NORMAL SALINE 100 ML IV SCH ×3 (05:04→21:08)
[2023-01-15 05:24] LABS: DIFFERENTIAL COMMENT 1
[2023-01-15 05:37] LABS: CALCIUM 7.5 mg/dL (8.5-10.1); CARBON DIOXIDE 22 mmol/L (21-32); CHLORIDE 110 mmol/L (98-107); CREATININE 0.9 mg/dL (0.6-1.3); GLUCOSE 87 mg/dL (74-106); MAGNESIUM 1.7 mg/dL (1.8-2.4); PHOSPHOROUS 3.2 mg/dL (2.5-4.9); POTASSIUM 4.2 mmol/L (3.5-5.1); SODIUM SERUM 143 mmol/L (136-145); UREA NITROGEN, BLOOD 40 mg/dL (7-18)
[2023-01-15 05:42] LABS: BAND % (MANUAL) 3 % (0-10); EOSINOPHILS % (MANUAL) 10 % (0-8); LYMPHOCYTES % (MANUAL) 20 % (20-40); MONOCYTES % (MANUAL) 15 % (2-10)
[2023-01-15 05:43] LABS: NEUTROPHILS % (MANUAL) 52 % (42-75); PLATELET ESTIMATE ADEQUATE
[2023-01-15] MEDS: PROPOFOL 100 ML IV PRN ×3 (07:29→21:00)
[2023-01-15] MEDS: ACETYLCYSTEINE 10% 4ML VIAL NEB SCH ×3 (07:57→23:35)
[2023-01-15] MEDS: ALBUTEROL SULFATE 2.5 MG/3 ML NEBU NEB SCH ×4 (07:57→19:42)
[2023-01-15] MEDS: IPRATROPIUM BROMIDE 0.5 MG/2.5 ML NEBU NEB SCH ×4 (07:57→19:43)
[2023-01-15 07:59] LABS: ABG BASE EXCESS -3.7 mmol/L; ABG PCO2 31.5 mmHg (35.0-45.0); ABG PH 7.421 (7.350-7.450); ABG PO2 75.8 mmHg (75.0-100.0); ABG SITE LEFT RADIAL; ABG TOTAL HEMOGLOBIN 10.4 G/dL (13.5-18.0); COHb 0.3 % (0.5-1.5); MetHb 0.3 % (0.0-1.5); O2Hb 94.5 % (94.0-97.0); VENT MODE VENT - A/C; VT, ABG 450 mL
[2023-01-15] MEDS: JEVITY 1.2 1000 ML LIQUID GT PRN (08:00)
[2023-01-15] MEDS: FAMOTIDINE 20 MG TABLET GT SCH (08:15)
[2023-01-15] MEDS: PROTEIN SUPPLEMENT (PROSTAT) 30 ML LIQUID GT SCH ×2 (08:16→17:17)
[2023-01-15] MEDS: HEPARIN SODIUM,PORCINE 5,000 UNITS/ML VIAL SQ SCH (08:23)
[2023-01-15] MEDS: CLOTRIMAZOLE 1% CREAM 30 GM TUBE TOP SCH ×2 (08:58→17:17)
[2023-01-15] MEDS: VANCOMYCIN FOR PO/GT/NG USE GT SCH ×3 (12:25→23:15)
[2023-01-15] MEDS: MAGNESIUM SULFATE/D5W 100 ML IV SCH ×2 (13:05→14:00)
[2023-01-15] MEDS: REMEDY ESSENTIAL ZINC PASTE 113 GM TP PRN (17:48)
[2023-01-15] MEDS: ENOXAPARIN SODIUM 40 MG/0.4 ML DISP.SYRIN SQ SCH (21:07)
[2023-01-16] VITALS (57 sets, daily range): BP systolic 80–208; BP diastolic 46–143; TEMP 98–100.9; O2SAT 91–100
[2023-01-16] MEDS: ACETAMINOPHEN 650 MG/20.3 ML LIQUID UDC GT PRN (00:27)
[2023-01-16] MEDS: PROPOFOL 100 ML IV PRN ×3 (04:21→16:39)
[2023-01-16 04:29] LABS: BASOPHILS % (AUTO) 0.6 % (0.0-2.0); EOSINOPHILS # (AUTO) 0.6 K/uL (0.0-0.7); EOSINOPHILS % (AUTO) 14.5 % (0.0-7.0); HEMATOCRIT 30.3 % (36.7-47.1); HEMOGLOBIN 9.9 g/dL (12.5-16.3); LYMPHOCYTES # (AUTO) 0.8 K/uL (0.8-4.8); LYMPHOCYTES % (AUTO) 17.6 % (20.5-51.5); MEAN CORPUSCULAR HEMOGLOBIN 27.4 uug (23.8-33.4); MEAN CORPUSCULAR HGB CONC 33 g/dL (32.5-36.3); MONOCYTES # (AUTO) 0.7 K/uL (0.1-1.30); MONOCYTES % (AUTO) 16.3 % (0.0-11.0); NEUTROPHILS # (AUTO) 2.2 K/uL (1.8-8.9); PLATELET COUNT (AUTO) 208 K/uL (152-348); RED BLOOD CELL COUNT(AUTO) 3.61 MIL/uL (4.06-5.63); RED CELL DISTRIBUTION WIDTH 15.8 % (12.1-16.2); WHITE BLOOD COUNT (AUTO) 4.4 K/uL (3.6-10.2)
[2023-01-16 04:33] LABS: DIFFERENTIAL COMMENT 1
[2023-01-16 04:41] LABS: CALCIUM 7.7 mg/dL (8.5-10.1); CREATININE 0.9 mg/dL (0.6-1.3); MAGNESIUM 2.1 mg/dL (1.8-2.4); PHOSPHOROUS 3.7 mg/dL (2.5-4.9); POTASSIUM 4.2 mmol/L (3.5-5.1)
[2023-01-16 04:54] LABS: ANISOCYTOSIS 1+; EOSINOPHILS % (MANUAL) 8 % (0-8); LYMPHOCYTES % (MANUAL) 16 % (20-40); MONOCYTES % (MANUAL) 9 % (2-10); NEUTROPHILS % (MANUAL) 67 % (42-75); PLATELET ESTIMATE ADEQUATE
[2023-01-16] MEDS: MEROPENEM 1 G in IV NORMAL SALINE 100 ML IV SCH ×3 (05:06→21:07)
[2023-01-16] MEDS: VANCOMYCIN FOR PO/GT/NG USE GT SCH ×4 (05:06→23:51)
[2023-01-16] MEDS ORDERED: NOREPINEPHRINE BITARTRATE 4 MG/4 ML VIAL IV ONE (05:48)
[2023-01-16] MEDS: NOREPINEPHRINE BITARTRATE 8 MG in IV NORMAL SALINE 242 ML IV PRN (06:07)
[2023-01-16] MEDS: ALBUTEROL SULFATE 2.5 MG/3 ML NEBU NEB SCH ×4 (07:04→19:03)
[2023-01-16] MEDS: ACETYLCYSTEINE 10% 4ML VIAL NEB SCH ×3 (07:04→23:12)
[2023-01-16] MEDS: IPRATROPIUM BROMIDE 0.5 MG/2.5 ML NEBU NEB SCH ×4 (07:04→19:03)
[2023-01-16] MEDS: FAMOTIDINE 20 MG TABLET GT SCH (09:18)
[2023-01-16] MEDS: CLOTRIMAZOLE 1% CREAM 30 GM TUBE TOP SCH ×2 (09:19→17:21)
[2023-01-16] MEDS: PROTEIN SUPPLEMENT (PROSTAT) 30 ML LIQUID GT SCH ×2 (09:21→17:22)
[2023-01-16] MEDS ORDERED: PHENYLEPHRINE IV 50 MG in IV NORMAL SALINE 245 ML IV PRN ×2 (11:00→11:30)
[2023-01-16] MEDS: ENOXAPARIN SODIUM 40 MG/0.4 ML DISP.SYRIN SQ SCH (20:49)
[2023-01-17] VITALS (24 sets, daily range): BP systolic 90–152; BP diastolic 43–79; TEMP 98.1–98.8; O2SAT 95–99
[2023-01-17] MEDS: PROPOFOL 100 ML IV PRN ×3 (00:10→14:32)
[2023-01-17 04:43] LABS: BASOPHILS # (AUTO) 0.1 K/UL (0.0-0.2); EOSINOPHILS # (AUTO) 0.8 K/uL (0.0-0.7); EOSINOPHILS % (AUTO) 15.2 % (0.0-7.0); HEMATOCRIT 32.2 % (36.7-47.1); HEMOGLOBIN 10.6 g/dL (12.5-16.3); LYMPHOCYTES # (AUTO) 0.9 K/uL (0.8-4.8); LYMPHOCYTES % (AUTO) 17.5 % (20.5-51.5); MEAN CORPUSCULAR HEMOGLOBIN 27.3 uug (23.8-33.4); MEAN CORPUSCULAR HGB CONC 33 g/dL (32.5-36.3); MONOCYTES # (AUTO) 0.8 K/uL (0.1-1.30); MONOCYTES % (AUTO) 14.6 % (0.0-11.0); NEUTROPHILS # (AUTO) 2.7 K/uL (1.8-8.9); NEUTROPHILS % (AUTO) 51.7 % (38.5-71.5); PLATELET COUNT (AUTO) 212 K/uL (152-348); RED BLOOD CELL COUNT(AUTO) 3.88 MIL/uL (4.06-5.63); RED CELL DISTRIBUTION WIDTH 16.1 % (12.1-16.2); WHITE BLOOD COUNT (AUTO) 5.2 K/uL (3.6-10.2)
[2023-01-17 04:53] LABS: DIFFERENTIAL COMMENT 1
[2023-01-17 05:03] LABS: CALCIUM 7.6 mg/dL (8.5-10.1); CREATININE 0.8 mg/dL (0.6-1.3); MAGNESIUM 1.8 mg/dL (1.8-2.4); PHOSPHOROUS 3.2 mg/dL (2.5-4.9); POTASSIUM 4.2 mmol/L (3.5-5.1)
[2023-01-17] MEDS: MEROPENEM 1 G in IV NORMAL SALINE 100 ML IV SCH ×3 (05:43→21:05)
[2023-01-17] MEDS: VANCOMYCIN FOR PO/GT/NG USE GT SCH ×3 (05:43→17:23)
[2023-01-17 06:21] LABS: ABG BASE EXCESS -2.2 mmol/L; ABG HCO3 21.7 mmol/L; ABG PCO2 34.1 mmHg (35.0-45.0); ABG PH 7.421 (7.350-7.450); ABG SITE RIGHT RADIAL; ABG TOTAL HEMOGLOBIN 10.8 G/dL (13.5-18.0); COHb 0.3 % (0.5-1.5); MetHb 0.2 % (0.0-1.5); O2Hb 94.4 % (94.0-97.0); VENT MODE VENT - A/C; VT, ABG 450 mL
[2023-01-17] MEDS: ALBUTEROL SULFATE 2.5 MG/3 ML NEBU NEB SCH ×4 (07:28→19:39)
[2023-01-17] MEDS: IPRATROPIUM BROMIDE 0.5 MG/2.5 ML NEBU NEB SCH ×4 (07:28→19:39)
[2023-01-17] MEDS: ACETYLCYSTEINE 10% 4ML VIAL NEB SCH ×3 (07:29→23:26)
[2023-01-17] MEDS: FAMOTIDINE 20 MG TABLET GT SCH (09:03)
[2023-01-17] MEDS: PROTEIN SUPPLEMENT (PROSTAT) 30 ML LIQUID GT SCH ×2 (09:04→16:24)
[2023-01-17] MEDS: CLOTRIMAZOLE 1% CREAM 30 GM TUBE TOP SCH ×2 (09:05→16:25)
[2023-01-17] MEDS: JEVITY 1.2 1000 ML LIQUID GT PRN (09:07)
[2023-01-17] MEDS: ENOXAPARIN SODIUM 80 MG/0.8 ML DISP.SYRIN SQ SCH ×2 (12:36→20:54)
[2023-01-17] MEDS: IV NORMAL SALINE 250 ML IV PRN (14:33)
[2023-01-18] VITALS (23 sets, daily range): BP systolic 103–141; BP diastolic 46–79; TEMP 98.3–99.8; O2SAT 95–100
[2023-01-18] MEDS: PROPOFOL 100 ML IV PRN ×3 (00:17→14:59)
[2023-01-18] MEDS: VANCOMYCIN FOR PO/GT/NG USE GT SCH ×5 (00:18→23:09)
[2023-01-18 04:47] LABS: BASOPHILS # (AUTO) 0.1 K/UL (0.0-0.2); BASOPHILS % (AUTO) 1.5 % (0.0-2.0); EOSINOPHILS # (AUTO) 0.7 K/uL (0.0-0.7); EOSINOPHILS % (AUTO) 15.3 % (0.0-7.0); HEMATOCRIT 28.9 % (36.7-47.1); HEMOGLOBIN 9.5 g/dL (12.5-16.3); LYMPHOCYTES # (AUTO) 0.9 K/uL (0.8-4.8); MEAN CORPUSCULAR HEMOGLOBIN 27.4 uug (23.8-33.4); MEAN CORPUSCULAR HGB CONC 33 g/dL (32.5-36.3); MEAN CORPUSCULAR VOLUME 83.2 fL (73.0-96.2); MONOCYTES # (AUTO) 0.5 K/uL (0.1-1.30); MONOCYTES % (AUTO) 11.4 % (0.0-11.0); NEUTROPHILS # (AUTO) 2.5 K/uL (1.8-8.9); NEUTROPHILS % (AUTO) 53.8 % (38.5-71.5); PLATELET COUNT (AUTO) 180 K/uL (152-348); RED BLOOD CELL COUNT(AUTO) 3.47 MIL/uL (4.06-5.63); RED CELL DISTRIBUTION WIDTH 16.1 % (12.1-16.2); WHITE BLOOD COUNT (AUTO) 4.7 K/uL (3.6-10.2)
[2023-01-18 04:54] LABS: DIFFERENTIAL COMMENT 1
[2023-01-18 05:03] LABS: CALCIUM 7.7 mg/dL (8.5-10.1); CARBON DIOXIDE 27 mmol/L (21-32); CHLORIDE 112 mmol/L (98-107); CREATININE 0.8 mg/dL (0.6-1.3); GLUCOSE 118 mg/dL (74-106); MAGNESIUM 1.8 mg/dL (1.8-2.4); PHOSPHOROUS 3.2 mg/dL (2.5-4.9); POTASSIUM 4.9 mmol/L (3.5-5.1); SODIUM SERUM 145 mmol/L (136-145); UREA NITROGEN, BLOOD 34 mg/dL (7-18)
[2023-01-18] MEDS: MEROPENEM 1 G in IV NORMAL SALINE 100 ML IV SCH ×3 (05:04→21:12)
[2023-01-18] MEDS: ACETYLCYSTEINE 10% 4ML VIAL NEB SCH ×3 (07:24→22:49)
[2023-01-18] MEDS: ALBUTEROL SULFATE 2.5 MG/3 ML NEBU NEB SCH ×4 (07:24→19:57)
[2023-01-18] MEDS: IPRATROPIUM BROMIDE 0.5 MG/2.5 ML NEBU NEB SCH ×4 (07:24→19:57)
[2023-01-18 07:44] LABS: ABG BASE EXCESS 1.8 mmol/L; ABG HCO3 25.1 mmol/L; ABG PCO2 34.6 mmHg (35.0-45.0); ABG PH 7.479 (7.350-7.450); ABG PO2 79.7 mmHg (75.0-100.0); ABG SITE LEFT RADIAL; ABG TOTAL HEMOGLOBIN 9.7 G/dL (13.5-18.0); COHb 0.3 % (0.5-1.5); MetHb 0.1 % (0.0-1.5); O2Hb 95.3 % (94.0-97.0); VENT MODE VENT - A/C; VT, ABG 450 mL
[2023-01-18] MEDS: FAMOTIDINE 20 MG TABLET GT SCH (08:27)
[2023-01-18] MEDS: PROTEIN SUPPLEMENT (PROSTAT) 30 ML LIQUID GT SCH ×2 (08:29→16:11)
[2023-01-18] MEDS: ENOXAPARIN SODIUM 80 MG/0.8 ML DISP.SYRIN SQ SCH ×2 (08:30→21:16)
[2023-01-18] MEDS: CLOTRIMAZOLE 1% CREAM 30 GM TUBE TOP SCH ×2 (08:31→16:12)
[2023-01-18] MEDS: JEVITY 1.2 1000 ML LIQUID GT PRN (08:35)
[2023-01-18] MEDS ORDERED: MEDIHONEY= THERAHONEY 1.5 OZ TUBE TOP SCH (12:00)
[2023-01-18] MEDS: MEDIHONEY= THERAHONEY 1.5 OZ TUBE TOP SCH (15:24)
[2023-01-18] MEDS: ACETAMINOPHEN 650 MG/20.3 ML LIQUID UDC GT PRN (21:14)
[2023-01-18] MEDS: ALBUTEROL SULFATE 2.5 MG/3 ML NEBU NEB PRN (22:49)
[2023-01-19] VITALS (24 sets, daily range): BP systolic 98–146; BP diastolic 45–68; TEMP 97.5–99.8; O2SAT 94–100
[2023-01-19] MEDS: IV NORMAL SALINE 250 ML IV PRN (00:35)
[2023-01-19] MEDS: REMEDY ESSENTIAL ZINC PASTE 113 GM TP PRN (00:35)
[2023-01-19] MEDS: PROPOFOL 100 ML IV PRN ×4 (00:35→23:37)
[2023-01-19 04:53] LABS: BASOPHILS # (AUTO) 0.1 K/UL (0.0-0.2); BASOPHILS % (AUTO) 1.2 % (0.0-2.0); EOSINOPHILS # (AUTO) 0.6 K/uL (0.0-0.7); EOSINOPHILS % (AUTO) 12.3 % (0.0-7.0); HEMATOCRIT 29.8 % (36.7-47.1); HEMOGLOBIN 9.7 g/dL (12.5-16.3); LYMPHOCYTES % (AUTO) 18.7 % (20.5-51.5); MEAN CORPUSCULAR HEMOGLOBIN 27.1 uug (23.8-33.4); MEAN CORPUSCULAR HGB CONC 33 g/dL (32.5-36.3); MEAN CORPUSCULAR VOLUME 83.1 fL (73.0-96.2); MONOCYTES # (AUTO) 0.6 K/uL (0.1-1.30); MONOCYTES % (AUTO) 12.2 % (0.0-11.0); NEUTROPHILS # (AUTO) 2.8 K/uL (1.8-8.9); NEUTROPHILS % (AUTO) 55.6 % (38.5-71.5); PLATELET COUNT (AUTO) 168 K/uL (152-348); RED BLOOD CELL COUNT(AUTO) 3.58 MIL/uL (4.06-5.63); RED CELL DISTRIBUTION WIDTH 15.8 % (12.1-16.2); WHITE BLOOD COUNT (AUTO) 5.1 K/uL (3.6-10.2)
[2023-01-19 04:55] LABS: DIFFERENTIAL COMMENT 1
[2023-01-19] MEDS: VANCOMYCIN FOR PO/GT/NG USE GT SCH ×4 (05:01→23:20)
[2023-01-19] MEDS: MEROPENEM 1 G in IV NORMAL SALINE 100 ML IV SCH ×3 (05:01→21:14)
[2023-01-19 05:09] LABS: CARBON DIOXIDE 29 mmol/L (21-32); CHLORIDE 111 mmol/L (98-107); CREATININE 0.8 mg/dL (0.6-1.3); GLUCOSE 121 mg/dL (74-106); MAGNESIUM 1.9 mg/dL (1.8-2.4); PHOSPHOROUS 3.6 mg/dL (2.5-4.9); SODIUM SERUM 146 mmol/L (136-145); UREA NITROGEN, BLOOD 35 mg/dL (7-18)
[2023-01-19] MEDS: ACETYLCYSTEINE 10% 4ML VIAL NEB SCH ×3 (07:45→21:23)
[2023-01-19] MEDS: ALBUTEROL SULFATE 2.5 MG/3 ML NEBU NEB SCH ×4 (07:46→21:22)
[2023-01-19] MEDS: IPRATROPIUM BROMIDE 0.5 MG/2.5 ML NEBU NEB SCH ×4 (07:46→21:21)
[2023-01-19] MEDS: ASCORBIC ACID 500 MG TABLET PEG SCH (08:06)
[2023-01-19] MEDS: CLOTRIMAZOLE 1% CREAM 30 GM TUBE TOP SCH ×2 (08:06→16:28)
[2023-01-19] MEDS: ZINC SULFATE 220 MG CAPSULE GT SCH (08:06)
[2023-01-19] MEDS: FAMOTIDINE 20 MG TABLET GT SCH (08:06)
[2023-01-19] MEDS: PROTEIN SUPPLEMENT (PROSTAT) 30 ML LIQUID GT SCH ×2 (08:11→16:28)
[2023-01-19] MEDS: MEDIHONEY= THERAHONEY 1.5 OZ TUBE TOP SCH (08:12)
[2023-01-19] MEDS: ENOXAPARIN SODIUM 80 MG/0.8 ML DISP.SYRIN SQ SCH ×2 (08:13→20:19)
[2023-01-20] VITALS (22 sets, daily range): BP systolic 95–132; BP diastolic 46–68; TEMP 97.9–99.8; O2SAT 93–99
[2023-01-20 04:55] LABS: BASOPHILS # (AUTO) 0.1 K/UL (0.0-0.2); BASOPHILS % (AUTO) 1.4 % (0.0-2.0); EOSINOPHILS # (AUTO) 0.6 K/uL (0.0-0.7); EOSINOPHILS % (AUTO) 11.4 % (0.0-7.0); HEMATOCRIT 28.4 % (36.7-47.1); HEMOGLOBIN 9.4 g/dL (12.5-16.3); LYMPHOCYTES # (AUTO) 1.1 K/uL (0.8-4.8); LYMPHOCYTES % (AUTO) 19.4 % (20.5-51.5); MEAN CORPUSCULAR HEMOGLOBIN 27.2 uug (23.8-33.4); MEAN CORPUSCULAR HGB CONC 33 g/dL (32.5-36.3); MEAN CORPUSCULAR VOLUME 82.2 fL (73.0-96.2); MONOCYTES # (AUTO) 0.6 K/uL (0.1-1.30); MONOCYTES % (AUTO) 10.4 % (0.0-11.0); NEUTROPHILS # (AUTO) 3.1 K/uL (1.8-8.9); NEUTROPHILS % (AUTO) 57.4 % (38.5-71.5); PLATELET COUNT (AUTO) 173 K/uL (152-348); RED BLOOD CELL COUNT(AUTO) 3.45 MIL/uL (4.06-5.63); WHITE BLOOD COUNT (AUTO) 5.5 K/uL (3.6-10.2)
[2023-01-20 05:03] LABS: DIFFERENTIAL COMMENT 1
[2023-01-20 05:09] LABS: CALCIUM 7.9 mg/dL (8.5-10.1); CARBON DIOXIDE 28 mmol/L (21-32); CHLORIDE 111 mmol/L (98-107); CREATININE 0.8 mg/dL (0.6-1.3); GLUCOSE 121 mg/dL (74-106); MAGNESIUM 1.8 mg/dL (1.8-2.4); PHOSPHOROUS 3.5 mg/dL (2.5-4.9); POTASSIUM 4.9 mmol/L (3.5-5.1); SODIUM SERUM 144 mmol/L (136-145); UREA NITROGEN, BLOOD 36 mg/dL (7-18)
[2023-01-20] MEDS: MEROPENEM 1 G in IV NORMAL SALINE 100 ML IV SCH ×2 (05:27→13:17)
[2023-01-20] MEDS: VANCOMYCIN FOR PO/GT/NG USE GT SCH ×4 (05:27→23:52)
[2023-01-20] MEDS: PROPOFOL 100 ML IV PRN ×3 (06:23→22:38)
[2023-01-20 06:25] LABS: ABG BASE EXCESS 0.6 mmol/L; ABG HCO3 24.2 mmol/L; ABG PCO2 35.1 mmHg (35.0-45.0); ABG PH 7.457 (7.350-7.450); ABG PO2 71.7 mmHg (75.0-100.0); ABG SITE LEFT RADIAL; COHb 0.3 % (0.5-1.5); VENT MODE VENT - A/C; VT, ABG 450 mL
[2023-01-20] MEDS: IPRATROPIUM BROMIDE 0.5 MG/2.5 ML NEBU NEB SCH ×4 (07:14→19:26)
[2023-01-20] MEDS: ACETYLCYSTEINE 10% 4ML VIAL NEB SCH ×3 (07:14→23:31)
[2023-01-20] MEDS: ALBUTEROL SULFATE 2.5 MG/3 ML NEBU NEB SCH ×4 (07:14→19:26)
[2023-01-20] MEDS: ASCORBIC ACID 500 MG TABLET PEG SCH (09:10)
[2023-01-20] MEDS: PROTEIN SUPPLEMENT (PROSTAT) 30 ML LIQUID GT SCH ×2 (09:10→20:05)
[2023-01-20] MEDS: ENOXAPARIN SODIUM 80 MG/0.8 ML DISP.SYRIN SQ SCH ×2 (09:11→20:11)
[2023-01-20] MEDS: ZINC SULFATE 220 MG CAPSULE GT SCH (09:11)
[2023-01-20] MEDS: FAMOTIDINE 20 MG TABLET GT SCH (09:11)
[2023-01-20] MEDS: CLOTRIMAZOLE 1% CREAM 30 GM TUBE TOP SCH ×2 (09:12→20:07)
[2023-01-20] MEDS: MEDIHONEY= THERAHONEY 1.5 OZ TUBE TOP SCH (09:13)
[2023-01-20] MEDS ORDERED: IPRATROPIUM BROMIDE 0.5 MG/2.5 ML NEBU ONE ×2 (19:24→23:28)
[2023-01-20] MEDS ORDERED: ALBUTEROL SULFATE 2.5 MG/3 ML NEBU ONE ×2 (19:24→23:28)
[2023-01-20] MEDS ORDERED: ENOXAPARIN SODIUM 80 MG/0.8 ML DISP.SYRIN SQ ONE (19:54)
[2023-01-20] MEDS ORDERED: PROPOFOL 100 ML ONE (21:39)
[2023-01-20] MEDS ORDERED: ACETYLCYSTEINE 10% 4ML VIAL ONE (23:28)
[2023-01-20] MEDS: ALBUTEROL SULFATE 2.5 MG/3 ML NEBU NEB PRN (23:31)
[2023-01-21] VITALS (23 sets, daily range): BP systolic 109–147; BP diastolic 48–76; TEMP 98.3–99; O2SAT 94–100
[2023-01-21] MEDS: VANCOMYCIN FOR PO/GT/NG USE GT SCH ×4 (02:17→21:03)
[2023-01-21 04:37] LABS: BASOPHILS # (AUTO) 0.1 K/UL (0.0-0.2); BASOPHILS % (AUTO) 1.1 % (0.0-2.0); EOSINOPHILS # (AUTO) 0.7 K/uL (0.0-0.7); EOSINOPHILS % (AUTO) 10.5 % (0.0-7.0); HEMATOCRIT 30.4 % (36.7-47.1); HEMOGLOBIN 9.9 g/dL (12.5-16.3); LYMPHOCYTES # (AUTO) 1.1 K/uL (0.8-4.8); LYMPHOCYTES % (AUTO) 15.6 % (20.5-51.5); MEAN CORPUSCULAR HEMOGLOBIN 27.1 uug (23.8-33.4); MEAN CORPUSCULAR HGB CONC 33 g/dL (32.5-36.3); MEAN CORPUSCULAR VOLUME 83.4 fL (73.0-96.2); MONOCYTES # (AUTO) 0.7 K/uL (0.1-1.30); MONOCYTES % (AUTO) 9.7 % (0.0-11.0); NEUTROPHILS # (AUTO) 4.3 K/uL (1.8-8.9); NEUTROPHILS % (AUTO) 63.1 % (38.5-71.5); PLATELET COUNT (AUTO) 171 K/uL (152-348); RED BLOOD CELL COUNT(AUTO) 3.65 MIL/uL (4.06-5.63); RED CELL DISTRIBUTION WIDTH 15.5 % (12.1-16.2); WHITE BLOOD COUNT (AUTO) 6.8 K/uL (3.6-10.2)
[2023-01-21 04:49] LABS: DIFFERENTIAL COMMENT 1
[2023-01-21 04:54] LABS: CALCIUM 7.8 mg/dL (8.5-10.1); CREATININE 0.9 mg/dL (0.6-1.3); MAGNESIUM 1.8 mg/dL (1.8-2.4); POTASSIUM 4.8 mmol/L (3.5-5.1)
[2023-01-21 06:29] LABS: ABG BASE EXCESS 0.4 mmol/L; ABG HCO3 24.2 mmol/L; ABG PCO2 35.6 mmHg (35.0-45.0); ABG PO2 75.4 mmHg (75.0-100.0); ABG SITE RIGHT RADIAL; ABG TOTAL HEMOGLOBIN 10.2 G/dL (13.5-18.0); COHb 0.3 % (0.5-1.5); MetHb 0.2 % (0.0-1.5); O2Hb 94.8 % (94.0-97.0); VENT MODE VENT - A/C; VT, ABG 450 mL
[2023-01-21] MEDS: PROPOFOL 100 ML IV PRN ×2 (06:37→15:46)
[2023-01-21] MEDS: IPRATROPIUM BROMIDE 0.5 MG/2.5 ML NEBU NEB SCH ×4 (07:30→19:49)
[2023-01-21] MEDS: ALBUTEROL SULFATE 2.5 MG/3 ML NEBU NEB SCH ×4 (07:30→19:49)
[2023-01-21] MEDS: ACETYLCYSTEINE 10% 4ML VIAL NEB SCH ×2 (07:30→15:24)
[2023-01-21] MEDS: FAMOTIDINE 20 MG TABLET GT SCH (08:56)
[2023-01-21] MEDS: ASCORBIC ACID 500 MG TABLET PEG SCH (08:58)
[2023-01-21] MEDS: ALBUMIN HUMAN 25% 100 ML IV SCH ×3 (08:58→20:44)
[2023-01-21] MEDS: CLOTRIMAZOLE 1% CREAM 30 GM TUBE TOP SCH ×2 (08:59→17:07)
[2023-01-21] MEDS: PROTEIN SUPPLEMENT (PROSTAT) 30 ML LIQUID GT SCH ×2 (09:01→17:06)
[2023-01-21] MEDS: FUROSEMIDE 20 MG/2 ML VIAL IV SCH ×2 (09:01→20:44)
[2023-01-21] MEDS: MEDIHONEY= THERAHONEY 1.5 OZ TUBE TOP SCH (09:01)
[2023-01-21] MEDS: ENOXAPARIN SODIUM 80 MG/0.8 ML DISP.SYRIN SQ SCH (09:05)
[2023-01-21] MEDS: ZINC SULFATE 220 MG CAPSULE GT SCH (09:48)
[2023-01-21] MEDS ORDERED: DOPamine IV DRIP 400 MG/250ML 250 ML IV PRN (12:45)
[2023-01-21 13:08] LABS: ABG BASE EXCESS 2.2 mmol/L; ABG HCO3 26.3 mmol/L; ABG PCO2 38.5 mmHg (35.0-45.0); ABG PH 7.452 (7.350-7.450); ABG PO2 77.1 mmHg (75.0-100.0); ABG SITE LEFT RADIAL; ABG TOTAL HEMOGLOBIN 9.3 G/dL (13.5-18.0); COHb 0.3 % (0.5-1.5); MetHb 0.1 % (0.0-1.5); VENT MODE VENT - A/C; VT, ABG 450 mL
[2023-01-21 15:41] LABS: HIV-1 p24 ANTIGEN NON REACTIVE (NONREACTIVE); HIV-1/2 ANTIBODY NON REACTIVE (NONREACTIVE)
[2023-01-22] VITALS (36 sets, daily range): BP systolic 111–151; BP diastolic 52–75; TEMP 98–99.5; O2SAT 93–99
[2023-01-22] MEDS: ACETYLCYSTEINE 10% 4ML VIAL NEB SCH ×3 (00:01→15:34)
[2023-01-22] MEDS: ALBUTEROL SULFATE 2.5 MG/3 ML NEBU NEB PRN (00:01)
[2023-01-22] MEDS: PROPOFOL 100 ML IV PRN ×3 (01:13→20:17)
[2023-01-22] MEDS: ALBUMIN HUMAN 25% 100 ML IV SCH (01:13)
[2023-01-22 04:58] LABS: BASOPHILS # (AUTO) 0.1 K/UL (0.0-0.2); BASOPHILS % (AUTO) 1.5 % (0.0-2.0); EOSINOPHILS # (AUTO) 0.7 K/uL (0.0-0.7); EOSINOPHILS % (AUTO) 12.6 % (0.0-7.0); HEMATOCRIT 25.8 % (36.7-47.1); HEMOGLOBIN 8.5 g/dL (12.5-16.3); LYMPHOCYTES % (AUTO) 19.2 % (20.5-51.5); MEAN CORPUSCULAR HEMOGLOBIN 27.1 uug (23.8-33.4); MEAN CORPUSCULAR HGB CONC 33 g/dL (32.5-36.3); MEAN CORPUSCULAR VOLUME 82.2 fL (73.0-96.2); MONOCYTES # (AUTO) 0.6 K/uL (0.1-1.30); MONOCYTES % (AUTO) 11.5 % (0.0-11.0); NEUTROPHILS # (AUTO) 2.9 K/uL (1.8-8.9); NEUTROPHILS % (AUTO) 55.2 % (38.5-71.5); PLATELET COUNT (AUTO) 141 K/uL (152-348); RED BLOOD CELL COUNT(AUTO) 3.14 MIL/uL (4.06-5.63); RED CELL DISTRIBUTION WIDTH 15.6 % (12.1-16.2); WHITE BLOOD COUNT (AUTO) 5.3 K/uL (3.6-10.2)
[2023-01-22 05:09] LABS: DIFFERENTIAL COMMENT 1
[2023-01-22 05:56] LABS: CALCIUM 8.3 mg/dL (8.5-10.1); CARBON DIOXIDE 30 mmol/L (21-32); CHLORIDE 107 mmol/L (98-107); CREATININE 0.9 mg/dL (0.6-1.3); GLUCOSE 95 mg/dL (74-106); PHOSPHOROUS 4.1 mg/dL (2.5-4.9); POTASSIUM 4.8 mmol/L (3.5-5.1); SODIUM SERUM 144 mmol/L (136-145); UREA NITROGEN, BLOOD 43 mg/dL (7-18)
[2023-01-22 06:14] LABS: ABG BASE EXCESS 4.1 mmol/L; ABG HCO3 27.5 mmol/L; ABG PCO2 36.3 mmHg (35.0-45.0); ABG PH 7.497 (7.350-7.450); ABG PO2 67.3 mmHg (75.0-100.0); ABG SITE RIGHT RADIAL; ABG TOTAL HEMOGLOBIN 9.1 G/dL (13.5-18.0); COHb 0.1 % (0.5-1.5); MetHb 0.2 % (0.0-1.5); O2Hb 93.2 % (94.0-97.0); VENT MODE VENT - A/C; VT, ABG 450 mL
[2023-01-22] MEDS: ALBUTEROL SULFATE 2.5 MG/3 ML NEBU NEB SCH ×4 (07:07→20:49)
[2023-01-22] MEDS: IPRATROPIUM BROMIDE 0.5 MG/2.5 ML NEBU NEB SCH ×4 (07:07→20:49)
[2023-01-22] MEDS ORDERED: CEFAZOLIN 1 G VIAL ONE (07:15)
[2023-01-22] MEDS ORDERED: ETOMIDATE 20 MG/10 ML VIAL ONE (07:15)
[2023-01-22] MEDS: MEDIHONEY= THERAHONEY 1.5 OZ TUBE TOP SCH (09:00)
[2023-01-22] MEDS: FAMOTIDINE 20 MG TABLET GT SCH (13:20)
[2023-01-22] MEDS: ZINC SULFATE 220 MG CAPSULE GT SCH (13:20)
[2023-01-22] MEDS: FUROSEMIDE 20 MG/2 ML VIAL IV SCH ×2 (13:20→21:29)
[2023-01-22] MEDS: ASCORBIC ACID 500 MG TABLET PEG SCH (13:20)
[2023-01-22] MEDS: VANCOMYCIN FOR PO/GT/NG USE GT SCH ×2 (13:21→17:19)
[2023-01-22] MEDS: PROTEIN SUPPLEMENT (PROSTAT) 30 ML LIQUID GT SCH ×2 (13:22→17:30)
[2023-01-22] MEDS: CLOTRIMAZOLE 1% CREAM 30 GM TUBE TOP SCH ×2 (13:23→17:22)
[2023-01-22] MEDS: ENOXAPARIN SODIUM 80 MG/0.8 ML DISP.SYRIN SQ SCH (22:34)
[2023-01-23] VITALS (34 sets, daily range): BP systolic 107–152; BP diastolic 40–72; TEMP 97.3–102.9; O2SAT 92–97
[2023-01-23] MEDS: VANCOMYCIN FOR PO/GT/NG USE GT SCH ×5 (00:11→23:47)
[2023-01-23] MEDS: ACETYLCYSTEINE 10% 4ML VIAL NEB SCH ×4 (00:42→20:18)
[2023-01-23 05:21] LABS: BASOPHILS # (AUTO) 0.1 K/UL (0.0-0.2); BASOPHILS % (AUTO) 1.3 % (0.0-2.0); EOSINOPHILS # (AUTO) 0.5 K/uL (0.0-0.7); EOSINOPHILS % (AUTO) 7.4 % (0.0-7.0); HEMATOCRIT 27.7 % (36.7-47.1); HEMOGLOBIN 9.1 g/dL (12.5-16.3); LYMPHOCYTES # (AUTO) 1.4 K/uL (0.8-4.8); LYMPHOCYTES % (AUTO) 19.1 % (20.5-51.5); MEAN CORPUSCULAR HEMOGLOBIN 27.3 uug (23.8-33.4); MEAN CORPUSCULAR HGB CONC 33 g/dL (32.5-36.3); MEAN CORPUSCULAR VOLUME 82.8 fL (73.0-96.2); MONOCYTES # (AUTO) 0.8 K/uL (0.1-1.30); MONOCYTES % (AUTO) 11.6 % (0.0-11.0); NEUTROPHILS # (AUTO) 4.3 K/uL (1.8-8.9); NEUTROPHILS % (AUTO) 60.6 % (38.5-71.5); PLATELET COUNT (AUTO) 141 K/uL (152-348); RED BLOOD CELL COUNT(AUTO) 3.34 MIL/uL (4.06-5.63); RED CELL DISTRIBUTION WIDTH 15.8 % (12.1-16.2); WHITE BLOOD COUNT (AUTO) 7.2 K/uL (3.6-10.2)
[2023-01-23 05:30] LABS: CALCIUM 8.3 mg/dL (8.5-10.1); CREATININE 1.1 mg/dL (0.6-1.3); MAGNESIUM 2.1 mg/dL (1.8-2.4); PHOSPHOROUS 4.7 mg/dL (2.5-4.9); POTASSIUM 4.6 mmol/L (3.5-5.1)
[2023-01-23 05:34] LABS: DIFFERENTIAL COMMENT 1
[2023-01-23] MEDS: PROPOFOL 100 ML IV PRN (05:38)
[2023-01-23 06:27] LABS: ABG BASE EXCESS 3.8 mmol/L; ABG HCO3 27.1 mmol/L; ABG PH 7.495 (7.350-7.450); ABG PO2 77.7 mmHg (75.0-100.0); ABG SITE RIGHT RADIAL; ABG TOTAL HEMOGLOBIN 10.4 G/dL (13.5-18.0); COHb 0.3 % (0.5-1.5); MetHb 0.2 % (0.0-1.5); VENT MODE VENT - A/C; VT, ABG 450 mL
[2023-01-23] MEDS: ALBUTEROL SULFATE 2.5 MG/3 ML NEBU NEB SCH ×4 (08:19→20:18)
[2023-01-23] MEDS: IPRATROPIUM BROMIDE 0.5 MG/2.5 ML NEBU NEB SCH ×4 (08:19→20:18)
[2023-01-23] MEDS: FAMOTIDINE 20 MG TABLET GT SCH (10:36)
[2023-01-23] MEDS: ASCORBIC ACID 500 MG TABLET PEG SCH (10:36)
[2023-01-23] MEDS: ZINC SULFATE 220 MG CAPSULE GT SCH (10:36)
[2023-01-23] MEDS: FUROSEMIDE 20 MG/2 ML VIAL IV SCH ×2 (10:37→21:07)
[2023-01-23] MEDS: ENOXAPARIN SODIUM 80 MG/0.8 ML DISP.SYRIN SQ SCH ×2 (10:39→21:09)
[2023-01-23] MEDS: CLOTRIMAZOLE 1% CREAM 30 GM TUBE TOP SCH ×2 (10:40→17:01)
[2023-01-23] MEDS: MEDIHONEY= THERAHONEY 1.5 OZ TUBE TOP SCH (10:42)
[2023-01-23] MEDS: PROTEIN SUPPLEMENT (PROSTAT) 30 ML LIQUID GT SCH ×2 (10:43→17:01)
[2023-01-23 13:06] LABS: HEPATITIS B CORE AB, TOTAL Negative (Negative); HEPATITIS B SURFACE AG Negative (Negative)
[2023-01-23] MEDS: JEVITY 1.2 1000 ML LIQUID GT PRN (16:59)
[2023-01-23] MEDS: ACETAMINOPHEN 650 MG/20.3 ML LIQUID UDC GT PRN ×2 (16:59→22:54)
[2023-01-24] VITALS (24 sets, daily range): BP systolic 109–152; BP diastolic 42–81; TEMP 97.8–99.5; O2SAT 95–100
[2023-01-24] MEDS: VANCOMYCIN FOR PO/GT/NG USE GT SCH ×4 (05:40→23:32)
[2023-01-24] MEDS: IPRATROPIUM BROMIDE 0.5 MG/2.5 ML NEBU NEB SCH ×4 (06:50→20:45)
[2023-01-24] MEDS: ACETYLCYSTEINE 10% 4ML VIAL NEB SCH ×3 (06:50→20:45)
[2023-01-24] MEDS: ALBUTEROL SULFATE 2.5 MG/3 ML NEBU NEB SCH ×4 (06:50→20:45)
[2023-01-24] MEDS: FUROSEMIDE 20 MG/2 ML VIAL IV SCH (08:22)
[2023-01-24] MEDS: ZINC SULFATE 220 MG CAPSULE GT SCH (08:22)
[2023-01-24] MEDS: PROTEIN SUPPLEMENT (PROSTAT) 30 ML LIQUID GT SCH ×2 (08:22→17:03)
[2023-01-24] MEDS: ASCORBIC ACID 500 MG TABLET PEG SCH (08:22)
[2023-01-24] MEDS: FAMOTIDINE 20 MG TABLET GT SCH (08:22)
[2023-01-24] MEDS: CLOTRIMAZOLE 1% CREAM 30 GM TUBE TOP SCH ×2 (08:23→17:03)
[2023-01-24] MEDS: MEDIHONEY= THERAHONEY 1.5 OZ TUBE TOP SCH (08:23)
[2023-01-24] MEDS: ENOXAPARIN SODIUM 80 MG/0.8 ML DISP.SYRIN SQ SCH ×2 (09:15→21:05)
[2023-01-24] MEDS: JEVITY 1.2 1000 ML LIQUID GT PRN (10:13)
[2023-01-24 11:12] LABS: BASOPHILS # (AUTO) 0.1 K/UL (0.0-0.2); BASOPHILS % (AUTO) 0.9 % (0.0-2.0); EOSINOPHILS # (AUTO) 0.3 K/uL (0.0-0.7); EOSINOPHILS % (AUTO) 4.5 % (0.0-7.0); HEMATOCRIT 26.5 % (36.7-47.1); HEMOGLOBIN 8.6 g/dL (12.5-16.3); LYMPHOCYTES # (AUTO) 1.1 K/uL (0.8-4.8); LYMPHOCYTES % (AUTO) 15.4 % (20.5-51.5); MEAN CORPUSCULAR HEMOGLOBIN 27.2 uug (23.8-33.4); MEAN CORPUSCULAR HGB CONC 33 g/dL (32.5-36.3); MEAN CORPUSCULAR VOLUME 83.2 fL (73.0-96.2); NEUTROPHILS # (AUTO) 4.9 K/uL (1.8-8.9); NEUTROPHILS % (AUTO) 66.2 % (38.5-71.5); PLATELET COUNT (AUTO) 129 K/uL (152-348); RED BLOOD CELL COUNT(AUTO) 3.18 MIL/uL (4.06-5.63); RED CELL DISTRIBUTION WIDTH 15.7 % (12.1-16.2); WHITE BLOOD COUNT (AUTO) 7.5 K/uL (3.6-10.2)
[2023-01-24 11:13] LABS: DIFFERENTIAL COMMENT 1
[2023-01-24 11:27] LABS: ALBUMIN 2.4 g/dL (3.4-5.0); BILIRUBIN,TOTAL 0.5 mg/dL (0.2-1.0); CALCIUM 8.1 mg/dL (8.5-10.1); CREATININE 1.1 mg/dL (0.6-1.3); MAGNESIUM 2.1 mg/dL (1.8-2.4); POTASSIUM 4.1 mmol/L (3.5-5.1); TOTAL PROTEIN, SERUM 6.4 g/dL (6.4-8.2)
[2023-01-25] VITALS (24 sets, daily range): BP systolic 106–148; BP diastolic 48–85; TEMP 98.8–99.9; O2SAT 95–99
[2023-01-25 05:01] LABS: BASOPHILS # (AUTO) 0.1 K/UL (0.0-0.2); BASOPHILS % (AUTO) 0.7 % (0.0-2.0); EOSINOPHILS # (AUTO) 0.4 K/uL (0.0-0.7); EOSINOPHILS % (AUTO) 4.9 % (0.0-7.0); HEMATOCRIT 27.9 % (36.7-47.1); HEMOGLOBIN 9.2 g/dL (12.5-16.3); LYMPHOCYTES % (AUTO) 13.4 % (20.5-51.5); MEAN CORPUSCULAR HEMOGLOBIN 27.1 uug (23.8-33.4); MEAN CORPUSCULAR HGB CONC 33 g/dL (32.5-36.3); MEAN CORPUSCULAR VOLUME 82.3 fL (73.0-96.2); MONOCYTES # (AUTO) 0.8 K/uL (0.1-1.30); NEUTROPHILS # (AUTO) 5.1 K/uL (1.8-8.9); PLATELET COUNT (AUTO) 131 K/uL (152-348); RED BLOOD CELL COUNT(AUTO) 3.39 MIL/uL (4.06-5.63); RED CELL DISTRIBUTION WIDTH 15.2 % (12.1-16.2); WHITE BLOOD COUNT (AUTO) 7.2 K/uL (3.6-10.2)
[2023-01-25 05:24] LABS: DIFFERENTIAL COMMENT 1
[2023-01-25 05:25] LABS: CALCIUM 8.3 mg/dL (8.5-10.1); CARBON DIOXIDE 31 mmol/L (21-32); CHLORIDE 103 mmol/L (98-107); CREATININE 0.9 mg/dL (0.6-1.3); GLUCOSE 120 mg/dL (74-106); MAGNESIUM 2.1 mg/dL (1.8-2.4); PHOSPHOROUS 4.3 mg/dL (2.5-4.9); SODIUM SERUM 141 mmol/L (136-145); UREA NITROGEN, BLOOD 52 mg/dL (7-18)
[2023-01-25] MEDS: VANCOMYCIN FOR PO/GT/NG USE GT SCH ×4 (05:55→23:30)
[2023-01-25] MEDS: ACETYLCYSTEINE 10% 4ML VIAL NEB SCH ×2 (07:32→15:41)
[2023-01-25] MEDS: IPRATROPIUM BROMIDE 0.5 MG/2.5 ML NEBU NEB SCH ×4 (07:32→19:46)
[2023-01-25] MEDS: ALBUTEROL SULFATE 2.5 MG/3 ML NEBU NEB SCH ×4 (07:32→19:46)
[2023-01-25] MEDS: PROTEIN SUPPLEMENT (PROSTAT) 30 ML LIQUID GT SCH ×3 (08:02→18:04)
[2023-01-25] MEDS: FAMOTIDINE 20 MG TABLET GT SCH (08:02)
[2023-01-25] MEDS: ZINC SULFATE 220 MG CAPSULE GT SCH (08:02)
[2023-01-25] MEDS: ASCORBIC ACID 500 MG TABLET PEG SCH (08:02)
[2023-01-25] MEDS: MEDIHONEY= THERAHONEY 1.5 OZ TUBE TOP SCH (08:03)
[2023-01-25] MEDS: CLOTRIMAZOLE 1% CREAM 30 GM TUBE TOP SCH ×2 (08:03→18:04)
[2023-01-25] MEDS: ENOXAPARIN SODIUM 80 MG/0.8 ML DISP.SYRIN SQ SCH ×2 (08:04→20:20)
[2023-01-25] MEDS: ACETAMINOPHEN 650 MG/20.3 ML LIQUID UDC GT PRN (08:09)
[2023-01-25] MEDS: JEVITY 1.2 1000 ML LIQUID GT PRN (08:10)
[2023-01-26] VITALS (24 sets, daily range): BP systolic 114–158; BP diastolic 57–108; TEMP 98.5–99.9; O2SAT 96–100
[2023-01-26] MEDS: ACETYLCYSTEINE 10% 4ML VIAL NEB SCH ×4 (00:54→23:35)
[2023-01-26] MEDS: ALBUTEROL SULFATE 2.5 MG/3 ML NEBU NEB PRN ×2 (00:54→23:34)
[2023-01-26] MEDS: VANCOMYCIN FOR PO/GT/NG USE GT SCH ×3 (05:26→18:18)
[2023-01-26] MEDS: ALBUTEROL SULFATE 2.5 MG/3 ML NEBU NEB SCH ×4 (07:08→19:16)
[2023-01-26] MEDS: IPRATROPIUM BROMIDE 0.5 MG/2.5 ML NEBU NEB SCH ×4 (07:08→19:16)
[2023-01-26] MEDS: ASCORBIC ACID 500 MG TABLET PEG SCH (09:02)
[2023-01-26] MEDS: FAMOTIDINE 20 MG TABLET GT SCH (09:02)
[2023-01-26] MEDS: ZINC SULFATE 220 MG CAPSULE GT SCH (09:03)
[2023-01-26] MEDS: PROTEIN SUPPLEMENT (PROSTAT) 30 ML LIQUID GT SCH ×3 (09:03→18:18)
[2023-01-26] MEDS: MEDIHONEY= THERAHONEY 1.5 OZ TUBE TOP SCH (09:04)
[2023-01-26] MEDS: CLOTRIMAZOLE 1% CREAM 30 GM TUBE TOP SCH ×2 (09:04→18:19)
[2023-01-26] MEDS: ENOXAPARIN SODIUM 80 MG/0.8 ML DISP.SYRIN SQ SCH ×2 (09:10→21:00)
[2023-01-26] MEDS: ACETAMINOPHEN 650 MG/20.3 ML LIQUID UDC GT PRN (16:29)
[2023-01-27] VITALS (25 sets, daily range): BP systolic 104–166; BP diastolic 55–82; TEMP 98.2–101; O2SAT 96–100
[2023-01-27] MEDS: VANCOMYCIN FOR PO/GT/NG USE GT SCH ×5 (00:28→23:07)
[2023-01-27 04:56] LABS: BASOPHILS % (AUTO) 0.7 % (0.0-2.0); EOSINOPHILS # (AUTO) 0.4 K/uL (0.0-0.7); EOSINOPHILS % (AUTO) 7.4 % (0.0-7.0); HEMATOCRIT 26.4 % (36.7-47.1); HEMOGLOBIN 8.7 g/dL (12.5-16.3); LYMPHOCYTES # (AUTO) 0.8 K/uL (0.8-4.8); LYMPHOCYTES % (AUTO) 15.5 % (20.5-51.5); MEAN CORPUSCULAR HEMOGLOBIN 27.2 uug (23.8-33.4); MEAN CORPUSCULAR HGB CONC 33 g/dL (32.5-36.3); MONOCYTES # (AUTO) 0.6 K/uL (0.1-1.30); MONOCYTES % (AUTO) 10.9 % (0.0-11.0); NEUTROPHILS # (AUTO) 3.4 K/uL (1.8-8.9); NEUTROPHILS % (AUTO) 65.5 % (38.5-71.5); PLATELET COUNT (AUTO) 127 K/uL (152-348); RED BLOOD CELL COUNT(AUTO) 3.18 MIL/uL (4.06-5.63); RED CELL DISTRIBUTION WIDTH 15.3 % (12.1-16.2); WHITE BLOOD COUNT (AUTO) 5.1 K/uL (3.6-10.2)
[2023-01-27 05:16] LABS: CALCIUM 8.3 mg/dL (8.5-10.1); CARBON DIOXIDE 30 mmol/L (21-32); CHLORIDE 103 mmol/L (98-107); GLUCOSE 112 mg/dL (74-106); MAGNESIUM 2.3 mg/dL (1.8-2.4); PHOSPHOROUS 4.2 mg/dL (2.5-4.9); POTASSIUM 5.1 mmol/L (3.5-5.1); SODIUM SERUM 140 mmol/L (136-145); UREA NITROGEN, BLOOD 48 mg/dL (7-18)
[2023-01-27] MEDS: ACETAMINOPHEN 650 MG/20.3 ML LIQUID UDC GT PRN ×2 (05:31→23:07)
[2023-01-27 05:56] LABS: DIFFERENTIAL COMMENT 1
[2023-01-27] MEDS: ACETYLCYSTEINE 10% 4ML VIAL NEB SCH ×3 (07:12→23:35)
[2023-01-27] MEDS: ALBUTEROL SULFATE 2.5 MG/3 ML NEBU NEB SCH ×4 (07:12→19:23)
[2023-01-27] MEDS: IPRATROPIUM BROMIDE 0.5 MG/2.5 ML NEBU NEB SCH ×4 (07:13→19:23)
[2023-01-27 07:27] LABS: ABG BASE EXCESS 3.3 mmol/L; ABG HCO3 27.3 mmol/L; ABG PCO2 39.2 mmHg (35.0-45.0); ABG PH 7.461 (7.350-7.450); ABG PO2 68.8 mmHg (75.0-100.0); ABG SITE RIGHT RADIAL; ABG TOTAL HEMOGLOBIN 8.8 G/dL (13.5-18.0); CPAP,BG 0 cmH20; MetHb 0.2 % (0.0-1.5); O2Hb 93.2 % (94.0-97.0); VENT MODE VENT - CPAP - PS 0
[2023-01-27] MEDS: JEVITY 1.2 1000 ML LIQUID GT PRN (08:19)
[2023-01-27] MEDS: PROTEIN SUPPLEMENT (PROSTAT) 30 ML LIQUID GT SCH ×3 (08:19→17:12)
[2023-01-27] MEDS: FAMOTIDINE 20 MG TABLET GT SCH (08:24)
[2023-01-27] MEDS: ZINC SULFATE 220 MG CAPSULE GT SCH (08:24)
[2023-01-27] MEDS: ASCORBIC ACID 500 MG TABLET PEG SCH (08:24)
[2023-01-27] MEDS: CLOTRIMAZOLE 1% CREAM 30 GM TUBE TOP SCH ×2 (08:25→17:13)
[2023-01-27] MEDS: MEDIHONEY= THERAHONEY 1.5 OZ TUBE TOP SCH (08:26)
[2023-01-27] MEDS: ENOXAPARIN SODIUM 80 MG/0.8 ML DISP.SYRIN SQ SCH ×2 (08:29→20:36)
[2023-01-27] MEDS: CARBIDOPA/LEVODOPA 25-100MG TABLET PO SCH (20:34)
[2023-01-27] MEDS: ACIDOPHILUS/BULGARICUS CHEW TAB GT SCH (21:24)
[2023-01-27] MEDS: ALBUTEROL SULFATE 2.5 MG/3 ML NEBU NEB PRN (23:36)
[2023-01-28] VITALS (30 sets, daily range): BP systolic 103–155; BP diastolic 48–106; TEMP 98.4–99.6; O2SAT 95–100
[2023-01-28 04:52] LABS: BASOPHILS % (AUTO) 0.8 % (0.0-2.0); EOSINOPHILS # (AUTO) 0.4 K/uL (0.0-0.7); EOSINOPHILS % (AUTO) 7.6 % (0.0-7.0); HEMATOCRIT 27.4 % (36.7-47.1); HEMOGLOBIN 8.9 g/dL (12.5-16.3); LYMPHOCYTES # (AUTO) 0.9 K/uL (0.8-4.8); LYMPHOCYTES % (AUTO) 19.1 % (20.5-51.5); MEAN CORPUSCULAR HEMOGLOBIN 27.3 uug (23.8-33.4); MEAN CORPUSCULAR HGB CONC 33 g/dL (32.5-36.3); MONOCYTES # (AUTO) 0.5 K/uL (0.1-1.30); MONOCYTES % (AUTO) 11.1 % (0.0-11.0); NEUTROPHILS % (AUTO) 61.4 % (38.5-71.5); PLATELET COUNT (AUTO) 144 K/uL (152-348); RED BLOOD CELL COUNT(AUTO) 3.26 MIL/uL (4.06-5.63); RED CELL DISTRIBUTION WIDTH 15.2 % (12.1-16.2); WHITE BLOOD COUNT (AUTO) 4.9 K/uL (3.6-10.2)
[2023-01-28 05:08] LABS: DIFFERENTIAL COMMENT 1
[2023-01-28] MEDS: ACIDOPHILUS/BULGARICUS CHEW TAB GT SCH ×3 (05:13→21:07)
[2023-01-28] MEDS: VANCOMYCIN FOR PO/GT/NG USE GT SCH ×3 (05:13→17:25)
[2023-01-28 05:20] LABS: C-REACTIVE PROTEIN 7.4 mg/dL (0.0-0.9); CARBON DIOXIDE 32 mmol/L (21-32); CHLORIDE 105 mmol/L (98-107); CREATININE 0.9 mg/dL (0.6-1.3); GLUCOSE 108 mg/dL (74-106); MAGNESIUM 2.2 mg/dL (1.8-2.4); PHOSPHOROUS 4.8 mg/dL (2.5-4.9); SODIUM SERUM 141 mmol/L (136-145); UREA NITROGEN, BLOOD 47 mg/dL (7-18)
[2023-01-28] MEDS: IPRATROPIUM BROMIDE 0.5 MG/2.5 ML NEBU NEB SCH ×4 (07:23→19:27)
[2023-01-28] MEDS: ACETYLCYSTEINE 10% 4ML VIAL NEB SCH ×3 (07:23→23:52)
[2023-01-28] MEDS: ALBUTEROL SULFATE 2.5 MG/3 ML NEBU NEB SCH ×4 (07:23→19:27)
[2023-01-28] MEDS: ZINC SULFATE 220 MG CAPSULE GT SCH (08:10)
[2023-01-28] MEDS: CARBIDOPA/LEVODOPA 25-100MG TABLET PO SCH ×2 (08:10→21:07)
[2023-01-28] MEDS: ASCORBIC ACID 500 MG TABLET PEG SCH (08:10)
[2023-01-28] MEDS: FAMOTIDINE 20 MG TABLET GT SCH (08:10)
[2023-01-28] MEDS: PROTEIN SUPPLEMENT (PROSTAT) 30 ML LIQUID GT SCH ×3 (08:10→16:11)
[2023-01-28] MEDS: CHOLECALCIFEROL 1,000 UNIT TABLET PO SCH (08:11)
[2023-01-28] MEDS: MEDIHONEY= THERAHONEY 1.5 OZ TUBE TOP SCH (08:12)
[2023-01-28] MEDS: CLOTRIMAZOLE 1% CREAM 30 GM TUBE TOP SCH ×2 (08:12→16:11)
[2023-01-28] MEDS: JEVITY 1.2 1000 ML LIQUID GT PRN (08:13)
[2023-01-28 08:15] LABS: ABG BASE EXCESS 3.6 mmol/L; ABG HCO3 27.4 mmol/L; ABG PCO2 38.4 mmHg (35.0-45.0); ABG PH 7.472 (7.350-7.450); ABG PO2 66.7 mmHg (75.0-100.0); ABG SITE RIGHT RADIAL; ABG TOTAL HEMOGLOBIN 9.1 G/dL (13.5-18.0); COHb 0.7 % (0.5-1.5); MetHb 0.3 % (0.0-1.5); O2Hb 92.3 % (94.0-97.0)
[2023-01-28] MEDS: ENOXAPARIN SODIUM 80 MG/0.8 ML DISP.SYRIN SQ SCH ×2 (08:16→21:22)
[2023-01-28 09:17] LABS: *BILIRUBIN,URIN NEGATIVE (NEGATIVE); *BLOOD, URINE 1+ (NEGATIVE); *CLARITY,URINE CLEAR (CLEAR); *COLOR,URINE YELLOW (YELLOW); *KETONES,URINE NEGATIVE (NEGATIVE); *PROTEIN,URINE 1+ (NEGATIVE); *UROBILINOGEN,URINE 0.2 E.U./dl (NORMAL); LEUKOCYTE ESTERASE ,URINE TRACE (NEGATIVE); NITRITE, URINE POSITIVE (NEGATIVE); PH,URINE 6.5 (5.0-8.0); UGLUCOSE NEGATIVE (NEGATIVE)
[2023-01-28 09:29] LABS: BACTERIA,URINE MANY /HPF (NONE SEEN); SQUAMOUS EPITHELIAL CELL,UR FEW /HPF (NONE SEEN)
[2023-01-28 09:38] LABS: CALCIUM OXALATE CRYSTALS,UR MODERATE /HPF (NONE SEEN)
[2023-01-28] MEDS: ALBUTEROL SULFATE 2.5 MG/3 ML NEBU NEB PRN (23:51)
[2023-01-29] VITALS (18 sets, daily range): BP systolic 141–168; BP diastolic 43–76; TEMP 98–99.5; O2SAT 95–99
[2023-01-29] MEDS: VANCOMYCIN FOR PO/GT/NG USE GT SCH ×4 (00:35→17:01)
[2023-01-29] MEDS: ACETAMINOPHEN 650 MG/20.3 ML LIQUID UDC GT PRN ×2 (00:42→21:43)
[2023-01-29] MEDS: ACIDOPHILUS/BULGARICUS CHEW TAB GT SCH ×3 (05:27→21:38)
[2023-01-29] MEDS: JEVITY 1.2 1000 ML LIQUID GT PRN (05:28)
[2023-01-29 06:40] LABS: CALCIUM 8.2 mg/dL (8.5-10.1); CARBON DIOXIDE 31 mmol/L (21-32); CHLORIDE 105 mmol/L (98-107); CREATININE 0.8 mg/dL (0.6-1.3); GLUCOSE 101 mg/dL (74-106); PHOSPHOROUS 3.5 mg/dL (2.5-4.9); SODIUM SERUM 140 mmol/L (136-145); UREA NITROGEN, BLOOD 42 mg/dL (7-18)
[2023-01-29 06:43] LABS: BASOPHILS # (AUTO) 0.1 K/UL (0.0-0.2); BASOPHILS % (AUTO) 0.8 % (0.0-2.0); EOSINOPHILS # (AUTO) 0.2 K/uL (0.0-0.7); EOSINOPHILS % (AUTO) 3.8 % (0.0-7.0); HEMATOCRIT 25.2 % (36.7-47.1); HEMOGLOBIN 8.3 g/dL (12.5-16.3); LYMPHOCYTES # (AUTO) 0.9 K/uL (0.8-4.8); LYMPHOCYTES % (AUTO) 14.5 % (20.5-51.5); MEAN CORPUSCULAR HEMOGLOBIN 27.5 uug (23.8-33.4); MEAN CORPUSCULAR HGB CONC 33 g/dL (32.5-36.3); MONOCYTES # (AUTO) 0.6 K/uL (0.1-1.30); MONOCYTES % (AUTO) 9.7 % (0.0-11.0); NEUTROPHILS # (AUTO) 4.5 K/uL (1.8-8.9); NEUTROPHILS % (AUTO) 71.2 % (38.5-71.5); PLATELET COUNT (AUTO) 152 K/uL (152-348); RED BLOOD CELL COUNT(AUTO) 3.03 MIL/uL (4.06-5.63); RED CELL DISTRIBUTION WIDTH 15.1 % (12.1-16.2); WHITE BLOOD COUNT (AUTO) 6.3 K/uL (3.6-10.2)
[2023-01-29 06:46] LABS: DIFFERENTIAL COMMENT 1
[2023-01-29] MEDS: ACETYLCYSTEINE 10% 4ML VIAL NEB SCH ×3 (07:35→23:13)
[2023-01-29] MEDS: ALBUTEROL SULFATE 2.5 MG/3 ML NEBU NEB SCH ×4 (07:35→19:12)
[2023-01-29] MEDS: IPRATROPIUM BROMIDE 0.5 MG/2.5 ML NEBU NEB SCH ×4 (07:35→19:12)
[2023-01-29] MEDS: FAMOTIDINE 20 MG TABLET GT SCH (09:01)
[2023-01-29] MEDS: PROTEIN SUPPLEMENT (PROSTAT) 30 ML LIQUID GT SCH ×3 (09:01→16:49)
[2023-01-29] MEDS: CARBIDOPA/LEVODOPA 25-100MG TABLET PO SCH ×2 (09:01→21:38)
[2023-01-29] MEDS: ZINC SULFATE 220 MG CAPSULE GT SCH (09:01)
[2023-01-29] MEDS: CHOLECALCIFEROL 1,000 UNIT TABLET PO SCH (09:01)
[2023-01-29] MEDS: ASCORBIC ACID 500 MG TABLET PEG SCH (09:02)
[2023-01-29] MEDS: CLOTRIMAZOLE 1% CREAM 30 GM TUBE TOP SCH ×2 (09:06→16:49)
[2023-01-29] MEDS: MEDIHONEY= THERAHONEY 1.5 OZ TUBE TOP SCH (09:08)
[2023-01-29] MEDS: REMEDY ESSENTIAL ZINC PASTE 113 GM TP PRN (09:11)
[2023-01-29] MEDS: ENOXAPARIN SODIUM 80 MG/0.8 ML DISP.SYRIN SQ SCH ×2 (09:11→22:04)
[2023-01-29] MEDS: ALBUTEROL SULFATE 2.5 MG/3 ML NEBU NEB PRN (23:15)
[2023-01-30] VITALS (17 sets, daily range): BP systolic 113–155; BP diastolic 51–86; TEMP 98.2–98.9; O2SAT 92–100
[2023-01-30] MEDS: ACETAMINOPHEN 650 MG/20.3 ML LIQUID UDC GT PRN (05:07)
[2023-01-30] MEDS: ACIDOPHILUS/BULGARICUS CHEW TAB GT SCH ×3 (05:07→21:15)
[2023-01-30 06:55] LABS: BASOPHILS # (AUTO) 0.1 K/UL (0.0-0.2); BASOPHILS % (AUTO) 1.2 % (0.0-2.0); EOSINOPHILS # (AUTO) 0.3 K/uL (0.0-0.7); EOSINOPHILS % (AUTO) 5.6 % (0.0-7.0); HEMATOCRIT 25.9 % (36.7-47.1); HEMOGLOBIN 8.4 g/dL (12.5-16.3); LYMPHOCYTES % (AUTO) 18.7 % (20.5-51.5); MEAN CORPUSCULAR HEMOGLOBIN 27.2 uug (23.8-33.4); MEAN CORPUSCULAR HGB CONC 32 g/dL (32.5-36.3); MEAN CORPUSCULAR VOLUME 83.9 fL (73.0-96.2); MONOCYTES # (AUTO) 0.5 K/uL (0.1-1.30); MONOCYTES % (AUTO) 10.5 % (0.0-11.0); NEUTROPHILS # (AUTO) 3.3 K/uL (1.8-8.9); PLATELET COUNT (AUTO) 175 K/uL (152-348); RED BLOOD CELL COUNT(AUTO) 3.08 MIL/uL (4.06-5.63); RED CELL DISTRIBUTION WIDTH 15.6 % (12.1-16.2); WHITE BLOOD COUNT (AUTO) 5.2 K/uL (3.6-10.2)
[2023-01-30 07:09] LABS: CALCIUM 8.5 mg/dL (8.5-10.1); CARBON DIOXIDE 30 mmol/L (21-32); CHLORIDE 104 mmol/L (98-107); CREATININE 0.9 mg/dL (0.6-1.3); GLUCOSE 120 mg/dL (74-106); POTASSIUM 4.8 mmol/L (3.5-5.1); SODIUM SERUM 140 mmol/L (136-145); UREA NITROGEN, BLOOD 40 mg/dL (7-18)
[2023-01-30 07:10] LABS: DIFFERENTIAL COMMENT 1
[2023-01-30] MEDS: ACETYLCYSTEINE 10% 4ML VIAL NEB SCH ×3 (07:25→23:34)
[2023-01-30] MEDS: ALBUTEROL SULFATE 2.5 MG/3 ML NEBU NEB SCH ×4 (07:25→19:12)
[2023-01-30] MEDS: IPRATROPIUM BROMIDE 0.5 MG/2.5 ML NEBU NEB SCH ×4 (07:25→19:12)
[2023-01-30] MEDS: ASCORBIC ACID 500 MG TABLET PEG SCH (08:28)
[2023-01-30] MEDS: CHOLECALCIFEROL 1,000 UNIT TABLET PO SCH (08:28)
[2023-01-30] MEDS: CARBIDOPA/LEVODOPA 25-100MG TABLET PO SCH ×3 (08:28→21:15)
[2023-01-30] MEDS: ZINC SULFATE 220 MG CAPSULE GT SCH (08:28)
[2023-01-30] MEDS: FAMOTIDINE 20 MG TABLET GT SCH (08:28)
[2023-01-30] MEDS: CLOTRIMAZOLE 1% CREAM 30 GM TUBE TOP SCH ×2 (08:29→16:41)
[2023-01-30] MEDS: PROTEIN SUPPLEMENT (PROSTAT) 30 ML LIQUID GT SCH ×3 (08:29→16:41)
[2023-01-30] MEDS: MEDIHONEY= THERAHONEY 1.5 OZ TUBE TOP SCH (08:30)
[2023-01-30] MEDS: ENOXAPARIN SODIUM 80 MG/0.8 ML DISP.SYRIN SQ SCH (08:31)
[2023-01-30] MEDS: JEVITY 1.2 1000 ML LIQUID GT PRN (09:00)
[2023-01-30] MEDS ORDERED: FUROSEMIDE 20 MG/2 ML VIAL IV ONE (10:15)
[2023-01-30 11:14] LABS: ALBUMIN 2.6 g/dL (3.4-5.0); BILIRUBIN,DIRECT 0.1 mg/dL (0.0-0.2); BILIRUBIN,TOTAL 0.3 mg/dL (0.2-1.0); TOTAL PROTEIN, SERUM 6.7 g/dL (6.4-8.2)
[2023-01-30] MEDS: MULTIVITAMINS,THERAPEUTIC TABLET GT SCH (11:16)
[2023-01-30 11:43] LABS: THYROID STIMULATING HORMONE 2.89 mIU/mL (0.358-3.740)
[2023-01-30] MEDS ORDERED: SOD FERRIC GLUC COMPLX/SUCROSE 125 MG in IV NORMAL SALINE 100 ML IV ONE (13:00)
[2023-01-30] MEDS: RIVAROXABAN 15 MG TABLET PO SCH (17:38)
[2023-01-30] MEDS: ALBUTEROL SULFATE 2.5 MG/3 ML NEBU NEB PRN (23:35)
[2023-01-31] VITALS (14 sets, daily range): BP systolic 128–153; BP diastolic 58–75; TEMP 97.8–98.9; O2SAT 93–100
[2023-01-31 00:06] LABS: ADENOVIRUS Not Detected (Not Detected); CORONAVIRUS 229E Not Detected (Not Detected); CORONAVIRUS HKU1 Not Detected (Not Detected); CORONAVIRUS NL63 Not Detected (Not Detected); CORONAVIRUS OC43 Not Detected (Not Detected); NP BORDETELLA PERTUSIS Not Detected (Not Detected); NP CHLAMYDOPHILA PNEUMONIAE Not Detected (Not Detected); NP HUMAN METAPNEUMOVIRUS Not Detected (Not Detected); NP HUMAN RHINO/ENTERO VIRUS Not Detected (Not Detected); NP INFLUENZA A Not Detected (Not Detected); NP INFLUENZA A/H1 Not Detected (Not Detected); NP INFLUENZA A/H1-2009 Not Detected (Not Detected); NP INFLUENZA A/H3 Not Detected (Not Detected); NP INFLUENZA B Not Detected (Not Detected); NP MYCOPLASMA PNEUMONIAE Not Detected (Not Detected); NP PARAINFLUENZA 1 Not Detected (Not Detected); NP PARAINFLUENZA 2 Not Detected (Not Detected); NP PARAINFLUENZA 3 Not Detected (Not Detected); NP PARAINFLUENZA 4 Not Detected (Not Detected); NP RESPIRATORY SYNCYTIAL VIRUS Not Detected (Not Detected)
[2023-01-31] MEDS: ACETAMINOPHEN 650 MG/20.3 ML LIQUID UDC GT PRN ×3 (03:20→22:43)
[2023-01-31] MEDS: CARBIDOPA/LEVODOPA 25-100MG TABLET PO SCH ×3 (05:13→20:47)
[2023-01-31] MEDS: ACIDOPHILUS/BULGARICUS CHEW TAB GT SCH ×3 (05:13→20:47)
[2023-01-31] MEDS ORDERED: hydrALAZINE HCL 20 MG/1 ML VIAL IV PRN (06:15)
[2023-01-31] MEDS: ALBUTEROL SULFATE 2.5 MG/3 ML NEBU NEB SCH ×4 (07:03→20:02)
[2023-01-31] MEDS: IPRATROPIUM BROMIDE 0.5 MG/2.5 ML NEBU NEB SCH ×4 (07:03→20:02)
[2023-01-31] MEDS: ACETYLCYSTEINE 10% 4ML VIAL NEB SCH ×3 (07:04→23:41)
[2023-01-31] MEDS: BUMETANIDE 1 MG TABLET GT SCH (08:18)
[2023-01-31] MEDS: MULTIVITAMINS,THERAPEUTIC TABLET GT SCH (08:18)
[2023-01-31] MEDS: CHOLECALCIFEROL 1,000 UNIT TABLET PO SCH (08:18)
[2023-01-31] MEDS: ASCORBIC ACID 500 MG TABLET PEG SCH (08:18)
[2023-01-31] MEDS: FAMOTIDINE 20 MG TABLET GT SCH (08:19)
[2023-01-31] MEDS: CLOTRIMAZOLE 1% CREAM 30 GM TUBE TOP SCH ×2 (08:23→17:21)
[2023-01-31] MEDS: PROTEIN SUPPLEMENT (PROSTAT) 30 ML LIQUID GT SCH ×3 (08:23→17:21)
[2023-01-31] MEDS: MEDIHONEY= THERAHONEY 1.5 OZ TUBE TOP SCH (08:24)
[2023-01-31] MEDS: ZINC SULFATE 220 MG CAPSULE GT SCH (08:32)
[2023-01-31] MEDS: JEVITY 1.2 1000 ML LIQUID GT PRN (11:45)
[2023-01-31] MEDS: RIVAROXABAN 15 MG TABLET PO SCH (17:20)
[2023-01-31] MEDS: REMEDY ESSENTIAL ZINC PASTE 113 GM TP PRN (17:22)
[2023-01-31] MEDS: ALBUTEROL SULFATE 2.5 MG/3 ML NEBU NEB PRN (23:41)
[2023-02-01] VITALS (11 sets, daily range): BP systolic 105–137; BP diastolic 58–88; TEMP 98.4–98.9; O2SAT 95–100
[2023-02-01] MEDS: ACIDOPHILUS/BULGARICUS CHEW TAB GT SCH ×2 (06:23→14:03)
[2023-02-01] MEDS: CARBIDOPA/LEVODOPA 25-100MG TABLET PO SCH (06:24)
[2023-02-01 07:57] LABS: ALANINE AMINOTRANSFERASE 6 U/L (16-63); ALBUMIN 2.6 g/dL (3.4-5.0); ALKALINE PHOSPHATASE 64 U/L (50-136); ASPARTATE AMINOTRANSFERASE 14 U/L (15-37); BILIRUBIN,TOTAL 0.4 mg/dL (0.2-1.0); CALCIUM 8.5 mg/dL (8.5-10.1); CARBON DIOXIDE 29 mmol/L (21-32); CHLORIDE 102 mmol/L (98-107); CREATININE 0.9 mg/dL (0.6-1.3); GLUCOSE 97 mg/dL (74-106); SODIUM SERUM 138 mmol/L (136-145); TOTAL PROTEIN, SERUM 7.1 g/dL (6.4-8.2); UREA NITROGEN, BLOOD 35 mg/dL (7-18)
[2023-02-01] MEDS: IPRATROPIUM BROMIDE 0.5 MG/2.5 ML NEBU NEB SCH ×3 (08:00→14:57)
[2023-02-01] MEDS: ALBUTEROL SULFATE 2.5 MG/3 ML NEBU NEB SCH ×3 (08:00→14:57)
[2023-02-01] MEDS: ACETYLCYSTEINE 10% 4ML VIAL NEB SCH (08:01)
[2023-02-01] MEDS: CHOLECALCIFEROL 1,000 UNIT TABLET PO SCH (09:41)
[2023-02-01] MEDS: FAMOTIDINE 20 MG TABLET GT SCH (09:41)
[2023-02-01] MEDS: ASCORBIC ACID 500 MG TABLET PEG SCH (09:41)
[2023-02-01] MEDS: ZINC SULFATE 220 MG CAPSULE GT SCH (09:41)
[2023-02-01] MEDS: BUMETANIDE 1 MG TABLET GT SCH (09:42)
[2023-02-01] MEDS: MULTIVITAMINS,THERAPEUTIC TABLET GT SCH (09:42)
[2023-02-01] MEDS: PROTEIN SUPPLEMENT (PROSTAT) 30 ML LIQUID GT SCH ×2 (09:43→12:27)
[2023-02-01] MEDS: CLOTRIMAZOLE 1% CREAM 30 GM TUBE TOP SCH (09:45)
[2023-02-01] MEDS: MEDIHONEY= THERAHONEY 1.5 OZ TUBE TOP SCH (09:46)
[2023-02-01] MEDS: JEVITY 1.2 1000 ML LIQUID GT PRN (09:54)
[2023-02-01] MEDS ORDERED: CARBIDOPA/LEVODOPA 25-100MG TABLET GT SCH (12:00)
[2023-02-01] MEDS ORDERED: ACET650S26 GT (15:23)
[2023-02-01] MEDS ORDERED: FAMO20TA8 GT (15:23)
[2023-02-01] MEDS ORDERED: PROT30LI GT (15:23)
[2023-02-01] MEDS ORDERED: MENT113O TOP (15:23)
[2023-02-01] MEDS ORDERED: ALBU2.5V7 NEB (15:23)
[2023-02-01] MEDS ORDERED: CARB1TAB21 GT (15:23)
[2023-02-01] MEDS ORDERED: IPRA0.2S6 NEB (15:23)
[2023-02-01] MEDS ORDERED: ASCO500T21 PEG (15:23)
[2023-02-01] MEDS ORDERED: MULT-24 GT (15:23)
[2023-02-01] MEDS ORDERED: ZINC1CAP3 GT (15:23)
[2023-02-01] MEDS ORDERED: BUME1TAB8 GT (15:23)
[2023-02-01] MEDS ORDERED: MODA100T29 GT (15:23)
[2023-02-01] MEDS ORDERED: RIVA15TA PO (15:23)
[2023-02-01] MEDS ORDERED: ACID1TAB4 GT (15:23)
[2023-02-01] MEDS ORDERED: LACT-209 GT (15:23)
[2023-02-01] MEDS ORDERED: CLOT30CR24 TOP (15:23)
== END 2023-02-01 17:30 | DRG 5 ==
LOC: ER 21:05 → TRANSITION 23:43 → CCU 12-27 20:31 → TRANSITION 12-29 19:52 → TELE3 01-04 12:37 → TRANSITION 01-10 12:38 → CCU 01-10 19:46 → TELE3 01-28 18:17
PROVIDERS: ADMIT Internal Medicine; ATTEND Internal Medicine
PROC: 5A1955Z Respiratory Ventilation, Greater than 96 Consecutive Hours (ICD-10-PCS; principal; 2022-12-26)
PROC: 0BH17EZ Insertion of Endotracheal Airway into Trachea, Via Natural or Artificial Opening (ICD-10-PCS; 2022-12-26)
PROC: 02HV33Z Insertion of Infusion Device into Superior Vena Cava, Percutaneous Approach (ICD-10-PCS; 2022-12-27)
PROC: 0BH17EZ Insertion of Endotracheal Airway into Trachea, Via Natural or Artificial Opening (ICD-10-PCS; 2023-01-10)
PROC: 5A1935Z Respiratory Ventilation, Less than 24 Consecutive Hours (ICD-10-PCS; 2023-01-10)
PROC: 0DH63UZ Insertion of Feeding Device into Stomach, Percutaneous Approach (ICD-10-PCS; 2023-01-14)
PROC: 05HC33Z Insertion of Infusion Device into Left Basilic Vein, Percutaneous Approach (ICD-10-PCS; 2023-01-17)
PROC: 0B110F4 Bypass Trachea to Cutaneous with Tracheostomy Device, Open Approach (ICD-10-PCS; 2023-01-22)
DX: A41.51 Sepsis due to Escherichia coli [E. coli] (principal); N17.0 Acute kidney failure with tubular necrosis; J69.0 Pneumonitis due to inhalation of food and vomit; G92.8 Other toxic encephalopathy; R65.21 Severe sepsis with septic shock; R57.1 Hypovolemic shock; E43 Unspecified severe protein-calorie malnutrition; A04.72 Enterocolitis due to Clostridium difficile, not specified as recurrent; I50.31 Acute diastolic (congestive) heart failure; J15.5 Pneumonia due to Escherichia coli; J15.6 Pneumonia due to other Gram-negative bacteria; J96.01 Acute respiratory failure with hypoxia; A41.89 Other specified sepsis; Z74.09 Other reduced mobility; D68.59 Other primary thrombophilia; G91.2 (Idiopathic) normal pressure hydrocephalus; G20 Parkinson's disease; F02.80 Dementia in other diseases classified elsewhere, unspecified severity, without behavioral disturbance, psychotic disturbance, mood disturbance, and anxiety; Z16.12 Extended spectrum beta lactamase (ESBL) resistance; Z20.822 Contact with and (suspected) exposure to COVID-19; I08.1 Rheumatic disorders of both mitral and tricuspid valves; I25.10 Atherosclerotic heart disease of native coronary artery without angina pectoris; I27.20 Pulmonary hypertension, unspecified; R13.10 Dysphagia, unspecified; S30.0XXA Contusion of lower back and pelvis, initial encounter; E87.0 Hyperosmolality and hypernatremia; E87.5 Hyperkalemia; E88.09 Other disorders of plasma-protein metabolism, not elsewhere classified; E83.51 Hypocalcemia; D69.6 Thrombocytopenia, unspecified; J98.11 Atelectasis; I13.0 Hypertensive heart and chronic kidney disease with heart failure and stage 1 through stage 4 chronic kidney disease, or unspecified chronic kidney disease; N18.9 Chronic kidney disease, unspecified; S30.812A Abrasion of penis, initial encounter; I82.621 Acute embolism and thrombosis of deep veins of right upper extremity; X58.XXXA Exposure to other specified factors, initial encounter; Y92.89 Other specified places as the place of occurrence of the external cause; Z79.01 Long term (current) use of anticoagulants; D63.8 Anemia in other chronic diseases classified elsewhere; Z74.01 Bed confinement status
CPT/HCPCS: 36415; 36569; 36600; 70030-TC; 70450; 71045; 74018; 76604; 76770; 82803; 83550; 83605; 83735; 84100; 84300; 84443; 84478; 84484; 85025; 85730; 86140; 86704; 86803; 87040; 87340; 87806; 93005; 93307; 94002; 94003; 94640; 94664; 94760; 94762; 99082-TC; A4649; A4663; A6209; A6213; C1758; G0378; J0330; J0360; J0690; J0692; J0696; J1644; J1650; J1940; J1956; J2185; J2370; J2916; J3370; J3475; J3490; J3590; J7040; J7050; J7060; P9047

== ENCOUNTER 2023-06-19 10:25 | Inpatient (IN) | payer MEDICAID, OTHER ==
[~2023-06-19] VITALS: Ht 154.9 cm; Wt 65.3 kg
[~2023-06-19 10:25] MED LIST changes: +ACET650S26 GT; +ACID1TAB4 GT; +ALBU2.5V7 NEB; +ASCO500T21 PEG; +BUME1TAB8 GT; +CARB1TAB21 GT; +CLOT30CR24 TOP; -ETOMIDATE 20 MG/10 ML VIAL ONE; +FAMO20TA8 GT; +IPRA0.2S6 NEB; +LACT-209 GT; +MENT113O TOP; +MODA100T29 GT; +MULT-24 GT; +PROT30LI GT; +RIVA15TA PO; -SUCCINYLCHOLINE CHLORIDE 200 MG/10 ML VIAL ONE; +ZINC1CAP3 GT
[2023-06-19] MEDS ORDERED: DOCU100C36 GT (11:24)
[2023-06-19] MEDS ORDERED: LACT1TAB12 GT (11:24)
[2023-06-19] MEDS ORDERED: AMIN30LI2 GT (11:24)
[2023-06-19] MEDS ORDERED: IPRA0.2S48 NEB (11:24)
[2023-06-19] MEDS ORDERED: ACET-2154 GT (11:24)
[2023-06-19] MEDS ORDERED: RIVA15TA GT (11:24)
[2023-06-19] MEDS ORDERED: METO25TA6 GT (11:24)
[2023-06-19] MEDS ORDERED: ACET-3117 GT (11:24)
[2023-06-19] MEDS ORDERED: IPRATROPIUM ALBUT IH (11:24)
[2023-06-19] MEDS ORDERED: OMEP40CA21 GT (11:24)
[2023-06-19] MEDS ORDERED: COLL30OI TP (11:24)
[2023-06-19] MEDS ORDERED: FERROUS SULFATE GT (11:24)
[2023-06-19] MEDS ORDERED: CHLO473M5 PO (11:24)
[2023-06-19] MEDS ORDERED: IV NORMAL SALINE 1000 ML BAG IV ONE (13:00)
[2023-06-19 13:11] LABS: BASOPHILS % (AUTO) 0.4 % (0.0-2.0); EOSINOPHILS # (AUTO) 0.4 K/uL (0.0-0.7); EOSINOPHILS % (AUTO) 6.3 % (0.0-7.0); HEMATOCRIT 23.8 % (36.7-47.1); HEMOGLOBIN 7.7 g/dL (12.5-16.3); LYMPHOCYTES # (AUTO) 1.2 K/uL (0.8-4.8); LYMPHOCYTES % (AUTO) 17.4 % (20.5-51.5); MEAN CORPUSCULAR HEMOGLOBIN 27.4 uug (23.8-33.4); MEAN CORPUSCULAR HGB CONC 33 g/dL (32.5-36.3); MEAN CORPUSCULAR VOLUME 84.2 fL (73.0-96.2); MONOCYTES # (AUTO) 0.8 K/uL (0.1-1.30); MONOCYTES % (AUTO) 12.4 % (0.0-11.0); NEUTROPHILS # (AUTO) 4.3 K/uL (1.8-8.9); NEUTROPHILS % (AUTO) 63.5 % (38.5-71.5); PLATELET COUNT (AUTO) 193 K/uL (152-348); RED BLOOD CELL COUNT(AUTO) 2.83 MIL/uL (4.06-5.63); WHITE BLOOD COUNT (AUTO) 6.7 K/uL (3.6-10.2)
[2023-06-19 13:43] LABS: CARBON DIOXIDE 33 mmol/L (21-32); CHLORIDE 102 mmol/L (98-107); GLUCOSE 104 mg/dL (74-106); NT-PRO BNP 2557 pg/mL (0-125); POTASSIUM 4.9 mmol/L (3.5-5.1); SODIUM SERUM 137 mmol/L (136-145); UREA NITROGEN, BLOOD 56 mg/dL (7-18)
[2023-06-19 13:48] LABS: DIFFERENTIAL COMMENT 1
[2023-06-19 14:00] LABS: ALBUMIN 2.5 g/dL (3.4-5.0); BILIRUBIN,DIRECT 0.2 mg/dL (0.0-0.2); BILIRUBIN,TOTAL 0.4 mg/dL (0.2-1.0); TOTAL PROTEIN, SERUM 7.5 g/dL (6.4-8.2)
[2023-06-19] MEDS ORDERED: ONDANSETRON 4 MG/2 ML VIAL IV PRN (21:00)
[2023-06-19] MEDS ORDERED: NORMAL SALINE FLUSH 10 ML DISP.SYRIN IV PRN (21:00)
[2023-06-19] MEDS ORDERED: ACETAMINOPHEN 650 MG/20 ML UDC- SA PATIENTS-PAIN ONLY GT PRN (21:00)
[2023-06-19] MEDS ORDERED: MORPHINE SULFATE 2 MG/1 ML DISP.SYRIN IV PRN (21:00)
[2023-06-19] MEDS: NORMAL SALINE FLUSH 10 ML DISP.SYRIN IV SCH (21:02)
[2023-06-19 22:35] VITALS: O2SAT 98
[2023-06-19 23:45] VITALS: BP 151/79; TEMP 98.6; O2SAT 100
[2023-06-19] MEDS: CARBIDOPA/LEVODOPA 25-100MG TABLET PO SCH (23:55)
[2023-06-20 04:44] VITALS: BP 146/61; TEMP 98.7; O2SAT 99
[2023-06-20] MEDS: CARBIDOPA/LEVODOPA 25-100MG TABLET PO SCH ×3 (06:01→18:31)
[2023-06-20] MEDS: NORMAL SALINE FLUSH 10 ML DISP.SYRIN IV SCH ×3 (06:01→22:20)
[2023-06-20 08:11] LABS: BASOPHILS # (AUTO) 0.1 K/UL (0.0-0.2); BASOPHILS % (AUTO) 0.9 % (0.0-2.0); EOSINOPHILS # (AUTO) 0.3 K/uL (0.0-0.7); EOSINOPHILS % (AUTO) 3.8 % (0.0-7.0); LYMPHOCYTES # (AUTO) 1.3 K/uL (0.8-4.8); NEUTROPHILS # (AUTO) 4.4 K/uL (1.8-8.9); WHITE BLOOD COUNT (AUTO) 6.9 K/uL (3.6-10.2)
[2023-06-20 08:13] LABS: HEMATOCRIT 22.4 % (36.7-47.1); LYMPHOCYTES % (AUTO) 19.4 % (20.5-51.5); MEAN CORPUSCULAR HEMOGLOBIN 27.6 uug (23.8-33.4); MEAN CORPUSCULAR HGB CONC 33 g/dL (32.5-36.3); MEAN CORPUSCULAR VOLUME 84.2 fL (73.0-96.2); MONOCYTES # (AUTO) 0.9 K/uL (0.1-1.30); MONOCYTES % (AUTO) 12.7 % (0.0-11.0); NEUTROPHILS % (AUTO) 63.2 % (38.5-71.5); PLATELET COUNT (AUTO) 188 K/uL (152-348); RED BLOOD CELL COUNT(AUTO) 2.66 MIL/uL (4.06-5.63); RED CELL DISTRIBUTION WIDTH 17.1 % (12.1-16.2)
[2023-06-20 08:20] VITALS: O2SAT 99
[2023-06-20 08:27] LABS: DIFFERENTIAL COMMENT 1; HEMOGLOBIN 7.4 g/dL (12.5-16.3)
[2023-06-20 08:36] LABS: THYROID STIMULATING HORMONE 3.212 mIU/mL (0.358-3.740)
[2023-06-20 08:46] LABS: ALANINE AMINOTRANSFERASE 12 U/L (16-63); ALBUMIN 2.4 g/dL (3.4-5.0); ALKALINE PHOSPHATASE 70 U/L (50-136); ASPARTATE AMINOTRANSFERASE 15 U/L (15-37); BILIRUBIN,TOTAL 0.5 mg/dL (0.2-1.0); CARBON DIOXIDE 32 mmol/L (21-32); CHLORIDE 104 mmol/L (98-107); CHOLESTEROL 113 mg/dL (<200); CREATININE 1.1 mg/dL (0.6-1.3); GLUCOSE 84 mg/dL (74-106); HDL CHOLESTEROL 31 mg/dL (40-60); MAGNESIUM 2.3 mg/dL (1.8-2.4); NT-PRO BNP 4030 pg/mL (0-125); PHOSPHOROUS 3.5 mg/dL (2.5-4.9); POTASSIUM 5.1 mmol/L (3.5-5.1); SODIUM SERUM 141 mmol/L (136-145); TOTAL PROTEIN, SERUM 7.2 g/dL (6.4-8.2); TRIGLYCERIDES 54 MG/DL (30-150); UREA NITROGEN, BLOOD 40 mg/dL (7-18)
[2023-06-20 09:52] LABS: *BILIRUBIN,URIN NEGATIVE (NEGATIVE); *BLOOD, URINE 1+ (NEGATIVE); *CLARITY,URINE CLEAR (CLEAR); *COLOR,URINE YELLOW (YELLOW); *KETONES,URINE NEGATIVE (NEGATIVE); *PROTEIN,URINE 2+ (NEGATIVE); *UROBILINOGEN,URINE 0.2 E.U./dl (NORMAL); LEUKOCYTE ESTERASE ,URINE 2+ (NEGATIVE); NITRITE, URINE POSITIVE (NEGATIVE); PH,URINE 7.5 (5.0-8.0); UGLUCOSE NEGATIVE (NEGATIVE)
[2023-06-20 09:54] LABS: IRON, SERUM 17 ug/dL (50-175)
[2023-06-20 11:20] VITALS: O2SAT 97
[2023-06-20] MEDS ORDERED: SWABABLE VALVE TRANSFER SET EA MC ONE (11:24)
[2023-06-20] MEDS ORDERED: IOHEXOL 300MG/ML 100 ML INFUS..BTL ONE (11:24)
[2023-06-20] MEDS ORDERED: IV NORMAL SALINE 250 ML IV ONE (11:24)
[2023-06-20 11:31] LABS: WBC,URINE 50-80 /HPF (0-3)
[2023-06-20 11:32] LABS: BACTERIA,URINE MODERATE /HPF (NONE SEEN); SQUAMOUS EPITHELIAL CELL,UR FEW /HPF (NONE SEEN)
[2023-06-20] MEDS: PANTOPRAZOLE ORAL SUSPENSION 40 MG SUSPDR.PKT GT SCH (11:39)
[2023-06-20] MEDS: FUROSEMIDE 20 MG/2 ML VIAL IV SCH (11:40)
[2023-06-20 12:06] LABS: FERRITIN 657 ng/mL (26-388)
[2023-06-20 15:40] VITALS: O2SAT 99
[2023-06-20] MEDS ORDERED: CEFTRIAXONE 1 G in IV DEXTROSE 5% 50 ML IV SCH (16:30)
[2023-06-20 20:52] VITALS: O2SAT 99
[2023-06-20] MEDS ORDERED: VANCOMYCIN IV 1,250 MG in IV DEXTROSE 5% 250 ML IV SCH (21:00)
[2023-06-20] MEDS ORDERED: CEFEPIME HCL 1 G VIAL ONE (21:50)
[2023-06-20] MEDS ORDERED: VANCOMYCIN 1000 MG VIAL ONE (21:51)
[2023-06-20] MEDS ORDERED: CEFEPIME HCL 1 G in IV DEXTROSE 5% 50 ML IV SCH (22:00)
[2023-06-21] VITALS (8 sets, daily range): BP systolic 125–142; BP diastolic 62–82; TEMP 97.7–98.1; O2SAT 98–100
[2023-06-21] MEDS: CEFEPIME HCL 1 G in IV DEXTROSE 5% 50 ML IV SCH ×2 (00:15→06:00)
[2023-06-21] MEDS: CARBIDOPA/LEVODOPA 25-100MG TABLET PO SCH ×5 (00:27→23:04)
[2023-06-21] MEDS ORDERED: IV D5/ 0.9% NACL 1,000 ML IV SCH (05:35)
[2023-06-21] MEDS: NORMAL SALINE FLUSH 10 ML DISP.SYRIN IV SCH ×3 (06:37→21:13)
[2023-06-21] MEDS ORDERED: ACETAMINOPHEN 325 MG TABLET GT PRN (06:45)
[2023-06-21 07:16] LABS: BASOPHILS % (AUTO) 0.4 % (0.0-2.0); EOSINOPHILS # (AUTO) 0.4 K/uL (0.0-0.7); EOSINOPHILS % (AUTO) 4.9 % (0.0-7.0); HEMATOCRIT 23.3 % (36.7-47.1); HEMOGLOBIN 7.7 g/dL (12.5-16.3); LYMPHOCYTES # (AUTO) 0.9 K/uL (0.8-4.8); LYMPHOCYTES % (AUTO) 12.8 % (20.5-51.5); MEAN CORPUSCULAR HEMOGLOBIN 28.1 uug (23.8-33.4); MEAN CORPUSCULAR HGB CONC 33 g/dL (32.5-36.3); MEAN CORPUSCULAR VOLUME 84.7 fL (73.0-96.2); MONOCYTES # (AUTO) 0.8 K/uL (0.1-1.30); MONOCYTES % (AUTO) 11.4 % (0.0-11.0); NEUTROPHILS # (AUTO) 5.2 K/uL (1.8-8.9); NEUTROPHILS % (AUTO) 70.5 % (38.5-71.5); PLATELET COUNT (AUTO) 202 K/uL (152-348); RED BLOOD CELL COUNT(AUTO) 2.75 MIL/uL (4.06-5.63); RED CELL DISTRIBUTION WIDTH 17.5 % (12.1-16.2); WHITE BLOOD COUNT (AUTO) 7.4 K/uL (3.6-10.2)
[2023-06-21 07:24] LABS: DIFFERENTIAL COMMENT 1
[2023-06-21] MEDS: FUROSEMIDE 20 MG/2 ML VIAL IV SCH (09:06)
[2023-06-21] MEDS: PANTOPRAZOLE ORAL SUSPENSION 40 MG SUSPDR.PKT GT SCH (09:06)
[2023-06-21] MEDS: PROTEIN SUPPLEMENT (PROSTAT) 30 ML LIQUID GT SCH (09:12)
[2023-06-21] MEDS: ARGININE/GLUTAMINE/CALCIUM BMB 1 EACH POWD.PACK GT SCH ×2 (09:13→17:18)
[2023-06-21] MEDS ORDERED: EPOETIN ALFA 10,000 UNITS/ML VIAL SQ ONE (11:00)
[2023-06-21 12:00] LABS: CALCIUM 9.1 mg/dL (8.5-10.1); CARBON DIOXIDE 29 mmol/L (21-32); CHLORIDE 105 mmol/L (98-107); CREATININE 1.3 mg/dL (0.6-1.3); GLUCOSE 71 mg/dL (74-106); SODIUM SERUM 143 mmol/L (136-145); UREA NITROGEN, BLOOD 35 mg/dL (7-18)
[2023-06-21] MEDS: CEFEPIME HCL 2 G in IV DEXTROSE 5% 100 ML IV SCH (12:32)
[2023-06-21] MEDS: SOD FERRIC GLUC COMPLX/SUCROSE 125 MG in IV NORMAL SALINE 100 ML IV SCH (17:15)
[2023-06-21] MEDS: MUPIROCIN 2% OINT 22 GM TUBE NS SCH (21:00)
[2023-06-21] MEDS ORDERED: VANCOMYCIN IV 1,000 MG in IV DEXTROSE 5% 250 ML IV SCH (23:00)
[2023-06-21] MEDS: IV D5/ 0.9% NACL 1,000 ML IV PRN (23:06)
[2023-06-22] VITALS (8 sets, daily range): BP systolic 107–161; BP diastolic 56–71; TEMP 97.2–99.2; O2SAT 95–98
[2023-06-22] MEDS: JEVITY 1.2 1000 ML LIQUID GT PRN (01:08)
[2023-06-22] MEDS: NORMAL SALINE FLUSH 10 ML DISP.SYRIN IV SCH ×3 (05:18→21:17)
[2023-06-22] MEDS: CARBIDOPA/LEVODOPA 25-100MG TABLET PO SCH ×4 (05:18→23:51)
[2023-06-22 07:07] LABS: CARBON DIOXIDE 30 mmol/L (21-32); CHLORIDE 106 mmol/L (98-107); CREATININE 1.3 mg/dL (0.6-1.3); GLUCOSE 167 mg/dL (74-106); POTASSIUM 4.3 mmol/L (3.5-5.1); SODIUM SERUM 142 mmol/L (136-145); UREA NITROGEN, BLOOD 50 mg/dL (7-18)
[2023-06-22 07:21] LABS: BASOPHILS # (AUTO) 0.1 K/UL (0.0-0.2); BASOPHILS % (AUTO) 0.9 % (0.0-2.0); DIFFERENTIAL COMMENT 0; EOSINOPHILS # (AUTO) 0.4 K/uL (0.0-0.7); EOSINOPHILS % (AUTO) 5.2 % (0.0-7.0); HEMATOCRIT 24.1 % (36.7-47.1); HEMOGLOBIN 7.8 g/dL (12.5-16.3); LYMPHOCYTES # (AUTO) 0.7 K/uL (0.8-4.8); LYMPHOCYTES % (AUTO) 9.3 % (20.5-51.5); MEAN CORPUSCULAR HEMOGLOBIN 27.4 uug (23.8-33.4); MEAN CORPUSCULAR HGB CONC 32 g/dL (32.5-36.3); MEAN CORPUSCULAR VOLUME 84.7 fL (73.0-96.2); MONOCYTES # (AUTO) 0.7 K/uL (0.1-1.30); MONOCYTES % (AUTO) 9.9 % (0.0-11.0); NEUTROPHILS # (AUTO) 5.4 K/uL (1.8-8.9); NEUTROPHILS % (AUTO) 74.7 % (38.5-71.5); PLATELET COUNT (AUTO) 207 K/uL (152-348); RED BLOOD CELL COUNT(AUTO) 2.85 MIL/uL (4.06-5.63); RED CELL DISTRIBUTION WIDTH 17.6 % (12.1-16.2); WHITE BLOOD COUNT (AUTO) 7.2 K/uL (3.6-10.2)
[2023-06-22] MEDS: PANTOPRAZOLE ORAL SUSPENSION 40 MG SUSPDR.PKT GT SCH (10:24)
[2023-06-22] MEDS: FUROSEMIDE 20 MG/2 ML VIAL IV SCH (10:24)
[2023-06-22] MEDS: MUPIROCIN 2% OINT 22 GM TUBE NS SCH ×2 (10:24→21:17)
[2023-06-22] MEDS: PROTEIN SUPPLEMENT (PROSTAT) 30 ML LIQUID GT SCH (10:26)
[2023-06-22] MEDS: ARGININE/GLUTAMINE/CALCIUM BMB 1 EACH POWD.PACK GT SCH ×2 (10:27→18:57)
[2023-06-22] MEDS: CEFEPIME HCL 2 G in IV DEXTROSE 5% 100 ML IV SCH (12:54)
[2023-06-22] MEDS: SODIUM HYPOCHLORITE 0.125% (QUARTER STRENGTH) 473 ML BOTTLE TP SCH (13:51)
[2023-06-22] MEDS: SOD FERRIC GLUC COMPLX/SUCROSE 125 MG in IV NORMAL SALINE 100 ML IV SCH (14:27)
[2023-06-22] MEDS: IV D5/ 0.9% NACL 1,000 ML IV PRN (21:17)
[2023-06-23] VITALS (14 sets, daily range): BP systolic 122–156; BP diastolic 36–75; TEMP 98.3–99.5; O2SAT 96–100
[2023-06-23] MEDS: JEVITY 1.2 1000 ML LIQUID GT PRN (03:51)
[2023-06-23] MEDS: VANCOMYCIN IV 1,000 MG in IV DEXTROSE 5% 250 ML IV SCH (04:04)
[2023-06-23] MEDS: NORMAL SALINE FLUSH 10 ML DISP.SYRIN IV SCH ×3 (04:05→22:39)
[2023-06-23 04:08] LABS: *IMMUNOGLOBULIN G, SERUM 1818 mg/dL (603-1613); IMMUNOGLOBULIN A, SERUM 478 mg/dL (61-437); IMMUNOGLOBULIN M, SERUM 93 mg/dL (15-143)
[2023-06-23] MEDS: CARBIDOPA/LEVODOPA 25-100MG TABLET PO SCH ×3 (07:06→17:06)
[2023-06-23 07:20] LABS: BASOPHILS % (AUTO) 0.5 % (0.0-2.0); EOSINOPHILS # (AUTO) 0.5 K/uL (0.0-0.7); EOSINOPHILS % (AUTO) 8.3 % (0.0-7.0); HEMATOCRIT 21.4 % (36.7-47.1); LYMPHOCYTES # (AUTO) 0.9 K/uL (0.8-4.8); LYMPHOCYTES % (AUTO) 15.1 % (20.5-51.5); MEAN CORPUSCULAR HEMOGLOBIN 27.9 uug (23.8-33.4); MEAN CORPUSCULAR HGB CONC 33 g/dL (32.5-36.3); MEAN CORPUSCULAR VOLUME 85.2 fL (73.0-96.2); MONOCYTES # (AUTO) 0.7 K/uL (0.1-1.30); MONOCYTES % (AUTO) 11.1 % (0.0-11.0); NEUTROPHILS # (AUTO) 3.9 K/uL (1.8-8.9); PLATELET COUNT (AUTO) 185 K/uL (152-348); RED BLOOD CELL COUNT(AUTO) 2.52 MIL/uL (4.06-5.63); RED CELL DISTRIBUTION WIDTH 18.2 % (12.1-16.2)
[2023-06-23 07:39] LABS: ALANINE AMINOTRANSFERASE 11 U/L (16-63); ALKALINE PHOSPHATASE 59 U/L (50-136); ASPARTATE AMINOTRANSFERASE 11 U/L (15-37); BILIRUBIN,DIRECT 0.2 mg/dL (0.0-0.2); BILIRUBIN,TOTAL 0.3 mg/dL (0.2-1.0); CALCIUM 8.4 mg/dL (8.5-10.1); CARBON DIOXIDE 29 mmol/L (21-32); CHLORIDE 111 mmol/L (98-107); CREATININE 1.2 mg/dL (0.6-1.3); GLUCOSE 143 mg/dL (74-106); MAGNESIUM 2.1 mg/dL (1.8-2.4); PHOSPHOROUS 3.3 mg/dL (2.5-4.9); POTASSIUM 3.9 mmol/L (3.5-5.1); SODIUM SERUM 146 mmol/L (136-145); TOTAL PROTEIN, SERUM 6.8 g/dL (6.4-8.2); UREA NITROGEN, BLOOD 48 mg/dL (7-18)
[2023-06-23 08:08] LABS: AFP, TUMOR MARKER <1.8 ng/mL (0.0-8.4); CARBOHYDRATE ANTIGEN, 19-9 27 U/mL (0-35)
[2023-06-23 08:32] LABS: DIFFERENTIAL COMMENT 1
[2023-06-23] MEDS: PROTEIN SUPPLEMENT (PROSTAT) 30 ML LIQUID GT SCH (09:35)
[2023-06-23] MEDS: ARGININE/GLUTAMINE/CALCIUM BMB 1 EACH POWD.PACK GT SCH ×2 (09:35→17:05)
[2023-06-23] MEDS: PANTOPRAZOLE ORAL SUSPENSION 40 MG SUSPDR.PKT GT SCH (09:35)
[2023-06-23] MEDS: FUROSEMIDE 20 MG/2 ML VIAL IV SCH (09:35)
[2023-06-23] MEDS: SODIUM HYPOCHLORITE 0.125% (QUARTER STRENGTH) 473 ML BOTTLE TP SCH (09:36)
[2023-06-23] MEDS: MUPIROCIN 2% OINT 22 GM TUBE NS SCH ×2 (09:36→20:24)
[2023-06-23] MEDS: CEFEPIME HCL 2 G in IV DEXTROSE 5% 100 ML IV SCH (12:15)
[2023-06-23 13:26] LABS: HEMATOCRIT 23.6 % (36.7-47.1)
[2023-06-23 13:30] LABS: HEMOGLOBIN 7.4 g/dL (12.5-16.3)
[2023-06-23] MEDS: SOD FERRIC GLUC COMPLX/SUCROSE 125 MG in IV NORMAL SALINE 100 ML IV SCH (14:00)
[2023-06-23] MEDS: IV D5/ 0.9% NACL 1,000 ML IV PRN (14:09)
[2023-06-24] VITALS (9 sets, daily range): BP systolic 112–160; BP diastolic 49–79; TEMP 98–98.5; O2SAT 96–100
[2023-06-24] MEDS: CARBIDOPA/LEVODOPA 25-100MG TABLET PO SCH ×4 (00:01→16:55)
[2023-06-24] MEDS: NORMAL SALINE FLUSH 10 ML DISP.SYRIN IV SCH ×3 (05:02→22:13)
[2023-06-24 07:04] LABS: BASOPHILS % (AUTO) 0.5 % (0.0-2.0); EOSINOPHILS # (AUTO) 0.6 K/uL (0.0-0.7); EOSINOPHILS % (AUTO) 7.4 % (0.0-7.0); HEMATOCRIT 26.6 % (36.7-47.1); HEMOGLOBIN 8.7 g/dL (12.5-16.3); LYMPHOCYTES # (AUTO) 1.1 K/uL (0.8-4.8); LYMPHOCYTES % (AUTO) 14.3 % (20.5-51.5); MEAN CORPUSCULAR HEMOGLOBIN 28.2 uug (23.8-33.4); MEAN CORPUSCULAR HGB CONC 33 g/dL (32.5-36.3); MEAN CORPUSCULAR VOLUME 86.3 fL (73.0-96.2); MONOCYTES # (AUTO) 0.9 K/uL (0.1-1.30); MONOCYTES % (AUTO) 12.2 % (0.0-11.0); NEUTROPHILS # (AUTO) 4.9 K/uL (1.8-8.9); NEUTROPHILS % (AUTO) 65.6 % (38.5-71.5); PLATELET COUNT (AUTO) 206 K/uL (152-348); RED BLOOD CELL COUNT(AUTO) 3.08 MIL/uL (4.06-5.63); RED CELL DISTRIBUTION WIDTH 17.7 % (12.1-16.2); WHITE BLOOD COUNT (AUTO) 7.4 K/uL (3.6-10.2)
[2023-06-24 07:06] LABS: A/G RATIO 0.7 (0.7-1.7); ALBUMIN 2.7 g/dL (2.9-4.4); ALPHA-1-GLOBULIN 0.4 g/dL (0.0-0.4); ALPHA-2-GLOBULIN 0.9 g/dL (0.4-1.0); BETA GLOBULIN 1.1 g/dL (0.7-1.3); GAMMA GLOBULIN 1.5 g/dL (0.4-1.8); M-SPIKE Not Observed g/dL (Not Observed)
[2023-06-24 07:26] LABS: CALCIUM 8.9 mg/dL (8.5-10.1); CARBON DIOXIDE 31 mmol/L (21-32); CHLORIDE 113 mmol/L (98-107); CREATININE 1.1 mg/dL (0.6-1.3); GLUCOSE 105 mg/dL (74-106); MAGNESIUM 2.1 mg/dL (1.8-2.4); PHOSPHOROUS 3.1 mg/dL (2.5-4.9); POTASSIUM 4.7 mmol/L (3.5-5.1); SODIUM SERUM 148 mmol/L (136-145); UREA NITROGEN, BLOOD 52 mg/dL (7-18)
[2023-06-24 07:38] LABS: DIFFERENTIAL COMMENT 1
[2023-06-24] MEDS: FUROSEMIDE 20 MG/2 ML VIAL IV SCH (09:05)
[2023-06-24] MEDS: PANTOPRAZOLE ORAL SUSPENSION 40 MG SUSPDR.PKT GT SCH (09:05)
[2023-06-24] MEDS: SODIUM HYPOCHLORITE 0.125% (QUARTER STRENGTH) 473 ML BOTTLE TP SCH (09:07)
[2023-06-24] MEDS: MUPIROCIN 2% OINT 22 GM TUBE NS SCH ×2 (09:07→22:27)
[2023-06-24] MEDS: PROTEIN SUPPLEMENT (PROSTAT) 30 ML LIQUID GT SCH (09:08)
[2023-06-24] MEDS: ARGININE/GLUTAMINE/CALCIUM BMB 1 EACH POWD.PACK GT SCH ×2 (09:08→16:53)
[2023-06-24 09:10] LABS: FREE KAPPA LT CHAINS SERUM 142.8 mg/L (3.3-19.4); FREE LAMBDA LT CHAIN SERUM 116.5 mg/L (5.7-26.3); KAPPA/LAMBDA RATIO SERUM 1.23 (0.26-1.65)
[2023-06-24] MEDS: JEVITY 1.2 1000 ML LIQUID GT PRN (09:15)
[2023-06-24] MEDS: VANCOMYCIN IV 1,000 MG in IV DEXTROSE 5% 250 ML IV SCH (10:57)
[2023-06-24] MEDS: CEFEPIME HCL 2 G in IV DEXTROSE 5% 100 ML IV SCH (12:54)
[2023-06-24] MEDS: IV D5/ 0.9% NACL 1,000 ML IV PRN (17:29)
[2023-06-24] MEDS: QUETIAPINE FUMARATE 25 MG TABLET PO PRN (17:31)
[2023-06-25] VITALS (8 sets, daily range): BP systolic 126–150; BP diastolic 61–89; TEMP 98.1–98.5; O2SAT 97–100
[2023-06-25] MEDS: CARBIDOPA/LEVODOPA 25-100MG TABLET PO SCH ×4 (00:08→17:08)
[2023-06-25 00:10] LABS: FOLATE (FOLIC ACID), SERUM >20.0 ng/mL (>3.0)
[2023-06-25] MEDS: NORMAL SALINE FLUSH 10 ML DISP.SYRIN IV SCH ×3 (06:08→23:12)
[2023-06-25 07:26] LABS: BASOPHILS % (AUTO) 0.6 % (0.0-2.0); EOSINOPHILS # (AUTO) 0.5 K/uL (0.0-0.7); HEMATOCRIT 25.1 % (36.7-47.1); HEMOGLOBIN 8.1 g/dL (12.5-16.3); LYMPHOCYTES # (AUTO) 1.3 K/uL (0.8-4.8); LYMPHOCYTES % (AUTO) 17.4 % (20.5-51.5); MEAN CORPUSCULAR HEMOGLOBIN 28.2 uug (23.8-33.4); MEAN CORPUSCULAR HGB CONC 32 g/dL (32.5-36.3); MEAN CORPUSCULAR VOLUME 87.5 fL (73.0-96.2); MONOCYTES # (AUTO) 0.9 K/uL (0.1-1.30); MONOCYTES % (AUTO) 12.2 % (0.0-11.0); NEUTROPHILS # (AUTO) 4.8 K/uL (1.8-8.9); NEUTROPHILS % (AUTO) 62.8 % (38.5-71.5); PLATELET COUNT (AUTO) 183 K/uL (152-348); RED BLOOD CELL COUNT(AUTO) 2.87 MIL/uL (4.06-5.63); RED CELL DISTRIBUTION WIDTH 18.3 % (12.1-16.2); WHITE BLOOD COUNT (AUTO) 7.6 K/uL (3.6-10.2)
[2023-06-25 07:29] LABS: DIFFERENTIAL COMMENT 1
[2023-06-25 07:50] LABS: CALCIUM 8.6 mg/dL (8.5-10.1); CARBON DIOXIDE 29 mmol/L (21-32); CHLORIDE 114 mmol/L (98-107); CREATININE 1.1 mg/dL (0.6-1.3); GLUCOSE 144 mg/dL (74-106); MAGNESIUM 2.2 mg/dL (1.8-2.4); PHOSPHOROUS 3.2 mg/dL (2.5-4.9); POTASSIUM 4.4 mmol/L (3.5-5.1); SODIUM SERUM 149 mmol/L (136-145); UREA NITROGEN, BLOOD 41 mg/dL (7-18)
[2023-06-25] MEDS: FUROSEMIDE 20 MG/2 ML VIAL IV SCH (09:16)
[2023-06-25] MEDS: PANTOPRAZOLE ORAL SUSPENSION 40 MG SUSPDR.PKT GT SCH (09:16)
[2023-06-25] MEDS: MUPIROCIN 2% OINT 22 GM TUBE NS SCH ×2 (09:16→20:52)
[2023-06-25] MEDS: ARGININE/GLUTAMINE/CALCIUM BMB 1 EACH POWD.PACK GT SCH ×2 (09:17→17:07)
[2023-06-25] MEDS: SODIUM HYPOCHLORITE 0.125% (QUARTER STRENGTH) 473 ML BOTTLE TP SCH (09:17)
[2023-06-25] MEDS: PROTEIN SUPPLEMENT (PROSTAT) 30 ML LIQUID GT SCH (09:17)
[2023-06-25] MEDS: IV D5/ 0.9% NACL 1,000 ML IV PRN (12:12)
[2023-06-25] MEDS: CEFEPIME HCL 2 G in IV DEXTROSE 5% 100 ML IV SCH (12:14)
[2023-06-25] MEDS: IV D5W 1000ML 1,000 ML IV SCH (14:14)
[2023-06-25 16:30] LABS: *SODIUM RNDM,URINE 136 mmol/L (40-220)
[2023-06-25] MEDS: VANCOMYCIN IV 1,000 MG in IV DEXTROSE 5% 250 ML IV SCH (17:07)
[2023-06-25] MEDS: JEVITY 1.2 1000 ML LIQUID GT PRN (20:21)
[2023-06-26] VITALS (9 sets, daily range): BP systolic 127–189; BP diastolic 57–70; TEMP 97.6–98.7; O2SAT 90–99
[2023-06-26] MEDS: CARBIDOPA/LEVODOPA 25-100MG TABLET PO SCH ×4 (00:07→17:40)
[2023-06-26] MEDS: NORMAL SALINE FLUSH 10 ML DISP.SYRIN IV SCH ×3 (05:13→21:27)
[2023-06-26 08:42] LABS: BASOPHILS # (AUTO) 0.1 K/UL (0.0-0.2); BASOPHILS % (AUTO) 0.9 % (0.0-2.0); EOSINOPHILS # (AUTO) 0.5 K/uL (0.0-0.7); EOSINOPHILS % (AUTO) 6.4 % (0.0-7.0); HEMATOCRIT 23.9 % (36.7-47.1); HEMOGLOBIN 7.8 g/dL (12.5-16.3); LYMPHOCYTES # (AUTO) 1.2 K/uL (0.8-4.8); LYMPHOCYTES % (AUTO) 15.9 % (20.5-51.5); MEAN CORPUSCULAR HEMOGLOBIN 28.5 uug (23.8-33.4); MEAN CORPUSCULAR HGB CONC 33 g/dL (32.5-36.3); MEAN CORPUSCULAR VOLUME 87.3 fL (73.0-96.2); MONOCYTES # (AUTO) 0.8 K/uL (0.1-1.30); MONOCYTES % (AUTO) 10.3 % (0.0-11.0); NEUTROPHILS # (AUTO) 5.2 K/uL (1.8-8.9); NEUTROPHILS % (AUTO) 66.5 % (38.5-71.5); PLATELET COUNT (AUTO) 170 K/uL (152-348); RED BLOOD CELL COUNT(AUTO) 2.73 MIL/uL (4.06-5.63); RED CELL DISTRIBUTION WIDTH 18.3 % (12.1-16.2); WHITE BLOOD COUNT (AUTO) 7.8 K/uL (3.6-10.2)
[2023-06-26 09:06] LABS: CARBON DIOXIDE 27 mmol/L (21-32); CHLORIDE 104 mmol/L (98-107); CREATININE 0.9 mg/dL (0.6-1.3); GLUCOSE 141 mg/dL (74-106); PHOSPHOROUS 3.3 mg/dL (2.5-4.9); POTASSIUM 4.2 mmol/L (3.5-5.1); SODIUM SERUM 137 mmol/L (136-145); UREA NITROGEN, BLOOD 31 mg/dL (7-18); URIC ACID 4.5 mg/dL (3.5-7.2)
[2023-06-26 09:15] LABS: DIFFERENTIAL COMMENT 1
[2023-06-26] MEDS: PROTEIN SUPPLEMENT (PROSTAT) 30 ML LIQUID GT SCH (09:34)
[2023-06-26] MEDS: ARGININE/GLUTAMINE/CALCIUM BMB 1 EACH POWD.PACK GT SCH ×2 (09:35→17:40)
[2023-06-26] MEDS: PANTOPRAZOLE ORAL SUSPENSION 40 MG SUSPDR.PKT GT SCH (09:36)
[2023-06-26] MEDS: FUROSEMIDE 20 MG/2 ML VIAL IV SCH (09:37)
[2023-06-26] MEDS: MUPIROCIN 2% OINT 22 GM TUBE NS SCH (09:37)
[2023-06-26] MEDS: SODIUM HYPOCHLORITE 0.125% (QUARTER STRENGTH) 473 ML BOTTLE TP SCH (09:37)
[2023-06-26 10:01] LABS: THYROID STIMULATING HORMONE 2.968 mIU/mL (0.358-3.740)
[2023-06-26] MEDS: QUETIAPINE FUMARATE 25 MG TABLET PO PRN (10:18)
[2023-06-26] MEDS: IV D5W 1000ML 1,000 ML IV SCH (10:32)
[2023-06-26] MEDS ORDERED: LORAZEPAM 2 MG/1 ML VIAL IV ONE (11:30)
[2023-06-26] MEDS ORDERED: GADOTERATE MEGLUMINE 10 MMOL/20 ML VIAL IV ONE (14:36)
[2023-06-26] MEDS: CEFEPIME HCL 2 G in IV DEXTROSE 5% 100 ML IV SCH (14:39)
[2023-06-26] MEDS: JEVITY 1.2 1000 ML LIQUID GT PRN (21:25)
[2023-06-26] MEDS: VANCOMYCIN IV 1,000 MG in IV DEXTROSE 5% 250 ML IV SCH (22:29)
[2023-06-27] VITALS (9 sets, daily range): BP systolic 116–143; BP diastolic 55–70; TEMP 97.6–98.2; O2SAT 98–100
[2023-06-27] MEDS: CARBIDOPA/LEVODOPA 25-100MG TABLET PO SCH ×4 (00:49→17:34)
[2023-06-27] MEDS: NORMAL SALINE FLUSH 10 ML DISP.SYRIN IV SCH ×3 (05:01→21:56)
[2023-06-27 06:32] LABS: BASOPHILS # (AUTO) 0.1 K/UL (0.0-0.2); BASOPHILS % (AUTO) 1.4 % (0.0-2.0); EOSINOPHILS # (AUTO) 0.7 K/uL (0.0-0.7); EOSINOPHILS % (AUTO) 6.9 % (0.0-7.0); HEMATOCRIT 25.1 % (36.7-47.1); HEMOGLOBIN 8.2 g/dL (12.5-16.3); LYMPHOCYTES # (AUTO) 1.1 K/uL (0.8-4.8); LYMPHOCYTES % (AUTO) 11.6 % (20.5-51.5); MEAN CORPUSCULAR HGB CONC 33 g/dL (32.5-36.3); MEAN CORPUSCULAR VOLUME 85.5 fL (73.0-96.2); MONOCYTES # (AUTO) 0.7 K/uL (0.1-1.30); MONOCYTES % (AUTO) 7.3 % (0.0-11.0); NEUTROPHILS # (AUTO) 6.9 K/uL (1.8-8.9); NEUTROPHILS % (AUTO) 72.8 % (38.5-71.5); PLATELET COUNT (AUTO) 184 K/uL (152-348); RED BLOOD CELL COUNT(AUTO) 2.94 MIL/uL (4.06-5.63); RED CELL DISTRIBUTION WIDTH 18.8 % (12.1-16.2); WHITE BLOOD COUNT (AUTO) 9.5 K/uL (3.6-10.2)
[2023-06-27 06:51] LABS: DIFFERENTIAL COMMENT 1
[2023-06-27 07:14] LABS: CALCIUM 8.6 mg/dL (8.5-10.1); PHOSPHOROUS 3.3 mg/dL (2.5-4.9); POTASSIUM 4.5 mmol/L (3.5-5.1)
[2023-06-27] MEDS: IV D5W 1000ML 1,000 ML IV SCH ×2 (07:26→11:43)
[2023-06-27] MEDS: SODIUM HYPOCHLORITE 0.125% (QUARTER STRENGTH) 473 ML BOTTLE TP SCH (09:00)
[2023-06-27] MEDS: ARGININE/GLUTAMINE/CALCIUM BMB 1 EACH POWD.PACK GT SCH ×2 (09:00→16:33)
[2023-06-27] MEDS: PROTEIN SUPPLEMENT (PROSTAT) 30 ML LIQUID GT SCH (10:23)
[2023-06-27] MEDS: FUROSEMIDE 20 MG/2 ML VIAL IV SCH (10:24)
[2023-06-27] MEDS: PANTOPRAZOLE ORAL SUSPENSION 40 MG SUSPDR.PKT GT SCH (10:24)
[2023-06-27] MEDS: CEFEPIME HCL 2 G in IV DEXTROSE 5% 100 ML IV SCH (11:43)
[2023-06-28] VITALS (7 sets, daily range): BP systolic 129–150; BP diastolic 63–72; TEMP 97.8–98.7; O2SAT 92–100
[2023-06-28] MEDS: CARBIDOPA/LEVODOPA 25-100MG TABLET PO SCH ×4 (01:23→17:08)
[2023-06-28] MEDS: VANCOMYCIN IV 1,000 MG in IV DEXTROSE 5% 250 ML IV SCH (05:32)
[2023-06-28] MEDS: NORMAL SALINE FLUSH 10 ML DISP.SYRIN IV SCH ×2 (06:00→15:41)
[2023-06-28 06:44] LABS: BASOPHILS # (AUTO) 0.1 K/UL (0.0-0.2); BASOPHILS % (AUTO) 0.6 % (0.0-2.0); EOSINOPHILS # (AUTO) 0.6 K/uL (0.0-0.7); EOSINOPHILS % (AUTO) 5.6 % (0.0-7.0); HEMATOCRIT 26.7 % (36.7-47.1); HEMOGLOBIN 8.7 g/dL (12.5-16.3); LYMPHOCYTES # (AUTO) 1.6 K/uL (0.8-4.8); LYMPHOCYTES % (AUTO) 15.7 % (20.5-51.5); MEAN CORPUSCULAR HEMOGLOBIN 28.1 uug (23.8-33.4); MEAN CORPUSCULAR HGB CONC 33 g/dL (32.5-36.3); MEAN CORPUSCULAR VOLUME 86.4 fL (73.0-96.2); MONOCYTES # (AUTO) 1.1 K/uL (0.1-1.30); MONOCYTES % (AUTO) 11.1 % (0.0-11.0); NEUTROPHILS # (AUTO) 6.8 K/uL (1.8-8.9); PLATELET COUNT (AUTO) 168 K/uL (152-348); RED BLOOD CELL COUNT(AUTO) 3.09 MIL/uL (4.06-5.63); RED CELL DISTRIBUTION WIDTH 18.5 % (12.1-16.2); WHITE BLOOD COUNT (AUTO) 10.1 K/uL (3.6-10.2)
[2023-06-28 07:11] LABS: CALCIUM 8.5 mg/dL (8.5-10.1); CARBON DIOXIDE 30 mmol/L (21-32); CHLORIDE 101 mmol/L (98-107); GLUCOSE 120 mg/dL (74-106); MAGNESIUM 2.2 mg/dL (1.8-2.4); PHOSPHOROUS 3.5 mg/dL (2.5-4.9); POTASSIUM 4.4 mmol/L (3.5-5.1); SODIUM SERUM 135 mmol/L (136-145); UREA NITROGEN, BLOOD 49 mg/dL (7-18)
[2023-06-28 07:16] LABS: DIFFERENTIAL COMMENT 1
[2023-06-28 07:57] LABS: ABG HCO3 27.5 mmol/L (22.0-26.0); ABG PCO2 37.1 mmHg (35.0-48.0); ABG PH 7.488 (7.340-7.440); ABG PO2 110.1 mmHg (75.0-100.0); ABG TOTAL HEMOGLOBIN 10.2 G/dL (14.0-18.0); AaDO2 98.3 mmHg; COHb 0.3 % (0.0-3.9); MetHb 0.3 % (0.0-1.5); O2Hb 97.5 % (94.0-97.0)
[2023-06-28] MEDS: PANTOPRAZOLE ORAL SUSPENSION 40 MG SUSPDR.PKT GT SCH (11:11)
[2023-06-28] MEDS: ARGININE/GLUTAMINE/CALCIUM BMB 1 EACH POWD.PACK GT SCH ×2 (11:12→17:09)
[2023-06-28] MEDS: FUROSEMIDE 20 MG/2 ML VIAL IV SCH (11:12)
[2023-06-28] MEDS: SODIUM HYPOCHLORITE 0.125% (QUARTER STRENGTH) 473 ML BOTTLE TP SCH (11:13)
[2023-06-28] MEDS: PROTEIN SUPPLEMENT (PROSTAT) 30 ML LIQUID GT SCH (11:13)
[2023-06-28] MEDS: CEFEPIME HCL 2 G in IV DEXTROSE 5% 100 ML IV SCH (11:14)
[2023-06-29] VITALS (8 sets, daily range): BP systolic 17–150; BP diastolic 51–69; TEMP 97.7–98.2; O2SAT 94–100
[2023-06-29] MEDS: CARBIDOPA/LEVODOPA 25-100MG TABLET PO SCH ×5 (01:04→23:18)
[2023-06-29] MEDS: NORMAL SALINE FLUSH 10 ML DISP.SYRIN IV SCH ×4 (01:04→22:26)
[2023-06-29 07:02] LABS: BASOPHILS # (AUTO) 0.1 K/UL (0.0-0.2); BASOPHILS % (AUTO) 0.6 % (0.0-2.0); EOSINOPHILS # (AUTO) 0.5 K/uL (0.0-0.7); EOSINOPHILS % (AUTO) 4.7 % (0.0-7.0); HEMATOCRIT 28.9 % (36.7-47.1); HEMOGLOBIN 9.4 g/dL (12.5-16.3); LYMPHOCYTES # (AUTO) 1.5 K/uL (0.8-4.8); LYMPHOCYTES % (AUTO) 14.5 % (20.5-51.5); MEAN CORPUSCULAR HEMOGLOBIN 27.9 uug (23.8-33.4); MEAN CORPUSCULAR HGB CONC 33 g/dL (32.5-36.3); MEAN CORPUSCULAR VOLUME 85.6 fL (73.0-96.2); MONOCYTES % (AUTO) 9.7 % (0.0-11.0); NEUTROPHILS # (AUTO) 7.4 K/uL (1.8-8.9); NEUTROPHILS % (AUTO) 70.5 % (38.5-71.5); PLATELET COUNT (AUTO) 193 K/uL (152-348); RED BLOOD CELL COUNT(AUTO) 3.37 MIL/uL (4.06-5.63); RED CELL DISTRIBUTION WIDTH 18.3 % (12.1-16.2); WHITE BLOOD COUNT (AUTO) 10.6 K/uL (3.6-10.2)
[2023-06-29 07:23] LABS: DIFFERENTIAL COMMENT 1; MAGNESIUM 2.3 mg/dL (1.8-2.4); PHOSPHOROUS 3.8 mg/dL (2.5-4.9); POTASSIUM 4.4 mmol/L (3.5-5.1)
[2023-06-29] MEDS: PANTOPRAZOLE ORAL SUSPENSION 40 MG SUSPDR.PKT GT SCH (08:38)
[2023-06-29] MEDS: FUROSEMIDE 20 MG/2 ML VIAL IV SCH (08:38)
[2023-06-29] MEDS: SODIUM HYPOCHLORITE 0.125% (QUARTER STRENGTH) 473 ML BOTTLE TP SCH (08:38)
[2023-06-29] MEDS: JEVITY 1.2 1000 ML LIQUID GT PRN (08:39)
[2023-06-29] MEDS: ARGININE/GLUTAMINE/CALCIUM BMB 1 EACH POWD.PACK GT SCH ×2 (08:39→16:41)
[2023-06-29] MEDS: PROTEIN SUPPLEMENT (PROSTAT) 30 ML LIQUID GT SCH (08:39)
[2023-06-29] MEDS: QUETIAPINE FUMARATE 25 MG TABLET PO PRN (08:41)
[2023-06-29] MEDS: CEFEPIME HCL 2 G in IV DEXTROSE 5% 100 ML IV SCH (11:10)
[2023-06-29] MEDS: VANCOMYCIN IV 1,000 MG in IV DEXTROSE 5% 250 ML IV SCH (11:10)
[2023-06-29 17:36] LABS: *BILIRUBIN,URIN NEGATIVE (NEGATIVE); *BLOOD, URINE NEGATIVE (NEGATIVE); *CLARITY,URINE CLEAR (CLEAR); *COLOR,URINE YELLOW (YELLOW); *KETONES,URINE NEGATIVE (NEGATIVE); *PROTEIN,URINE TRACE (NEGATIVE); *UROBILINOGEN,URINE 0.2 E.U./dl (NORMAL); LEUKOCYTE ESTERASE ,URINE 1+ (NEGATIVE); NITRITE, URINE NEGATIVE (NEGATIVE); PH,URINE 5.5 (5.0-8.0); UGLUCOSE NEGATIVE (NEGATIVE)
[2023-06-29 17:37] LABS: RBC,URINE 0-3 /HPF (0-3)
[2023-06-30 04:00] VITALS: BP 118/58; TEMP 97.9; O2SAT 95
[2023-06-30] MEDS: CARBIDOPA/LEVODOPA 25-100MG TABLET PO SCH ×3 (05:02→18:56)
[2023-06-30] MEDS: NORMAL SALINE FLUSH 10 ML DISP.SYRIN IV SCH ×2 (05:02→13:11)
[2023-06-30 08:30] VITALS: O2SAT 96
[2023-06-30 08:38] LABS: BASOPHILS # (AUTO) 0.2 K/UL (0.0-0.2); EOSINOPHILS # (AUTO) 0.5 K/uL (0.0-0.7); EOSINOPHILS % (AUTO) 5.5 % (0.0-7.0); HEMATOCRIT 28.7 % (36.7-47.1); HEMOGLOBIN 9.3 g/dL (12.5-16.3); LYMPHOCYTES # (AUTO) 1.3 K/uL (0.8-4.8); MEAN CORPUSCULAR HEMOGLOBIN 27.8 uug (23.8-33.4); MEAN CORPUSCULAR HGB CONC 33 g/dL (32.5-36.3); MEAN CORPUSCULAR VOLUME 85.4 fL (73.0-96.2); MONOCYTES # (AUTO) 1.1 K/uL (0.1-1.30); MONOCYTES % (AUTO) 12.9 % (0.0-11.0); NEUTROPHILS # (AUTO) 5.4 K/uL (1.8-8.9); NEUTROPHILS % (AUTO) 64.6 % (38.5-71.5); PLATELET COUNT (AUTO) 183 K/uL (152-348); RED BLOOD CELL COUNT(AUTO) 3.36 MIL/uL (4.06-5.63); RED CELL DISTRIBUTION WIDTH 18.6 % (12.1-16.2); WHITE BLOOD COUNT (AUTO) 8.3 K/uL (3.6-10.2)
[2023-06-30 08:43] LABS: DIFFERENTIAL COMMENT 1
[2023-06-30] MEDS: ARGININE/GLUTAMINE/CALCIUM BMB 1 EACH POWD.PACK GT SCH ×2 (08:53→18:59)
[2023-06-30] MEDS: FUROSEMIDE 20 MG/2 ML VIAL IV SCH (08:53)
[2023-06-30] MEDS: PANTOPRAZOLE ORAL SUSPENSION 40 MG SUSPDR.PKT GT SCH (08:53)
[2023-06-30] MEDS: PROTEIN SUPPLEMENT (PROSTAT) 30 ML LIQUID GT SCH (08:54)
[2023-06-30] MEDS: JEVITY 1.2 1000 ML LIQUID GT PRN (08:54)
[2023-06-30] MEDS: SODIUM HYPOCHLORITE 0.125% (QUARTER STRENGTH) 473 ML BOTTLE TP SCH (08:54)
[2023-06-30 09:01] LABS: ALANINE AMINOTRANSFERASE 7 U/L (16-63); ALBUMIN 2.3 g/dL (3.4-5.0); ALKALINE PHOSPHATASE 66 U/L (50-136); ASPARTATE AMINOTRANSFERASE 17 U/L (15-37); BILIRUBIN,TOTAL 0.5 mg/dL (0.2-1.0); CARBON DIOXIDE 31 mmol/L (21-32); CHLORIDE 99 mmol/L (98-107); CREATININE 1.1 mg/dL (0.6-1.3); GLUCOSE 95 mg/dL (74-106); MAGNESIUM 2.5 mg/dL (1.8-2.4); PHOSPHOROUS 4.2 mg/dL (2.5-4.9); POTASSIUM 4.8 mmol/L (3.5-5.1); SODIUM SERUM 135 mmol/L (136-145); TOTAL PROTEIN, SERUM 7.5 g/dL (6.4-8.2); UREA NITROGEN, BLOOD 42 mg/dL (7-18)
[2023-06-30 11:49] VITALS: BP 112/64; TEMP 98.2; O2SAT 98
[2023-06-30 12:00] VITALS: O2SAT 98
[2023-06-30] MEDS: CEFEPIME HCL 2 G in IV DEXTROSE 5% 100 ML IV SCH (13:10)
[2023-06-30] MEDS ORDERED: SODI473S8 TP (14:08)
[2023-06-30] MEDS ORDERED: RIVA10TA GT (14:08)
[2023-06-30 15:56] VITALS: BP 141/61; TEMP 98.1; O2SAT 99
[2023-06-30 16:22] VITALS: O2SAT 97
[2023-06-30] MEDS: VANCOMYCIN IV 1,000 MG in IV DEXTROSE 5% 250 ML IV SCH (18:56)
== END 2023-06-30 20:13 | DRG 710 ==
LOC: ER 10:28 → TRANSITION 17:27 → MEDSURG3 22:01 → TELE3 22:27
PROVIDERS: ADMIT Internal Medicine; ATTEND Internal Medicine
PROC: 30243N1 Transfusion of Nonautologous Red Blood Cells into Central Vein, Percutaneous Approach (ICD-10-PCS; principal; 2023-06-23)
PROC: 0KBN3ZZ Excision of Right Hip Muscle, Percutaneous Approach (ICD-10-PCS; 2023-06-29)
PROC: 0KBP3ZZ Excision of Left Hip Muscle, Percutaneous Approach (ICD-10-PCS; 2023-06-29)
DX: A41.9 Sepsis, unspecified organism (principal); N17.0 Acute kidney failure with tubular necrosis; J69.0 Pneumonitis due to inhalation of food and vomit; G92.8 Other toxic encephalopathy; I50.33 Acute on chronic diastolic (congestive) heart failure; E43 Unspecified severe protein-calorie malnutrition; L89.154 Pressure ulcer of sacral region, stage 4; N39.0 Urinary tract infection, site not specified; B96.5 Pseudomonas (aeruginosa) (mallei) (pseudomallei) as the cause of diseases classified elsewhere; D68.59 Other primary thrombophilia; E87.0 Hyperosmolality and hypernatremia; G91.2 (Idiopathic) normal pressure hydrocephalus; J96.11 Chronic respiratory failure with hypoxia; K76.9 Liver disease, unspecified; R62.7 Adult failure to thrive; Z86.718 Personal history of other venous thrombosis and embolism; J98.11 Atelectasis; Z16.24 Resistance to multiple antibiotics; G20.A1 Parkinson's disease without dyskinesia, without mention of fluctuations; F02.C0 Dementia in other diseases classified elsewhere, severe, without behavioral disturbance, psychotic disturbance, mood disturbance, and anxiety; Z74.01 Bed confinement status; R13.10 Dysphagia, unspecified; I25.10 Atherosclerotic heart disease of native coronary artery without angina pectoris; K80.20 Calculus of gallbladder without cholecystitis without obstruction; R16.1 Splenomegaly, not elsewhere classified; Z87.440 Personal history of urinary (tract) infections; K40.90 Unilateral inguinal hernia, without obstruction or gangrene, not specified as recurrent; E88.09 Other disorders of plasma-protein metabolism, not elsewhere classified; I27.20 Pulmonary hypertension, unspecified; K92.2 Gastrointestinal hemorrhage, unspecified; D64.9 Anemia, unspecified; D72.821 Monocytosis (symptomatic); I07.1 Rheumatic tricuspid insufficiency; I13.0 Hypertensive heart and chronic kidney disease with heart failure and stage 1 through stage 4 chronic kidney disease, or unspecified chronic kidney disease; N17.9 Acute kidney failure, unspecified; N40.0 Benign prostatic hyperplasia without lower urinary tract symptoms; N18.9 Chronic kidney disease, unspecified; N31.9 Neuromuscular dysfunction of bladder, unspecified; D18.03 Hemangioma of intra-abdominal structures; Z78.1 Physical restraint status; M84.454A Pathological fracture, pelvis, initial encounter for fracture; M48.55XA Collapsed vertebra, not elsewhere classified, thoracolumbar region, initial encounter for fracture; Z79.01 Long term (current) use of anticoagulants; Z93.0 Tracheostomy status; Z93.1 Gastrostomy status; Z86.19 Personal history of other infectious and parasitic diseases; Z79.899 Other long term (current) drug therapy
CPT/HCPCS: 36415; 71045; 82105; 82378; 82746; 82784; 83550; 83605; 83735; 84100; 84153; 84155; 84165; 84300; 84443; 84484; 84550; 85018; 85025; 86301; 86334; 86850; 86900; 86901; 86920; 93005; 93307; A6213; A9575; G0378; J0692; J0696; J0885; J1940; J2060; J2916; J3370; J3490; J7040; J7042; J7050; J7070; P9016; Q9967

== ENCOUNTER 2025-02-12 21:47 | Inpatient (IN) | payer OTHER ==
[~2025-02-12] VITALS: Ht 180.3 cm; Wt 87.8 kg
[~2025-02-12 21:47] MED LIST changes: +ACET-2154 GT; -ACET650S26 GT; -ACID1TAB4 GT; -ALBU2.5V7 NEB; +AMIN30LI2 GT; +CHLO473M5 PO; -CLOT30CR24 TOP; +COLL30OI TP; -FAMO20TA8 GT; +FERROUS SULFATE GT; -IPRA0.2S6 NEB; +IPRATROPIUM ALBUT IH; -LACT-209 GT; +LACT1TAB12 GT; -MENT113O TOP; +METO25TA6 GT; -MULT-24 GT; +OMEP40CA21 GT; -PROT30LI GT; +RIVA10TA GT; -RIVA15TA PO; +SODI473S8 TP; -ZINC1CAP3 GT
[2025-02-12 22:24] LABS: PLATELET COUNT (AUTO) 164 K/uL (152-348); RED BLOOD CELL COUNT(AUTO) 4.26 MIL/uL (4.06-5.63); RED CELL DISTRIBUTION WIDTH 16.0 % (12.1-16.2); WHITE BLOOD COUNT (AUTO) 10.5 K/uL (3.6-10.2)
[2025-02-12 22:31] LABS: CREATININE 0.9 mg/dL (0.6-1.3); SODIUM SERUM 132 mmol/L (136-145); UREA NITROGEN, BLOOD 39 mg/dL (7-18)
[2025-02-12 22:37] LABS: ASPARTATE AMINOTRANSFERASE 10 U/L (15-37); TOTAL PROTEIN, SERUM 7.2 g/dL (6.4-8.2)
[2025-02-12] MEDS ORDERED: CHLO473M5 PO (22:38)
[2025-02-12] MEDS ORDERED: LOPE2TAB25 PO (22:38)
[2025-02-12] MEDS ORDERED: WHEA98PO GT (22:38)
[2025-02-12] MEDS ORDERED: IPRA0.2S48 NEB (22:38)
[2025-02-12] MEDS ORDERED: LACT1CAP89 GT (22:38)
[2025-02-12] MEDS ORDERED: WHEY237L GT (22:38)
[2025-02-12] MEDS ORDERED: ZINC220T3 GT (22:38)
[2025-02-12] MEDS ORDERED: [UNRECOGNIZED DRUG - CODE] EACHEYE (22:38)
[2025-02-12] MEDS: IV NORMAL SALINE 1000 ML BAG IV ONE (23:00)
[2025-02-13] VITALS (9 sets, daily range): BP systolic 101–158; BP diastolic 60–98; TEMP 97.5–98.2; O2SAT 90–99
[2025-02-13] MEDS ORDERED: SWABABLE VALVE TRANSFER SET EA MC ONE (01:05)
[2025-02-13] MEDS ORDERED: IV NORMAL SALINE 250 ML IV ONE (01:05)
[2025-02-13] MEDS ORDERED: IOHEXOL 300MG/ML 100 ML INFUS..BTL ONE (01:05)
[2025-02-13] MEDS ORDERED: MAGNESIUM HYDROXIDE 30 ML LIQUID UDC PO PRN (05:00)
[2025-02-13] MEDS ORDERED: ONDANSETRON 4 MG/2 ML VIAL IV PRN (05:00)
[2025-02-13] MEDS: IV NS 1000 ML 1,000 ML IV PRN (06:03)
[2025-02-13] MEDS ORDERED: DEXTROSE 50% 50 ML DISP.SYRIN IV PRN (06:15)
[2025-02-13] MEDS ORDERED: INSULIN REGULAR, HUMAN 1000 UNIT/10 ML VIAL SQ PRN (06:15)
[2025-02-13] MEDS: BLOOD SUGAR DIAGNOSTIC 1 EACH STRIP VI SCH (06:25)
[2025-02-13] MEDS ORDERED: CEFTRIAXONE /D5W 50ML IVPB **ER PYXIS IV ONE (06:31)
[2025-02-13] MEDS: CEFTRIAXONE 1 G in IV DEXTROSE 5% 50 ML IV SCH (06:40)
[2025-02-13] MEDS ORDERED: PANTOPRAZOLE SODIUM 40 MG TABLET.DR PO SCH (07:00)
[2025-02-13 07:19] LABS: PLATELET COUNT (AUTO) 141 K/uL (152-348); RED BLOOD CELL COUNT(AUTO) 3.91 MIL/uL (4.06-5.63); RED CELL DISTRIBUTION WIDTH 16.2 % (12.1-16.2); WHITE BLOOD COUNT (AUTO) 8.0 K/uL (3.6-10.2)
[2025-02-13 07:46] LABS: CREATININE 1.2 mg/dL (0.6-1.3); SODIUM SERUM 134 mmol/L (136-145); UREA NITROGEN, BLOOD 36 mg/dL (7-18)
[2025-02-13] MEDS: PANTOPRAZOLE SODIUM 40 MG VIAL IV SCH (09:24)
[2025-02-13] MEDS: ENOXAPARIN SODIUM 40 MG/0.4 ML DISP.SYRIN SQ SCH (09:29)
[2025-02-13 17:55] LABS: *BILIRUBIN,URIN NEGATIVE (NEGATIVE); *BLOOD, URINE 1+ (NEGATIVE); *CLARITY,URINE CLEAR (CLEAR); *COLOR,URINE YELLOW (YELLOW); *KETONES,URINE NEGATIVE (NEGATIVE); *PROTEIN,URINE 2+ (NEGATIVE); *UROBILINOGEN,URINE 0.2 E.U./dl (NORMAL); LEUKOCYTE ESTERASE ,URINE 3+ (NEGATIVE); NITRITE, URINE POSITIVE (NEGATIVE); UGLUCOSE NEGATIVE (NEGATIVE)
[2025-02-14] VITALS (13 sets, daily range): BP systolic 131–185; BP diastolic 67–86; TEMP 97.8–99.8; O2SAT 92–98
[2025-02-14] MEDS: CEFTRIAXONE 1 G in IV DEXTROSE 5% 50 ML IV SCH (06:03)
[2025-02-14 06:52] LABS: PLATELET COUNT (AUTO) 145 K/uL (152-348); RED BLOOD CELL COUNT(AUTO) 3.83 MIL/uL (4.06-5.63); RED CELL DISTRIBUTION WIDTH 16.2 % (12.1-16.2); WHITE BLOOD COUNT (AUTO) 5.5 K/uL (3.6-10.2)
[2025-02-14 07:12] LABS: CREATININE 1.2 mg/dL (0.6-1.3); SODIUM SERUM 140 mmol/L (136-145); UREA NITROGEN, BLOOD 33 mg/dL (7-18)
[2025-02-14] MEDS: GLUCERNA 1.2 1000ML LIQUID GT PRN (07:52)
[2025-02-14] MEDS: LOSARTAN POTASSIUM 50 MG TABLET GT SCH (18:24)
[2025-02-15] VITALS (8 sets, daily range): BP systolic 104–177; BP diastolic 59–76; TEMP 97.8–101.9; O2SAT 94–99
[2025-02-15] MEDS: ACETAMINOPHEN 325 MG TABLET PO PRN (04:23)
[2025-02-15] MEDS: PANTOPRAZOLE ORAL SUSPENSION 40 MG SUSPDR.PKT GT SCH (06:34)
== END 2025-02-15 14:20 | DRG 254 ==
LOC: ER 21:58 → TELE3 02-13 02:00 → MEDSURG3 02-15 10:11
PROVIDERS: ADMIT Nurse Practitioner Family
DX: K40.20 Bilateral inguinal hernia, without obstruction or gangrene, not specified as recurrent (principal); G92.8 Other toxic encephalopathy; L89.154 Pressure ulcer of sacral region, stage 4; I27.20 Pulmonary hypertension, unspecified; I11.0 Hypertensive heart disease with heart failure; I82.621 Acute embolism and thrombosis of deep veins of right upper extremity; N17.9 Acute kidney failure, unspecified; G91.2 (Idiopathic) normal pressure hydrocephalus; I50.32 Chronic diastolic (congestive) heart failure; E88.09 Other disorders of plasma-protein metabolism, not elsewhere classified; E87.1 Hypo-osmolality and hyponatremia; J96.11 Chronic respiratory failure with hypoxia; M48.54XA Collapsed vertebra, not elsewhere classified, thoracic region, initial encounter for fracture; Z93.0 Tracheostomy status; Z78.1 Physical restraint status; D18.03 Hemangioma of intra-abdominal structures; Z86.718 Personal history of other venous thrombosis and embolism; Z79.01 Long term (current) use of anticoagulants; N50.89 Other specified disorders of the male genital organs; Z87.440 Personal history of urinary (tract) infections; R13.10 Dysphagia, unspecified; K80.20 Calculus of gallbladder without cholecystitis without obstruction; R16.1 Splenomegaly, not elsewhere classified; Z93.1 Gastrostomy status; M62.59 Muscle wasting and atrophy, not elsewhere classified, multiple sites; N31.9 Neuromuscular dysfunction of bladder, unspecified; G20.A1 Parkinson's disease without dyskinesia, without mention of fluctuations; F02.80 Dementia in other diseases classified elsewhere, unspecified severity, without behavioral disturbance, psychotic disturbance, mood disturbance, and anxiety; I25.10 Atherosclerotic heart disease of native coronary artery without angina pectoris; N40.0 Benign prostatic hyperplasia without lower urinary tract symptoms; N39.0 Urinary tract infection, site not specified; D64.9 Anemia, unspecified
CPT/HCPCS: 36415; 72193; 76870; 83735; 84100; 84153; 85025; 87086; 94760; A4606; A4663; A6209; A6213; G0378; J0360; J0696; J1650; J1815; J2470; J7040; Q9967